=== PATIENT | female | born 1940 | race Caucasian/White ===

== ENCOUNTER 2017-09-10 15:45 | Inpatient (IN) | payer MEDICARE, OTHER ==
--- NOTE | 2017-09-10 16:06 | EDM.PDOC ---
ED HPI GENERAL MEDICAL PROBLEM - General Chief Complaint: Respiratory Problem Stated Complaint: fever, cough, SOB Time Seen by Provider: 09/10/17 15:55 Source of Information: Reports: Patient, Family History Limitations: Reports: No Limitations - History of Present Illness INITIAL COMMENTS - FREE TEXT/NARRATIVE: Patient is brought into the emergency room this evening by her daughters. She has complaints of shortness of breath, fever, and increasing weakness. She complains of these symptoms for the last couple of days. She does have a pharmaceutical tomorrow clinic, but her daughter didn't think she could wait until tomorrow. Medically she has a history of COPD, CHF, hypertension, as well as increased blood glucose levels that don't rise to actual diabetic levels. Her primary physician is Dr. Francine Kwon. She denies any other complaints currently. She currently lives at home. Onset: Gradual Duration: Getting Worse Location: Reports: Chest Associated Symptoms: Reports: cough w sputum, Fever/Chills, Shortness of Breath - Related Data Allergies Allergy/AdvReac Type Severity Reaction Status Date / Time No Known Drug Allergies Allergy Other Verified 09/10/17 15:59 seasonal Allergy Itching Uncoded 02/19/16 17:46 Home Meds: Home Meds Budesonide/Formoterol [Symbicort 160-4.5 MCG] 2 puff INH BID 12/15/13 [History] Calcium Citrate/Vitamin D3 [Calcium Citrate with D Tablet] 1 each PO DAILY 12/15 [History] Cholecalciferol (Vitamin D3) [Vitamin D3] 2,000 unit PO DAILY 12/15/13 [History] Glucosamine/D3/Boswellia Tiffanie [Glucosamine Complex Tablet] 1 tab PO DAILY 12/15 [History] Multivitamin [Multivitamins] 1 each PO DAILY 12/15/13 [History] Ascorbate Calcium [Vitamin C] 500 mg PO DAILY 01/25/14 [History] Albuterol [Proventil Neb Soln] 2.5 mg NEB Q4H PRN 11/28/15 [History] Albuterol [Proventil Neb Soln] 2.5 mg NEB QID 11/28/15 [History] Aspirin 81 mg PO DAILY 11/28/15 [History] Cyanocobalamin (Vitamin B-12) [B-12] 500 mcg PO DAILY 11/28/15 [History] Furosemide 40 mg PO BID 11/28/15 [History] Magnesium Oxide [Magnesium] 400 mg PO DAILY 11/28/15 [History] Omeprazole 20 mg PO DAILY 11/28/15 [History] Oxybutynin 5 mg PO BID 11/28/15 [History] Simvastatin [Zocor] 10 mg PO BEDTIME 11/28/15 [History] Docusate Sodium [Colace] 100 mg PO BID 02/19/16 [History] Ferrous Gluconate 324 mg PO Q2D 02/19/16 [History] Potassium Chloride [Klor-Con M20] 20 meq PO DAILY 02/19/16 [History] Acetaminophen [Tylenol] 650 mg PO Q4H PRN #0 tablet 02/25/16 [Rx] Metoprolol Tartrate [Lopressor] 50 mg PO BID tablet 02/25/16 [Rx] Tiotropium [Spiriva Handihaler] 18 mcg INH DAILY 02/27/16 [History] predniSONE 4 mg PO DAILY 09/10/17 [History] Past Medical History HEENT History: Reports: Cataract, Hard of Hearing Cardiovascular History: Reports: CAD, Heart Failure, High Cholesterol, Hypertension, SOB on Exertion Respiratory History: Reports: COPD, SOB Gastrointestinal History: Reports: Diverticulosis, GERD [employer] History: Reports: Ectopic Musculoskeletal History: Reports: Arthritis - Past Surgical History HEENT Surgical History: Reports: Cataract Surgery GI Surgical History: Reports: Appendectomy, Cholecystectomy, Colonoscopy, Hernia , Abdominal Social & Family History - Family History Family Medical History: Noncontributory - Tobacco Use Smoking Status *Q: Former Smoker Years of Tobacco use: 55 Packs/Tins Daily: 1 Used Tobacco, but Quit: Yes Month Tobacco Last Used: 3 years ago Second Hand Smoke Exposure: Yes - Alcohol Use Days Per Week of Alcohol Use: 7 Number of Drinks Per Day: 1 Total Drinks Per Week: 7 - Recreational Drug Use Recreational Drug Use: No ED ROS GENERAL - Review of Systems Review Of Systems: See Below Constitutional: Reports: Fever HEENT: Reports: No Symptoms Respiratory: Reports: Shortness of Breath, Cough, Sputum Cardiovascular: Reports: No Symptoms Endocrine: Reports: No Symptoms GI/Abdominal: Reports: No Symptoms : Reports: No Symptoms Musculoskeletal: Reports: No Symptoms Skin: Reports: No Symptoms Neurological: Reports: Weakness Psychiatric: Reports: No Symptoms Hematologic/Lymphatic: Reports: No Symptoms Immunologic: Reports: No Symptoms ED EXAM, GENERAL - Physical Exam Exam: See Below Exam Limited By: No Limitations General Appearance: Alert, WD/WN, No Apparent Distress Eye Exam: Bilateral Eye: EOMI Ears: Normal TMs Nose: Normal Inspection, Normal Mucosa, No Blood Throat/Mouth: Normal Inspection, Normal Lips, Normal Teeth, Normal Gums, Normal Oropharynx, Normal Voice, No Airway Compromise Head: Atraumatic, Normocephalic Neck: Normal Inspection, Supple, Non-Tender, Full Range of Motion Respiratory/Chest: Decreased Breath Sounds, Rales, Prolonged Expiration Cardiovascular: Irregularly Irregular Peripheral Pulses: 1+: Posterior Tibial (L), Posterior Tibial (R), Dorsalis Pedis (L), Dorsalis Pedis (R) GI/Abdominal: Normal Bowel Sounds, Soft, Non-Tender Extremities: Normal Capillary Refill, Pedal Edema (3+ bilateral edema) Neurological: Alert, Oriented, CN II-XII Intact, Normal Cognition, Normal Gait, Normal Reflexes, No Motor/Sensory Deficits Skin Exam: Wound/Incision (Wound to right big toe that is weeping. Left foot has very poor circulation with poor color) Lymphatic: No Adenopathy EKG INTERPRETATION EKG Date: 09/10/17 Time: 16:54 Rhythm: A-Fib Rate (Beats/Min): 86 Comparison: Change From Previous EKG EKG Interpretation Comments: 1. atrial fibrillation 2. low QRS voltage to precordial leads 3. Possible anterior TX, indeterminant age 4. Inferior TX, indeterminant age 5. Moderate T-wave abnormality, consider lateral ischemia Course - Vital Signs Last Recorded V/S: Last Vital Signs Temp 36.6 C 09/10/17 17:57 Pulse 92 09/10/17 17:57 Resp 22 H 09/10/17 17:57 BP 137/64 09/10/17 17:57 Pulse Ox 92 L 09/10/17 20:00 - Orders/Labs/Meds Orders: Active Orders 24 hr Category Date Time Status RT Aerosol Therapy [RC] ASDIRECTED Care 09/10/17 17:04 Active Chest 1V Frontal [CR] Stat Exams 09/10/17 16:11 Taken CULTURE BLOOD [BC] Stat Lab 09/10/17 16:28 Received CULTURE BLOOD [BC] Stat Lab 09/10/17 16:40 Results CULTURE URINE [RM] Stat Lab 09/10/17 16:11 Ordered CULTURE WOUND [RM] Stat Lab 09/10/17 16:41 Received UA W/MICROSCOPIC [URIN] Stat Lab 09/10/17 16:11 Ordered Sodium Chloride 0.9% [Saline Flush] Med 09/10/17 16:14 Active 10 ml FLUSH ASDIRECTED PRN Blood Culture x2 Reflex Set [OM.PC] Stat Oth 09/10/17 16:11 Ordered Saline Lock Insert [OM.PC] Routine Oth 09/10/17 16:14 Ordered Medication Orders Sodium Chloride (Saline Flush) 10 ml FLUSH ASDIRECTED PRN PRN Reason: Keep Vein Open Labs: Laboratory Tests 09/10/17 09/10/17 09/10/17 Range/Units 16:28 16:28 16:28 WBC 12.6 H (4.0-10.0) x10^3/uL RBC 3.28 L (4.00-5.50) x10^6/uL Hgb 10.3 L (12.0-16.0) g/dL Hct 31.3 L (33.0-47.0) % MCV 95.4 H (78.0-93.0) fL MCH 31.4 (26.0-32.0) pg MCHC 32.9 (32.0-36.0) g/dL RDW Coeff of Ty 14.8 (10.0-15.0) % Plt Count 386 D (130-400) x10^3/uL Add Manual Diff Yes Neutrophils % (Manual) 85 H (50-80) % Band Neutrophils % 1 (0-6) % Lymphocytes % (Manual) 8 L (25-50) % Monocytes % (Manual) 5 (2-11) % Basophils % (Manual) 1 (0-1) % Platelet Estimate Adequate PT (9.8-11.8) SEC INR (2.0-3.5) Sodium 138 (136-145) mmol/L Potassium 3.2 L (3.5-5.1) mmol/L Chloride 93 L (98-107) mmol/L Carbon Dioxide 37 H (21-32) mmol/L BUN 12 (7-18) mg/dL Creatinine 1.0 (0.55-1.02) mg/dL Est Cr Clr Drug Dosing 41.05 mL/min Estimated GFR (MDRD) 53 Glucose 147 H (74-106) mg/dL Lactic Acid 1.2 (0.4-2.0) mmol/L Calcium 8.6 (8.5-10.1) mg/dL Corrected Calcium 9.96 (8.5-10.1) mg/dL Total Bilirubin 0.5 (0.2-1.0) mg/dL AST 18 (15-37) U/L ALT 20 (14-59) U/L Alkaline Phosphatase 102 (46-116) U/L Creatine Kinase 31 (26-192) U/L Troponin I (<=0.056) ng/mL C-Reactive Protein 20.0 H (<=0.9) mg/dL NT-Pro-B Natriuret Pep 907 H (<=450) pg/mL Total Protein 6.7 (6.4-8.2) g/dL Albumin 2.3 L (3.4-5.0) g/dL Globulin 4.4 Albumin/Globulin Ratio 0.52 09/10/17 09/10/17 Range/Units 16:28 16:28 WBC (4.0-10.0) x10^3/uL RBC (4.00-5.50) x10^6/uL Hgb (12.0-16.0) g/dL Hct (33.0-47.0) % MCV (78.0-93.0) fL MCH (26.0-32.0) pg MCHC (32.0-36.0) g/dL RDW Coeff of Ty (10.0-15.0) % Plt Count (130-400) x10^3/uL Add Manual Diff Neutrophils % (Manual) (50-80) % Band Neutrophils % (0-6) % Lymphocytes % (Manual) (25-50) % Monocytes % (Manual) (2-11) % Basophils % (Manual) (0-1) % Platelet Estimate PT 10.7 (9.8-11.8) SEC INR 1.0 L (2.0-3.5) Sodium (136-145) mmol/L Potassium (3.5-5.1) mmol/L Chloride (98-107) mmol/L Carbon Dioxide (21-32) mmol/L BUN (7-18) mg/dL Creatinine (0.55-1.02) mg/dL Est Cr Clr Drug Dosing mL/min Estimated GFR (MDRD) Glucose (74-106) mg/dL Lactic Acid (0.4-2.0) mmol/L Calcium (8.5-10.1) mg/dL Corrected Calcium (8.5-10.1) mg/dL Total Bilirubin (0.2-1.0) mg/dL AST (15-37) U/L ALT (14-59) U/L Alkaline Phosphatase (46-116) U/L Creatine Kinase (26-192) U/L Troponin I < 0.017 (<=0.056) ng/mL C-Reactive Protein (<=0.9) mg/dL NT-Pro-B Natriuret Pep (<=450) pg/mL Total Protein (6.4-8.2) g/dL Albumin (3.4-5.0) g/dL Globulin Albumin/Globulin Ratio Meds: Medications Generic Name Dose Route Start Last Admin Trade Name Freq PRN Reason Stop Dose Admin Sodium Chloride 10 ml 09/10/17 16:14 Saline Flush FLUSH ASDIRECTED PRN Keep Vein Open Discontinued Medications Generic Name Dose Route Start Last Admin Trade Name Freq PRN Reason Stop Dose Admin Albuterol 2.5 mg 09/10/17 17:04 09/10/17 17:15 Proventil Neb Soln NEB 09/10/17 17:05 2.5 mg ONETIME ONE Administration Ciprofloxacin/Dextrose 400 mg/ 200 mls @ 200 mls/hr 09/10/17 16:16 09/10/17 19:48 Premix IV 09/10/17 17:15 200 mls/hr ONETIME ONE Administration Piperacillin Sod/Tazobactam 100 mls @ 200 mls/hr 09/10/17 16:14 09/10/17 16: 47 Sod 4.5 gm/ Sodium Chloride IV 09/10/17 16:43 200 mls/hr ONETIME ONE Administration Vancomycin HCl 1,250 mg/ 250 mls @ 200 mls/hr 09/10/17 16:14 09/10/17 17:33 Sodium Chloride IV 09/10/17 17:28 200 mls/hr ONETIME ONE Administration Ciprofloxacin/Dextrose 400 mg/ 200 mls @ 200 mls/hr 09/10/17 20:00 09/10/17 19:55 Premix IV 09/10/17 20:59 Not Given ONETIME ONE Methylprednisolone Sodium Succinate 125 mg 09/10/17 17:04 09/10/17 17:31 Solu-Medrol IVPUSH 09/10/17 17:05 125 mg ONETIME ONE Administration - Re-Assessments/Exams Free Text/Narrative Re-Assessment/Exam: 09/10/17 21:12 After reviewing all of her x-rays labs and pertinent diagnostics it was felt to admit her at least overnight for observation. It does appear that she's got a bilateral pneumonia that may be starting according to her x-ray. Also on physical exam patient has a weeping wound to the right big toe. Upon inspection it was also found that the rest of her toes on that side of the foot are in need of hygiene as the nails appear that did not of been covered for at least a year there is some severe fungal infection to all nailbeds and the odor is very pungent. Her left foot did not have any wounds but did have very poor circulation and color was a light purple in nature. Pedal pulses were barely palpable to both sides. She does have severe dependent edema, her proBNP is elevated lactic acid is normal but her CRP is elevated as are her WBCs. Based on her history of former smoker COPD CHF and past history of pneumonia and we' ll start her on our sepsis protocol starting her on vancomycin and Zosyn as well as Cipro due to suspicion of pseudomonas infection. Departure - Departure Time of Disposition: 18:10 Disposition: Refer to Observation Condition: Good Clinical Impression: CAP (community acquired pneumonia), COPD (chronic obstructive pulmonary disease ), CHF (congestive heart failure) - Discharge Information - My Orders Last 24 Hours: My Active Orders 09/10/17 16:11 Chest 1V Frontal [CR] Stat CULTURE URINE [RM] Stat UA W/MICROSCOPIC [URIN] Stat Blood Culture x2 Reflex Set [OM.PC] Stat 09/10/17 16:14 Sodium Chloride 0.9% [Saline Flush] 10 ml FLUSH ASDIRECTED PRN Saline Lock Insert [OM.PC] Routine 09/10/17 16:28 CULTURE BLOOD [BC] Stat 09/10/17 16:40 CULTURE BLOOD [BC] Stat 09/10/17 16:41 CULTURE WOUND [RM] Stat 09/10/17 17:04 RT Aerosol Therapy [RC] ASDIRECTED - Assessment/Plan Last 24 Hours: My Active Orders 09/10/17 16:11 Chest 1V Frontal [CR] Stat CULTURE URINE [RM] Stat UA W/MICROSCOPIC [URIN] Stat Blood Culture x2 Reflex Set [OM.PC] Stat 09/10/17 16:14 Sodium Chloride 0.9% [Saline Flush] 10 ml FLUSH ASDIRECTED PRN Saline Lock Insert [OM.PC] Routine 09/10/17 16:28 CULTURE BLOOD [BC] Stat 09/10/17 16:40 CULTURE BLOOD [BC] Stat 09/10/17 16:41 CULTURE WOUND [RM] Stat 09/10/17 17:04 RT Aerosol Therapy [RC] ASDIRECTED
[2017-09-10] MEDS ORDERED: Piperacillin/Tazobactam 4.5 GM in Sodium Chloride 0.9% 100 ML IV ONE (16:14)
[2017-09-10] MEDS ORDERED: Ciprofloxacin in D5W 400 MG in Premix Bag 1 BAG IV ONE ×4 (16:16→20:00)
[2017-09-10] MEDS ORDERED: Albuterol 0.083% 2.5 MG/3 ML Neb Soln NEB ONE (17:04)
[2017-09-10] MEDS ORDERED: methylPREDNISolone Sodium Succinate 125 MG/2 ML SDV IVPUSH ONE (17:04)
[2017-09-10] MEDS ORDERED: Acetaminophen 325 MG Tab PO PRN (21:27)
[2017-09-10] MEDS: Albuterol/Ipratropium 3.0-0.5 MG/3 ML Neb Soln NEB PRN (22:35)
[2017-09-11] MEDS: Piperacillin/Tazobactam 3.375 GM in Sodium Chloride 0.9% 100 ML IV SCH ×3 (00:04→16:31)
[2017-09-11] MEDS: Sodium Chloride 0.9% 10 ML Syringe FLUSH PRN ×3 (00:05→22:11)
[2017-09-11] MEDS: Albuterol/Ipratropium 3.0-0.5 MG/3 ML Neb Soln NEB PRN (07:27)
[2017-09-11] MEDS: Aspirin 81 MG Tab.Chew PO SCH (07:51)
[2017-09-11] MEDS: Docusate Sodium 100 MG Cap PO SCH ×2 (07:51→20:09)
[2017-09-11] MEDS: Enoxaparin 40 MG/0.4 ML Syringe SUBCUT SCH (07:52)
[2017-09-11] MEDS ORDERED: Tiotropium Inhaler 18 MCG Inhalation Powder Cap Kit of 5 INH SCH (08:00)
[2017-09-11] MEDS ORDERED: Ciprofloxacin in D5W 400 MG in Premix Bag 1 BAG IV SCH ×2 (08:00)
[2017-09-11] MEDS ORDERED: Furosemide 100 MG/10 ML SDV IV ONE (08:00)
[2017-09-11] MEDS ORDERED: Non-Formulary Medication 1 Each (Budesonide/Formoterol 2 PUFF) INH SCH (08:00)
[2017-09-11] MEDS ORDERED: Potassium Chloride 20 MEQ Tab.ER PO SCH (08:00)
[2017-09-11] MEDS ORDERED: Albuterol 0.083% 2.5 MG/3 ML Neb Soln NEB PRN (08:43)
[2017-09-11] MEDS: Multivitamins with Iron/Calcium/Folic Acid/Minerals Tab PO SCH (09:43)
[2017-09-11] MEDS: Cyanocobalamin (Vitamin B12) 250 MCG Tab PO SCH (09:43)
[2017-09-11] MEDS: predniSONE 1 MG Tab PO SCH (09:43)
[2017-09-11] MEDS: Omeprazole 20 MG Cap.CR PO SCH (09:43)
[2017-09-11] MEDS: Ascorbic Acid 500 MG Tab PO SCH (09:44)
[2017-09-11] MEDS: Metoprolol Tartrate 50 MG Tab PO SCH ×2 (09:44→20:09)
[2017-09-11] MEDS: Ferrous Sulfate 325 MG Tab PO SCH (09:44)
[2017-09-11] MEDS: Cholecalciferol (Vitamin D3) 1,000 Unit Tab PO SCH (09:46)
[2017-09-11] MEDS: Furosemide 40 MG Tab PO SCH ×2 (09:46→16:31)
[2017-09-11] MEDS: Oxybutynin 5 MG Tab PO SCH ×2 (09:46→20:08)
[2017-09-11] MEDS: Magnesium Oxide 400 MG Tab PO SCH (09:46)
[2017-09-11] MEDS: Calcium Carbonate/Vitamin D3 1250 MG-200 Unit Tab PO SCH (09:46)
[2017-09-11] MEDS: Glucosamine 500 MG Cap PO SCH (09:48)
[2017-09-11] MEDS: Arformoterol 15 MCG/2 ML Neb Soln NEB SCH ×2 (10:19→20:08)
[2017-09-11] MEDS: Budesonide 0.5 MG/2 ML Neb Susp NEB SCH ×2 (10:19→20:08)
--- NOTE | 2017-09-11 10:34 | PCM.PN ---
- General Info Date of Service: 09/11/17 Admission Dx/Problem (Free Text): Pt. was admitted observation yesterday by BELEN Bailey. Pt. was diagnosed with bilat. pnumonia, COPD exacerbation, Mild CHF and UTI. She met sepsis criteria and was started on Zosyn, vancomycin as well as cipro. She states that her work of breathing has improved somewhat. Pt. states that she is still very weak and short of breath. Her appetite is decreased somewhat. Functional Status: Reports: Pain Controlled - Review of Systems General: Reports: No Symptoms HEENT: Reports: No Symptoms Pulmonary: Reports: Shortness of Breath, Cough Cardiovascular: Reports: No Symptoms, Orthopnea, PND Gastrointestinal: Reports: No Symptoms Genitourinary: Reports: Other (UTI) Musculoskeletal: Reports: No Symptoms Skin: Reports: No Symptoms Neurological: Reports: No Symptoms Psychiatric: Reports: No Symptoms - Patient Data Vitals - Most Recent: Last Vital Signs Temp 36.8 C 09/11/17 05:47 Pulse 74 09/11/17 09:54 Resp 22 H 09/11/17 09:54 BP 140/56 L 09/11/17 09:54 Pulse Ox 94 L 09/11/17 09:54 Weight - Most Recent: 78.018 kg I&O - Last 24 Hours: Intake & Output 09/10/17 09/11/17 09/11/17 22:59 06:59 14:59 Intake Total 450 100 240 Balance 450 100 240 Lab Results Last 24 Hours: Laboratory Results - last 24 hr 09/11/17 09/11/17 09/11/17 Range/Units 03:40 06:54 06:54 WBC 14.9 H (4.0-10.0) x10^3/uL RBC 2.97 L (4.00-5.50) x10^6/uL Hgb 9.0 L (12.0-16.0) g/dL Hct 28.4 L (33.0-47.0) % MCV 95.6 H (78.0-93.0) fL MCH 30.3 (26.0-32.0) pg MCHC 31.7 L (32.0-36.0) g/dL RDW Coeff of Ty 14.8 (10.0-15.0) % Plt Count 365 (130-400) x10^3/uL Add Manual Diff Yes Neutrophils % (Manual) 91 H (50-80) % Band Neutrophils % 8 H (0-6) % Lymphocytes % (Manual) 1 L (25-50) % Platelet Estimate Adequate C-Reactive Protein 14.9 H (<=0.9) mg/dL Urine Color Yellow (YELLOW) Urine Appearance Turbid H (CLEAR) Urine pH 6.0 (5.0-8.0) Ur Specific [place] 1.025 Urine Protein Trace H (NEGATIVE) mg/dL Urine Glucose (UA) Negative (NEGATIVE) mg/dL Urine Ketones Negative (NEGATIVE) mg/dL Urine Occult Blood Small H (NEGATIVE) Urine Nitrite Positive H (NEGATIVE) Urine Bilirubin Negative (NEGATIVE) Urine Urobilinogen 0.2 (0.2) EU/dL Ur Leukocyte Esterase Large H (NEGATIVE) Urine RBC 5-10 H (NOT SEEN) /HPF Urine WBC Packed (NOT SEEN) /HPF Urine WBC Clumps Few Ur Squamous Epith Cells Rare (NEGATIVE) /HPF Amorphous Sediment Few Urine Bacteria Moderate H (NEGATIVE) /HPF Duc Results Last 24 Hours: Microbiology 09/10/17 18:10 Gram Stain - Final Sputum - Expectorated Med Orders - Current: Current Medications Acetaminophen (Tylenol) 650 mg PO Q4H PRN PRN Reason: Pain (Mild 1-3)/fever Albuterol (Proventil Neb Soln) 2.5 mg NEB Q4HRRT PRN PRN Reason: Shortness of Breath Albuterol/Ipratropium (Duoneb 3.0-0.5 Mg/3 Ml) 3 ml NEB Q4H PRN PRN Reason: dyspnea/wheezing Last Admin: 09/11/17 07:27 Dose: 3 ml Albuterol/Ipratropium (Duoneb 3.0-0.5 Mg/3 Ml) 3 ml NEB QIDRT [facility] Arformoterol Tartrate (Brovana) 15 mcg NEB BIDRT [facility] Last Admin: 09/11/17 10:19 Dose: 15 mcg Ascorbic Acid (Vitamin C) 500 mg PO DAILY [facility] Last Admin: 09/11/17 09:44 Dose: 500 mg Aspirin (Aspirin) 81 mg PO DAILY [facility] Last Admin: 09/11/17 07:51 Dose: 81 mg Budesonide (Pulmicort) 0.5 mg NEB BIDRT [facility] Last Admin: 09/11/17 10:19 Dose: 0.5 mg Calcium Carbonate (Calcium Carbonate/Vitamin D 1250 Mg-200 Unit) 1 tab PO DAILY [facility] Last Admin: 09/11/17 09:46 Dose: 1 tab Cholecalciferol (Vitamin D3) 2,000 units PO DAILY [facility] Last Admin: 09/11/17 09:46 Dose: 2,000 units Cyanocobalamin (Vitamin B12) 500 mcg PO DAILY [facility] Last Admin: 09/11/17 09:43 Dose: 500 mcg Docusate Sodium (Colace) 100 mg PO BID [facility] Last Admin: 09/11/17 07:51 Dose: 100 mg Enoxaparin Sodium (Lovenox) 40 mg SUBCUT DAILY [facility] Last Admin: 09/11/17 07:52 Dose: 40 mg Ferrous Sulfate (Ferrous Sulfate) 325 mg PO Q2D@0800 [facility] Last Admin: 09/11/17 09:44 Dose: 325 mg Furosemide (Lasix) 40 mg PO BIDDIURETIC [facility] Last Admin: 09/11/17 09:46 Dose: Not Given Glucosamine Sulfate (Glucosamine Sulfate) 500 mg PO DAILY [facility] Last Admin: 09/11/17 09:48 Dose: 500 mg Piperacillin Sod/Tazobactam (Sod 3.375 gm/ Sodium Chloride) 100 mls @ 25 mls/ hr IV Q8H [facility] Last Admin: 09/11/17 09:43 Dose: 25 mls/hr Magnesium Oxide (Magnesium Oxide) 400 mg PO DAILY [facility] Last Admin: 09/11/17 09:46 Dose: 400 mg Methylprednisolone Sodium Succinate (Solu-Medrol) 40 mg IVPUSH Q12H [facility] Metoprolol Tartrate (Lopressor) 50 mg PO BID [facility] Last Admin: 09/11/17 09:44 Dose: 50 mg Multivitamins/Minerals (Thera M Plus) 1 tab PO DAILY [facility] Last Admin: 09/11/17 09:43 Dose: 1 tab Omeprazole (Omeprazole) 20 mg PO DAILY@0700 [facility] Last Admin: 09/11/17 09:43 Dose: 20 mg Oxybutynin Chloride (Oxybutynin) 5 mg PO BID [facility] Last Admin: 09/11/17 09:46 Dose: 5 mg Potassium Chloride (Klor-Con M20) 20 meq PO DAILY [facility] Last Admin: 09/11/17 09:46 Dose: 20 meq Prednisone (Prednisone) 4 mg PO DAILY [facility] Last Admin: 09/11/17 09:43 Dose: 4 mg Simvastatin (Zocor) 10 mg PO BEDTIME [facility] Sodium Chloride (Saline Flush) 10 ml FLUSH ASDIRECTED PRN PRN Reason: Keep Vein Open Last Admin: 09/11/17 00:05 Dose: 10 ml Discontinued Medications Albuterol (Proventil Neb Soln) 2.5 mg NEB ONETIME ONE Stop: 09/10/17 17:05 Last Admin: 09/10/17 17:15 Dose: 2.5 mg Furosemide (Lasix) 80 mg IV ONETIME ONE Stop: 09/11/17 08:01 Last Admin: 09/11/17 07:51 Dose: 80 mg Ciprofloxacin/Dextrose 400 mg/ (Premix) 200 mls @ 200 mls/hr IV ONETIME ONE Stop: 09/10/17 17:15 Last Admin: 09/10/17 19:48 Dose: 200 mls/hr Piperacillin Sod/Tazobactam (Sod 4.5 gm/ Sodium Chloride) 100 mls @ 200 mls/hr IV ONETIME ONE Stop: 09/10/17 16:43 Last Admin: 09/10/17 16:47 Dose: 200 mls/hr Vancomycin HCl 1,250 mg/ (Sodium Chloride) 250 mls @ 200 mls/hr IV ONETIME ONE Stop: 09/10/17 17:28 Last Admin: 09/10/17 17:33 Dose: 200 mls/hr Ciprofloxacin/Dextrose 400 mg/ (Premix) 200 mls @ 200 mls/hr IV ONETIME ONE Stop: 09/10/17 20:59 Last Admin: 09/10/17 19:55 Dose: Not Given Ciprofloxacin/Dextrose 400 mg/ (Premix) 200 mls @ 200 mls/hr IV Q12H [facility] Last Admin: 09/11/17 07:50 Dose: 200 mls/hr Methylprednisolone Sodium Succinate (Solu-Medrol) 125 mg IVPUSH ONETIME ONE Stop: 09/10/17 17:05 Last Admin: 09/10/17 17:31 Dose: 125 mg - Exam Quality Assessment: Supplemental Oxygen General: Alert, Oriented HEENT: Pupils Equal, Pupils Reactive Neck: Supple. No: No Thyromegaly, JVD Lungs: Decreased Breath Sounds, Crackles, Rales, Rhonchi, Wheezing Cardiovascular: No: Regular Rhythm GI/Abdominal Exam: Normal Bowel Sounds, Soft, Non-Tender, No Organomegaly, No Distention, No Abnormal Bruit, No Mass, Pelvis Stable (Female) Exam: Deferred Back Exam: Normal Inspection, Full Range of Motion, Paraspinal Tenderness Extremities: Normal Range of Motion, Non-Tender, Normal Capillary Refill, Other (statis pigmentation and several ulcers noted to legs) Peripheral Pulses: 3+: Radial (L), Radial (R) ( ) Skin: Warm, Dry, Intact Neurological: No New Focal Deficit Psy/Mental Status: Alert, Normal Affect, Normal Mood - Problem List Review Problem List Initiated/Reviewed/Updated: Yes - My Orders Last 24 Hours: My Active Orders 09/11/17 09:09 RT Aerosol Therapy [RC] ASDIRECTED 09/11/17 09:15 Arformoterol [Brovana] 15 mcg NEB BIDRT 09/11/17 09:30 Budesonide [Pulmicort] 0.5 mg NEB BIDRT 09/11/17 10:05 Incentive Spirometry [RT Incentive Spirometry] [RC] ASDIRECTED 09/11/17 10:10 INFLUENZA A+B AG SCREEN [RM] Stat 09/11/17 10:11 Flutter Valve Therapy [RT Chest Physiotherapy] [RC] ASDIRECTED 09/11/17 10:15 methylPREDNISolone Sod Succ [Solu-MEDROL] 40 mg IVPUSH Q12H 09/11/17 10:18 Patient Status [ADT] Routine - Plan Plan:: Pt. is being transitioned from observation to acute. Francine Kwon will take over on the pt. At this point, will DC Cipro, Start Solu Medrol 40mg BID Start incentive spirometry and flutter valve.
[2017-09-11] MEDS: Albuterol/Ipratropium 3.0-0.5 MG/3 ML Neb Soln NEB SCH ×3 (10:47→20:08)
[2017-09-11] MEDS: methylPREDNISolone Sodium Succinate 40 MG/1 ML SDV IVPUSH SCH ×2 (10:55→22:11)
[2017-09-11] MEDS: Potassium Chloride 20 MEQ Tab.ER PO SCH ×2 (17:45→20:08)
[2017-09-11] MEDS: Simvastatin 10 MG Tab PO SCH (20:09)
[2017-09-12] MEDS: Piperacillin/Tazobactam 3.375 GM in Sodium Chloride 0.9% 100 ML IV SCH ×2 (00:57→08:06)
[2017-09-12] MEDS: Omeprazole 20 MG Cap.CR PO SCH ×2 (05:31→06:21)
[2017-09-12] MEDS: Albuterol/Ipratropium 3.0-0.5 MG/3 ML Neb Soln NEB SCH ×4 (07:17→20:05)
[2017-09-12] MEDS: Budesonide 0.5 MG/2 ML Neb Susp NEB SCH (07:17)
[2017-09-12] MEDS: Arformoterol 15 MCG/2 ML Neb Soln NEB SCH ×2 (07:17→20:04)
[2017-09-12] MEDS: Aspirin 81 MG Tab.Chew PO SCH (08:04)
[2017-09-12] MEDS: Ascorbic Acid 500 MG Tab PO SCH (08:05)
[2017-09-12] MEDS: Glucosamine 500 MG Cap PO SCH (08:05)
[2017-09-12] MEDS: Cholecalciferol (Vitamin D3) 1,000 Unit Tab PO SCH (08:05)
[2017-09-12] MEDS: Oxybutynin 5 MG Tab PO SCH ×2 (08:05→20:03)
[2017-09-12] MEDS: Cyanocobalamin (Vitamin B12) 250 MCG Tab PO SCH (08:05)
[2017-09-12] MEDS: Metoprolol Tartrate 50 MG Tab PO SCH ×2 (08:05→20:03)
[2017-09-12] MEDS: Multivitamins with Iron/Calcium/Folic Acid/Minerals Tab PO SCH (08:06)
[2017-09-12] MEDS: Magnesium Oxide 400 MG Tab PO SCH ×3 (08:06→20:03)
[2017-09-12] MEDS: Docusate Sodium 100 MG Cap PO SCH ×2 (08:06→20:05)
[2017-09-12] MEDS: predniSONE 1 MG Tab PO SCH (08:06)
[2017-09-12] MEDS: Potassium Chloride 20 MEQ Tab.ER PO SCH ×2 (08:06→10:10)
[2017-09-12] MEDS: Furosemide 40 MG Tab PO SCH ×2 (08:06→12:56)
[2017-09-12] MEDS: Enoxaparin 40 MG/0.4 ML Syringe SUBCUT SCH (08:06)
[2017-09-12] MEDS: Calcium Carbonate/Vitamin D3 1250 MG-200 Unit Tab PO SCH (08:06)
[2017-09-12] MEDS: Azithromycin 250 MG Tab PO SCH (10:09)
[2017-09-12] MEDS: methylPREDNISolone Sodium Succinate 40 MG/1 ML SDV IVPUSH SCH ×2 (10:11→22:02)
[2017-09-12] MEDS: cefTRIAXone 1 GM Vial IVPUSH SCH (12:56)
--- NOTE | 2017-09-12 14:15 | PN ---
Progress Note for MIGUEL Perez TVEDT Date: 09/12/2017 Room #: VM.202 SUBJECTIVE: Hospital day #3 on a 77-year-old seen today for followup with pneumonia and COPD exacerbation. Her sputum is growing gram-positive cocci in chains. She has been afebrile. Her white count is improving at this point. She has been on Zosyn now for 2 days. She did have a culture on her toe that is growing some coagulase-negative Staph, but that is looking much better now after her bath. She still feels tired, but is not coughing anymore. Her breathing is staying the same. OBJECTIVE: Vital Signs: Her temperature this morning was 98.2, pulse 86, blood pressure 143/51, respiratory rate 18, and O2 96% on 4 L. General: She is in no acute distress. Heart: Irregular with murmur. Respiratory: Lungs sounds decreased again over the left base. She has some crackles noted on the right. Abdomen: Nontender. Extremities: Improving with edema, but still at least 1+ in the ankles. Left foot is bruised. There are no open sores or ulcers. LABORATORY DATA: Lab work today shows white count 13.2, hemoglobin stable at 9, and platelets 397. Sodium 133, potassium 4.1, chloride 94, bicarb 36, BUN 18, creatinine 1, glucose 169, and magnesium 1.5. ASSESSMENT: 1. Community-acquired pneumonia, left lower lobe. Gram-positive cocci on sputum culture. Blood cultures negative. 2. Chronic obstructive pulmonary disease with exacerbation due to pneumonia, severe underlying chronic obstructive pulmonary disease with chronic bronchitis. 3. Chronic hypoxic respiratory failure. 4. Remote history of peptic ulcer disease. 5. Polymyalgia, on prednisone. 6. Irregular heartbeat. EKG today did not show atrial fibrillation, it showed sinus with premature ventricular contractions. 7. Mild hyponatremia. 8. Chronic diastolic heart failure, on oral Lasix 40 b.i.d. 9. Hypomagnesemia, replace orally. 10.Prediabetes with hyperglycemia due to steroids. We will monitor q.i.d. PLAN: At this point, the patient will continue on acute cares. I have stopped IV Zosyn. I will change her over to IV Rocephin and Zithromax. We will continue Lovenox for DVT prophylaxis. We will continue IV Solu-Medrol 40 b.i.d., but decrease that if needed. If she loses her IV again, they should let me know because we could potentially get her over to oral agents in the next day or 2. We will also change her over to code-3 status after discussing with her that she would want CPR, but not an intubation. We talked about it, sort of being an all-or-none concept. Certainly, people can get intubated with pneumonia and then their heart does not stop, but if your heart stops and CPR is started, it is unlikely that your are aware enough to protect your airway. Therefore, it would not make much sense. The patient in the end states, because of declining health over the last couple of years, she just really does not want to have a tube put in, and she does not want to have aggressive interventions like CPR. Therefore, her code status was changed. We will repeat her lab work in the morning. We will keep her on her nebulizers. We will keep her working with incentive spirometry and the flutter valve. ABRAHAMA: 09/12/2017 13:09:32 MODL: 09/12/2017 13:34:07 /[id number] MTDD
--- NOTE | 2017-09-12 14:15 | PN ---
Progress Note for MIGUEL Perez RADHA Date: 09/11/2017 Room #: .202 SUBJECTIVE: Hospital day #2, on a 77-year-old admitted yesterday with pneumonia. She was having a couple of days shortness of breath and cough at home. She is chronically on oxygen up to 4 L. She did not have influenza, but was found to have an elevated white count. Her x-ray was suggesting infiltrate in the right lung base. She was started on IV vanco and Zosyn. There was also some concern for UTI, but she is having no dysuria. Otherwise, her CRP did improve from 20 to 14.5. Her lactic acid was never elevated. She still is short of breath and coughing up some tannish sputum. She is feeling quite fatigued. She had some changes over her toe, but that improved after a bath. There was no redness going up her leg, but some bruising because she dropped some water on it. Otherwise, she has been afebrile since admission. She is denying any chest pain. OBJECTIVE: VITAL SIGNS: Her temperature is 98.2, pulse 74, blood pressure 122/69, respiratory rate 18, O2 90 on 4 L. GENERAL: She is in no acute distress. HEART: Irregular with a murmur noted. RESPIRATORY: Lungs sounds noted to be decreased, probably worse in the left base. Crackles noted over the right lung. ABDOMEN: Nondistended, nontender. Right leg and left leg with 2+ edema at the ankle. MENTAL STATUS: She is alert and orientated x3. DERMATOLOGY: Her skin color is good. She is not overly pale. LABORATORY DATA: Today did show white count down to 14.9, hemoglobin 9, platelets 365. Hemoglobin last through the clinic in April was 11.4. ASSESSMENT: 1. Right lower lobe pneumonia. 2. Severe chronic obstructive pulmonary disease with exacerbation due to pneumonia. 3. Chronic hypoxic respiratory failure due to pneumonia and COPD. 4. History of paroxysmal atrial fibrillation. 5. Prediabetes. 6. Chronic diastolic heart failure stable. She did get a dose of IV Lasix. 7. History of mhp-SR-mbwavsorr myocardial infarction. Troponin was negative on admission. She is not having any chest pain. 8. Polymyalgia rheumatica, on chronic prednisone. 9. Hypokalemia, being replaced orally. 10.Malnutrition, albumin 2.3. PLAN: At this point, the patient will continue acute cares, Andreas Terry has already seen patient this morning and discussed increasing her status to acute cares. We will do IV Zosyn for now and await cultures. Vanco has already been discontinued. She was started on IV Solu-Medrol. We will add q.i.d. Accu- Cheks. We will keep her legs wrapped to help with the swelling. Otherwise, I will repeat lab work in the morning. I will increase her potassium supplements, check a magnesium level. MKA: 09/12/2017 12:57:53 MODL: 09/12/2017 13:14:56 /[id number]
[2017-09-12] MEDS ORDERED: Insulin Aspart 100 Units/ML 3 ML Pen SUBCUT ONE (17:05)
[2017-09-12] MEDS: Sodium Chloride 0.9% 10 ML Syringe FLUSH PRN ×2 (20:01→22:03)
[2017-09-12] MEDS: Simvastatin 10 MG Tab PO SCH (20:03)
[2017-09-12] MEDS: Insulin Detemir 100 Units/ML 3 ML Pen SUBCUT SCH (20:05)
[2017-09-13] MEDS: Omeprazole 20 MG Cap.CR PO SCH (06:32)
[2017-09-13] MEDS: Arformoterol 15 MCG/2 ML Neb Soln NEB SCH ×2 (07:04→20:03)
[2017-09-13] MEDS: Albuterol/Ipratropium 3.0-0.5 MG/3 ML Neb Soln NEB SCH ×4 (07:04→20:03)
[2017-09-13] MEDS: Docusate Sodium 100 MG Cap PO SCH ×2 (07:43→20:26)
[2017-09-13] MEDS: Aspirin 81 MG Tab.Chew PO SCH (07:43)
[2017-09-13] MEDS: Calcium Carbonate/Vitamin D3 1250 MG-200 Unit Tab PO SCH (07:43)
[2017-09-13] MEDS: Cholecalciferol (Vitamin D3) 1,000 Unit Tab PO SCH (07:44)
[2017-09-13] MEDS: Ferrous Sulfate 325 MG Tab PO SCH (07:44)
[2017-09-13] MEDS: Multivitamins with Iron/Calcium/Folic Acid/Minerals Tab PO SCH (07:44)
[2017-09-13] MEDS: Cyanocobalamin (Vitamin B12) 250 MCG Tab PO SCH (07:45)
[2017-09-13] MEDS: Oxybutynin 5 MG Tab PO SCH ×2 (07:45→20:25)
[2017-09-13] MEDS: Metoprolol Tartrate 50 MG Tab PO SCH ×2 (07:45→20:25)
[2017-09-13] MEDS: Ascorbic Acid 500 MG Tab PO SCH (07:46)
[2017-09-13] MEDS: Potassium Chloride 20 MEQ Tab.ER PO SCH (07:46)
[2017-09-13] MEDS: cefTRIAXone 1 GM Vial IVPUSH SCH (07:46)
[2017-09-13] MEDS: Azithromycin 250 MG Tab PO SCH (07:46)
[2017-09-13] MEDS: Enoxaparin 40 MG/0.4 ML Syringe SUBCUT SCH (07:46)
[2017-09-13] MEDS: Furosemide 40 MG Tab PO SCH ×2 (07:46→11:47)
[2017-09-13] MEDS: Magnesium Oxide 400 MG Tab PO SCH ×3 (07:46→20:26)
[2017-09-13] MEDS: Glucosamine 500 MG Cap PO SCH (07:48)
[2017-09-13 07:56] LABS: CHLORIDE,CL 96 mmol/L (98-107); SODIUM,NA 136 mmol/L (136-145)
[2017-09-13] MEDS ORDERED: cefTRIAXone 1 GM Vial IM SCH (09:00)
--- NOTE | 2017-09-13 09:11 | PCM.PN ---
- General Info Date of Service: 09/13/17 Admission Dx/Problem (Free Text): 1. RLL Pneumonia, gram positive cocci in sputum 2. Severe COPD exacerbation due to pneumonia 3. Chronic hypoxic respiratory failure duet to pneumonia and COPD 4. History of Paroxysmal Atrial Fib 5. Prediabetes 6. Chronic diastolic heart failure 7. Hx of Non-STEMI Subjective Update: Patient states her breathing feels about the same today; no better no worse. She states she does not have any pain. Her appetite has been fair. No issues with urination or BM's. She states she is trying to ambulate, but gets difficult with the SOB. No chest pain. No abdominal problems. She continues with chronic swelling of the RLE. SHIRA wraps in place. She still have a cough, but not able to expectorate any sputum. Over all, she feels somewhat better today then yesterday. She feels she has had slight improvement. Functional Status: Reports: Pain Controlled, Tolerating Diet, Urinating Pain Score: 0 - Review of Systems General: Reports: Weakness, Fatigue. Denies: Fever Pulmonary: Reports: Shortness of Breath, Cough. Denies: Sputum Cardiovascular: Denies: Chest Pain, Palpitations Gastrointestinal: Denies: Abdominal Pain, Nausea, Vomiting Skin: Reports: Other (chronic mottling of the left foot) Neurological: Reports: No Symptoms. Denies: Dizziness, Headache - Patient Data Vitals - Most Recent: Last Vital Signs Temp 36.6 C 09/13/17 06:00 Pulse 76 09/13/17 07:45 Resp 20 09/13/17 06:00 BP 144/77 H 09/13/17 07:45 Pulse Ox 97 09/13/17 07:06 Weight - Most Recent: 76.022 kg I&O - Last 24 Hours: Intake & Output 09/12/17 09/13/17 09/13/17 22:59 06:59 14:59 Intake Total 460 350 260 Output Total 100 200 Balance 360 150 260 Lab Results Last 24 Hours: Laboratory Results - last 24 hr 09/12/17 09/12/17 09/12/17 Range/Units 10:59 16:58 19:59 WBC (4.0-10.0) x10^3/uL RBC (4.00-5.50) x10^6/uL Hgb (12.0-16.0) g/dL Hct (33.0-47.0) % MCV (78.0-93.0) fL MCH (26.0-32.0) pg MCHC (32.0-36.0) g/dL RDW Coeff of Ty (10.0-15.0) % Plt Count (130-400) x10^3/uL Add Manual Diff Neutrophils % (Manual) (50-80) % Band Neutrophils % (0-6) % Lymphocytes % (Manual) (25-50) % Monocytes % (Manual) (2-11) % Metamyelocytes % (0) % Hypersegmented Neuts Vacuolated Monocytes Platelet Estimate Giant Platelets Polychromasia Anisocytosis Macrocytosis Spherocytes Ovalocytes Sodium (136-145) mmol/L Potassium (3.5-5.1) mmol/L Chloride (98-107) mmol/L Carbon Dioxide (21-32) mmol/L BUN (7-18) mg/dL Creatinine (0.55-1.02) mg/dL Est Cr Clr Drug Dosing mL/min Estimated GFR (MDRD) Glucose (74-106) mg/dL POC Glucose 139 H 278 H 173 H (74-106) mg/dL Calcium (8.5-10.1) mg/dL 09/13/1718 09/13/17 Range/Units 06:27 07:18 07:18 WBC 11.0 H (4.0-10.0) x10^3/uL RBC 3.08 L (4.00-5.50) x10^6/uL Hgb 9.5 L (12.0-16.0) g/dL Hct 30.0 L (33.0-47.0) % MCV 97.4 H (78.0-93.0) fL MCH 30.8 (26.0-32.0) pg MCHC 31.7 L (32.0-36.0) g/dL RDW Coeff of Ty 15.0 (10.0-15.0) % Plt Count 388 (130-400) x10^3/uL Add Manual Diff Yes Neutrophils % (Manual) 82 H (50-80) % Band Neutrophils % 4 (0-6) % Lymphocytes % (Manual) 7 L (25-50) % Monocytes % (Manual) 4 (2-11) % Metamyelocytes % 3 H (0) % Hypersegmented Neuts Rare H Vacuolated Monocytes Rare Platelet Estimate Adequate Giant Platelets Rare H Polychromasia 1+ slight H Anisocytosis Rare Macrocytosis 1+ slight H Spherocytes 1+ slight H Ovalocytes 1+ slight H Sodium 136 (136-145) mmol/L Potassium 4.0 (3.5-5.1) mmol/L Chloride 96 L (98-107) mmol/L Carbon Dioxide 38 H (21-32) mmol/L BUN 15 (7-18) mg/dL Creatinine 0.9 (0.55-1.02) mg/dL Est Cr Clr Drug Dosing 45.61 mL/min Estimated GFR (MDRD) > 60 Glucose 126 H (74-106) mg/dL POC Glucose 136 H (74-106) mg/dL Calcium 8.6 (8.5-10.1) mg/dL Med Orders - Current: Current Medications Acetaminophen (Tylenol) 650 mg PO Q4H PRN PRN Reason: Pain (Mild 1-3)/fever Albuterol (Proventil Neb Soln) 2.5 mg NEB Q4HRRT PRN PRN Reason: Shortness of Breath Albuterol/Ipratropium (Duoneb 3.0-0.5 Mg/3 Ml) 3 ml NEB QIDRT [facility] Last Admin: 09/13/17 07:04 Dose: 3 ml Arformoterol Tartrate (Brovana) 15 mcg NEB BIDRT [facility] Last Admin: 09/13/17 07:04 Dose: 15 mcg Ascorbic Acid (Vitamin C) 500 mg PO DAILY [facility] Last Admin: 09/13/17 07:46 Dose: 500 mg Aspirin (Aspirin) 81 mg PO DAILY [facility] Last Admin: 09/13/17 07:43 Dose: 81 mg Azithromycin (Zithromax) 500 mg PO DAILY [facility] Stop: 09/16/17 08:01 Last Admin: 09/13/17 07:46 Dose: 500 mg Calcium Carbonate (Calcium Carbonate/Vitamin D 1250 Mg-200 Unit) 1 tab PO DAILY [facility] Last Admin: 09/13/17 07:43 Dose: 1 tab Ceftriaxone Sodium (Rocephin) 1 gm IM DAILY [facility] Cholecalciferol (Vitamin D3) 2,000 units PO DAILY [facility] Last Admin: 09/13/17 07:44 Dose: 2,000 units Cyanocobalamin (Vitamin B12) 500 mcg PO DAILY [facility] Last Admin: 09/13/17 07:45 Dose: 500 mcg Docusate Sodium (Colace) 100 mg PO BID [facility] Last Admin: 09/13/17 07:43 Dose: Not Given Enoxaparin Sodium (Lovenox) 40 mg SUBCUT DAILY [facility] Last Admin: 09/13/17 07:46 Dose: 40 mg Ferrous Sulfate (Ferrous Sulfate) 325 mg PO Q2D@0800 [facility] Last Admin: 09/13/17 07:44 Dose: 325 mg Furosemide (Lasix) 40 mg PO BID@0800,1200 [facility] Last Admin: 09/13/17 07:46 Dose: 40 mg Glucosamine Sulfate (Glucosamine Sulfate) 500 mg PO DAILY [facility] Last Admin: 09/13/17 07:48 Dose: 500 mg Insulin Detemir (Levemir) 6 unit SUBCUT BEDTIME [facility] Last Admin: 09/12/17 20:05 Dose: 6 units Magnesium Oxide (Magnesium Oxide) 400 mg PO TID [facility] Last Admin: 09/13/17 07:46 Dose: 400 mg Methylprednisolone Sodium Succinate (Solu-Medrol) 40 mg IVPUSH Q12H [facility] Last Admin: 09/12/17 22:02 Dose: 40 mg Metoprolol Tartrate (Lopressor) 50 mg PO BID [facility] Last Admin: 09/13/17 07:45 Dose: 50 mg Multivitamins/Minerals (Thera M Plus) 1 tab PO DAILY [facility] Last Admin: 09/13/17 07:44 Dose: 1 tab Omeprazole (Omeprazole) 20 mg PO DAILY@0700 [facility] Last Admin: 09/13/17 06:32 Dose: 20 mg Oxybutynin Chloride (Oxybutynin) 5 mg PO BID [facility] Last Admin: 09/13/17 07:45 Dose: 5 mg Potassium Chloride (Klor-Con M20) 20 meq PO DAILY [facility] Last Admin: 09/13/17 07:46 Dose: 20 meq Simvastatin (Zocor) 10 mg PO BEDTIME [facility] Last Admin: 09/12/17 20:03 Dose: 10 mg Sodium Chloride (Saline Flush) 10 ml FLUSH ASDIRECTED PRN PRN Reason: Keep Vein Open Last Admin: 09/12/17 22:03 Dose: 10 ml Discontinued Medications Albuterol (Proventil Neb Soln) 2.5 mg NEB ONETIME ONE Stop: 09/10/17 17:05 Last Admin: 09/10/17 17:15 Dose: 2.5 mg Albuterol/Ipratropium (Duoneb 3.0-0.5 Mg/3 Ml) 3 ml NEB Q4H PRN PRN Reason: dyspnea/wheezing Last Admin: 09/11/17 07:27 Dose: 3 ml Budesonide (Pulmicort) 0.5 mg NEB BIDRT [facility] Last Admin: 09/12/17 07:17 Dose: 0.5 mg Ceftriaxone Sodium (Rocephin) 1 gm IVPUSH DAILY [facility] Last Admin: 09/13/17 07:46 Dose: Not Given Furosemide (Lasix) 40 mg PO BIDDIURETIC [facility] Last Admin: 09/12/17 08:06 Dose: 40 mg Furosemide (Lasix) 80 mg IV ONETIME ONE Stop: 09/11/17 08:01 Last Admin: 09/11/17 07:51 Dose: 80 mg Ciprofloxacin/Dextrose 400 mg/ (Premix) 200 mls @ 200 mls/hr IV ONETIME ONE Stop: 09/10/17 17:15 Last Admin: 09/10/17 19:48 Dose: 200 mls/hr Piperacillin Sod/Tazobactam (Sod 4.5 gm/ Sodium Chloride) 100 mls @ 200 mls/hr IV ONETIME ONE Stop: 09/10/17 16:43 Last Admin: 09/10/17 16:47 Dose: 200 mls/hr Vancomycin HCl 1,250 mg/ (Sodium Chloride) 250 mls @ 200 mls/hr IV ONETIME ONE Stop: 09/10/17 17:28 Last Admin: 09/10/17 17:33 Dose: 200 mls/hr Ciprofloxacin/Dextrose 400 mg/ (Premix) 200 mls @ 200 mls/hr IV ONETIME ONE Stop: 09/10/17 20:59 Last Admin: 09/10/17 19:55 Dose: Not Given Ciprofloxacin/Dextrose 400 mg/ (Premix) 200 mls @ 200 mls/hr IV Q12H [facility] Last Admin: 09/11/17 07:50 Dose: 200 mls/hr Piperacillin Sod/Tazobactam (Sod 3.375 gm/ Sodium Chloride) 100 mls @ 25 mls/ hr IV Q8H [facility] Last Admin: 09/12/17 08:06 Dose: 25 mls/hr Insulin Aspart (Novolog) 3 unit SUBCUT ONETIME ONE Stop: 09/12/17 17:06 Last Admin: 09/12/17 17:33 Dose: 3 units Magnesium Oxide (Magnesium Oxide) 400 mg PO DAILY [facility] Last Admin: 09/12/17 08:06 Dose: 400 mg Methylprednisolone Sodium Succinate (Solu-Medrol) 125 mg IVPUSH ONETIME ONE Stop: 09/10/17 17:05 Last Admin: 09/10/17 17:31 Dose: 125 mg Potassium Chloride (Klor-Con M20) 20 meq PO DAILY [facility] Last Admin: 09/11/17 09:46 Dose: 20 meq Potassium Chloride (Klor-Con M20) 20 meq PO TID [facility] Last Admin: 09/12/17 08:06 Dose: 20 meq Prednisone (Prednisone) 4 mg PO DAILY [facility] Last Admin: 09/12/17 08:06 Dose: 4 mg - Exam Quality Assessment: Supplemental Oxygen, DVT Prophylaxis General: Alert, Oriented, Cooperative, No Acute Distress Lungs: Decreased Breath Sounds, Wheezing (right lower and left lower lung bases) Cardiovascular: Regular Rate, Regular Rhythm GI/Abdominal Exam: Normal Bowel Sounds, Soft, Non-Tender Peripheral Pulses: 2+: Radial (L), Radial (R) Skin: Warm, Dry, Intact, Other (chronic mottling of left foot, no open areas assessed.) Neurological: No New Focal Deficit - Problem List & Annotations (1) CAP (community acquired pneumonia) SNOMED Code(s): 077497477 Code(s): J18.9 - PNEUMONIA, UNSPECIFIED ORGANISM Status: Acute Priority: Medium Current Visit: Yes Qualifiers: Laterality: right Lung location: lower lobe of lung Qualified Code(s): J18.1 - Lobar pneumonia, unspecified organism (2) COPD exacerbation SNOMED Code(s): 980595927 Code(s): J44.1 - CHRONIC OBSTRUCTIVE PULMONARY DISEASE W (ACUTE) EXACERBATION Status: Acute Priority: Medium Current Visit: Yes (3) Respiratory failure with hypoxia SNOMED Code(s): 71517863206929688 Code(s): J96.91 - RESPIRATORY FAILURE, UNSPECIFIED WITH HYPOXIA Status: Acute Priority: High Current Visit: Yes Qualifiers: Chronicity: acute on chronic Qualified Code(s): J96.21 - Acute and chronic respiratory failure with hypoxia (4) Paroxysmal atrial fibrillation SNOMED Code(s): 793078156 Code(s): I48.0 - PAROXYSMAL ATRIAL FIBRILLATION Status: Chronic Priority : Low Current Visit: No (5) Pre-diabetes SNOMED Code(s): 820843195 Code(s): R73.09 - OTHER ABNORMAL GLUCOSE Status: Chronic Current Visit: No (6) CHF (congestive heart failure) SNOMED Code(s): 40852134 Code(s): I50.9 - HEART FAILURE, UNSPECIFIED Status: Chronic Current Visit : No Qualifiers: Heart failure type: diastolic Heart failure chronicity: chronic Qualified Code(s): I50.32 - Chronic diastolic (congestive) heart failure (7) History of non-ST elevation myocardial infarction (NSTEMI) SNOMED Code(s): 561054288 Code(s): I25.2 - OLD MYOCARDIAL INFARCTION Status: Chronic Priority: Low Current Visit: No - Problem List Review Problem List Initiated/Reviewed/Updated: Yes - My Orders Last 24 Hours: My Active Orders 09/13/17 09:00 cefTRIAXone [Rocephin] 1 gm IM DAILY - Plan Plan:: Hospital day #4 for a 77 yo female with a past medical history of COPD, hypoxic respiratory failure secondary to COPD, AFib, chronic CHF, and prediabetes admitted on 09/10/2017 with a diagnosis of RLL Pneumonia, severe COPD exacerbation secondary to pneumonia, chronic hypoxic respiratory failure due to pneumonia and COPD, chronic AFib, prediabetes, and chronic diastolic HF. Will change Rocephin to 1gram IM as the patient does not have IV access any more. Continue with PO Azithromycin. Continue with I.S. and flutter valve as this seems to be helping. Continue DuoNebs as ordered. Would recommend increasing activity as tolerated. No change with SoluMedrol as her blood sugars are remaining stable, but will continue with Accuchecks and monitor. Will need to change IV SoluMedrol to PO Prednisone due to no IV access. SoluMedrol to Prednisone equivalent if 50mg, but will decrease to 40mg PO for dosing reasons. Patient will continue on acute cares at this point. I do not anticipate a discharge home for another few days.
[2017-09-13] MEDS ORDERED: cefTRIAXone 1 GM, Lidocaine 1% 2.1 ML IM SCH ×2 (10:30)
[2017-09-13] MEDS: cefTRIAXone 1 GM Vial IM SCH (10:43)
[2017-09-13] MEDS: predniSONE 20 MG Tab PO SCH ×2 (10:44→20:26)
[2017-09-13] MEDS ORDERED: Insulin Aspart 100 Units/ML 3 ML Pen SUBCUT ONE (17:14)
[2017-09-13] MEDS: Simvastatin 10 MG Tab PO SCH (20:25)
[2017-09-13] MEDS: Insulin Detemir 100 Units/ML 3 ML Pen SUBCUT SCH (20:26)
[2017-09-14] MEDS: Omeprazole 20 MG Cap.CR PO SCH (06:25)
[2017-09-14] MEDS: Arformoterol 15 MCG/2 ML Neb Soln NEB SCH ×2 (07:11→19:41)
[2017-09-14] MEDS: Albuterol/Ipratropium 3.0-0.5 MG/3 ML Neb Soln NEB SCH ×4 (07:11→19:41)
--- NOTE | 2017-09-14 08:11 | PCM.PN ---
- General Info Date of Service: 09/14/17 Admission Dx/Problem (Free Text): 1. RLL Pneumonia, gram positive cocci in sputum 2. Severe COPD exacerbation due to pneumonia 3. Chronic hypoxic respiratory failure duet to pneumonia and COPD 4. History of Paroxysmal Atrial Fib 5. Prediabetes 6. Chronic diastolic heart failure 7. Hx of Non-STEMI Subjective Update: Patient states her breathing has improved from yesterday. She has started to expectorate more sputum this AM after her breathing treatment. She states she did not sleep well last night due to excess noise. No issues with BM's or urination. No chest pain. Still feels SOB, but this is chronic. No new symptoms. Functional Status: Reports: Pain Controlled, Tolerating Diet, Urinating Pain Score: 0 - Review of Systems General: Reports: Weakness. Denies: Fever, Chills Pulmonary: Reports: Shortness of Breath, Cough, Sputum. Denies: Pleuritic Chest Pain, Wheezing Cardiovascular: Denies: Chest Pain, Palpitations Gastrointestinal: Denies: Abdominal Pain, Nausea, Vomiting Skin: Reports: Bruising (bilateral arms) Neurological: Reports: No Symptoms. Denies: Dizziness, Headache - Patient Data Vitals - Most Recent: Last Vital Signs Temp 36.8 C 09/14/17 06:00 Pulse 82 09/14/17 06:00 Resp 20 09/14/17 06:00 BP 132/70 09/14/17 06:00 Pulse Ox 97 09/14/17 07:15 Weight - Most Recent: 76.022 kg I&O - Last 24 Hours: Intake & Output 09/13/17 09/14/17 09/14/17 22:59 06:59 14:59 Intake Total 360 650 Output Total 100 Balance 260 650 Lab Results Last 24 Hours: Laboratory Results - last 24 hr 09/13/17 09/13/17 09/13/17 Range/Units 07:18 07:18 11:35 Neutrophils % (Manual) 82 H (50-80) % Band Neutrophils % 4 (0-6) % Lymphocytes % (Manual) 7 L (25-50) % Monocytes % (Manual) 4 (2-11) % Metamyelocytes % 3 H (0) % Hypersegmented Neuts Rare H Vacuolated Monocytes Rare Platelet Estimate Adequate Giant Platelets Rare H Polychromasia 1+ slight H Anisocytosis Rare Macrocytosis 1+ slight H Spherocytes 1+ slight H Ovalocytes 1+ slight H Sodium 136 (136-145) mmol/L Potassium 4.0 (3.5-5.1) mmol/L Chloride 96 L (98-107) mmol/L Carbon Dioxide 38 H (21-32) mmol/L BUN 15 (7-18) mg/dL Creatinine 0.9 (0.55-1.02) mg/dL Est Cr Clr Drug Dosing 45.61 mL/min Estimated GFR (MDRD) > 60 Glucose 126 H (74-106) mg/dL POC Glucose 98 (74-106) mg/dL Calcium 8.6 (8.5-10.1) mg/dL 09/13/17 09/13/17 09/14/17 Range/Units 17:05 20:33 06:24 Neutrophils % (Manual) (50-80) % Band Neutrophils % (0-6) % Lymphocytes % (Manual) (25-50) % Monocytes % (Manual) (2-11) % Metamyelocytes % (0) % Hypersegmented Neuts Vacuolated Monocytes Platelet Estimate Giant Platelets Polychromasia Anisocytosis Macrocytosis Spherocytes Ovalocytes Sodium (136-145) mmol/L Potassium (3.5-5.1) mmol/L Chloride (98-107) mmol/L Carbon Dioxide (21-32) mmol/L BUN (7-18) mg/dL Creatinine (0.55-1.02) mg/dL Est Cr Clr Drug Dosing mL/min Estimated GFR (MDRD) Glucose (74-106) mg/dL POC Glucose 305 H 249 H 145 H (74-106) mg/dL Calcium (8.5-10.1) mg/dL Med Orders - Current: Current Medications Acetaminophen (Tylenol) 650 mg PO Q4H PRN PRN Reason: Pain (Mild 1-3)/fever Albuterol (Proventil Neb Soln) 2.5 mg NEB Q4HRRT PRN PRN Reason: Shortness of Breath Albuterol/Ipratropium (Duoneb 3.0-0.5 Mg/3 Ml) 3 ml NEB QIDRT [facility] Last Admin: 09/14/17 07:11 Dose: 3 ml Arformoterol Tartrate (Brovana) 15 mcg NEB BIDRT [facility] Last Admin: 02/18/18 07:11 Dose: 15 mcg Ascorbic Acid (Vitamin C) 500 mg PO DAILY [facility] Last Admin: 09/13/17 07:46 Dose: 500 mg Aspirin (Aspirin) 81 mg PO DAILY [facility] Last Admin: 09/13/17 07:43 Dose: 81 mg Azithromycin (Zithromax) 500 mg PO DAILY [facility] Stop: 09/16/17 08:01 Last Admin: 09/13/17 07:46 Dose: 500 mg Calcium Carbonate (Calcium Carbonate/Vitamin D 1250 Mg-200 Unit) 1 tab PO DAILY [facility] Last Admin: 09/13/17 07:43 Dose: 1 tab Ceftriaxone Sodium (Rocephin) 1 gm IM DAILY [facility] Last Admin: 09/13/17 10:43 Dose: 1 gm Cholecalciferol (Vitamin D3) 2,000 units PO DAILY [facility] Last Admin: 09/13/17 07:44 Dose: 2,000 units Cyanocobalamin (Vitamin B12) 500 mcg PO DAILY [facility] Last Admin: 09/13/17 07:45 Dose: 500 mcg Docusate Sodium (Colace) 100 mg PO BID [facility] Last Admin: 09/13/17 20:26 Dose: Not Given Enoxaparin Sodium (Lovenox) 40 mg SUBCUT DAILY [facility] Last Admin: 09/13/17 07:46 Dose: 40 mg Ferrous Sulfate (Ferrous Sulfate) 325 mg PO Q2D@0800 [facility] Last Admin: 09/13/17 07:44 Dose: 325 mg Furosemide (Lasix) 40 mg PO BID@0800,1200 [facility] Last Admin: 09/13/17 11:47 Dose: 40 mg Glucosamine Sulfate (Glucosamine Sulfate) 500 mg PO DAILY [facility] Last Admin: 09/13/17 07:48 Dose: 500 mg Insulin Detemir (Levemir) 6 unit SUBCUT BEDTIME [facility] Last Admin: 09/13/17 20:26 Dose: 6 units Magnesium Oxide (Magnesium Oxide) 400 mg PO TID [facility] Last Admin: 09/13/17 20:26 Dose: 400 mg Metoprolol Tartrate (Lopressor) 50 mg PO BID [facility] Last Admin: 09/13/17 20:25 Dose: 50 mg Multivitamins/Minerals (Thera M Plus) 1 tab PO DAILY [facility] Last Admin: 09/13/17 07:44 Dose: 1 tab Omeprazole (Omeprazole) 20 mg PO DAILY@0700 [facility] Last Admin: 09/14/17 06:25 Dose: 20 mg Oxybutynin Chloride (Oxybutynin) 5 mg PO BID [facility] Last Admin: 09/13/17 20:25 Dose: 5 mg Potassium Chloride (Klor-Con M20) 20 meq PO DAILY [facility] Last Admin: 09/13/17 07:46 Dose: 20 meq Prednisone (Prednisone) 20 mg PO BID FAITH Simvastatin (Zocor) 10 mg PO BEDTIME [facility] Last Admin: 09/13/17 20:25 Dose: 10 mg Sodium Chloride (Saline Flush) 10 ml FLUSH ASDIRECTED PRN PRN Reason: Keep Vein Open Last Admin: 09/12/17 22:03 Dose: 10 ml Discontinued Medications Albuterol (Proventil Neb Soln) 2.5 mg NEB ONETIME ONE Stop: 09/10/17 17:05 Last Admin: 09/10/17 17:15 Dose: 2.5 mg Albuterol/Ipratropium (Duoneb 3.0-0.5 Mg/3 Ml) 3 ml NEB Q4H PRN PRN Reason: dyspnea/wheezing Last Admin: 09/11/17 07:27 Dose: 3 ml Budesonide (Pulmicort) 0.5 mg NEB BIDRT [facility] Last Admin: 09/12/17 07:17 Dose: 0.5 mg Ceftriaxone Sodium (Rocephin) 1 gm IVPUSH DAILY [facility] Last Admin: 09/13/17 07:46 Dose: Not Given Ceftriaxone Sodium (Rocephin) 1 gm IM DAILY [facility] Last Admin: 09/13/17 11:04 Dose: Not Given Ceftriaxone Sodium 1 gm/ (Lidocaine HCl 2.1 ml) 0 gm IM DAILY [facility] Furosemide (Lasix) 40 mg PO BIDDIURETIC [facility] Last Admin: 09/12/17 08:06 Dose: 40 mg Furosemide (Lasix) 80 mg IV ONETIME ONE Stop: 09/11/17 08:01 Last Admin: 09/11/17 07:51 Dose: 80 mg Ciprofloxacin/Dextrose 400 mg/ (Premix) 200 mls @ 200 mls/hr IV ONETIME ONE Stop: 09/10/17 17:15 Last Admin: 09/10/17 19:48 Dose: 200 mls/hr Piperacillin Sod/Tazobactam (Sod 4.5 gm/ Sodium Chloride) 100 mls @ 200 mls/hr IV ONETIME ONE Stop: 09/10/17 16:43 Last Admin: 09/10/17 16:47 Dose: 200 mls/hr Vancomycin HCl 1,250 mg/ (Sodium Chloride) 250 mls @ 200 mls/hr IV ONETIME ONE Stop: 09/10/17 17:28 Last Admin: 09/10/17 17:33 Dose: 200 mls/hr Ciprofloxacin/Dextrose 400 mg/ (Premix) 200 mls @ 200 mls/hr IV ONETIME ONE Stop: 09/10/17 20:59 Last Admin: 09/10/17 19:55 Dose: Not Given Ciprofloxacin/Dextrose 400 mg/ (Premix) 200 mls @ 200 mls/hr IV Q12H [facility] Last Admin: 09/11/17 07:50 Dose: 200 mls/hr Piperacillin Sod/Tazobactam (Sod 3.375 gm/ Sodium Chloride) 100 mls @ 25 mls/ hr IV Q8H [facility] Last Admin: 09/12/17 08:06 Dose: 25 mls/hr Insulin Aspart (Novolog) 3 unit SUBCUT ONETIME ONE Stop: 09/12/17 17:06 Last Admin: 09/12/17 17:33 Dose: 3 units Insulin Aspart (Novolog) 5 unit SUBCUT ONETIME ONE Stop: 09/13/17 17:15 Last Admin: 09/13/17 17:19 Dose: 5 units Lidocaine HCl (Xylocaine-Mpf 1%) 2.1 ml INJECT ONETIME ONE Stop: 09/13/17 10:16 Last Admin: 09/13/17 10:44 Dose: 2.1 ml Magnesium Oxide (Magnesium Oxide) 400 mg PO DAILY [facility] Last Admin: 09/12/17 08:06 Dose: 400 mg Methylprednisolone Sodium Succinate (Solu-Medrol) 125 mg IVPUSH ONETIME ONE Stop: 09/10/17 17:05 Last Admin: 09/10/17 17:31 Dose: 125 mg Methylprednisolone Sodium Succinate (Solu-Medrol) 40 mg IVPUSH Q12H [facility] Last Admin: 09/12/17 22:02 Dose: 40 mg Potassium Chloride (Klor-Con M20) 20 meq PO DAILY [facility] Last Admin: 09/11/17 09:46 Dose: 20 meq Potassium Chloride (Klor-Con M20) 20 meq PO TID [facility] Last Admin: 09/12/17 08:06 Dose: 20 meq Prednisone (Prednisone) 4 mg PO DAILY [facility] Last Admin: 09/12/17 08:06 Dose: 4 mg Prednisone (Prednisone) 40 mg PO BID [facility] Last Admin: 09/13/17 20:26 Dose: 40 mg - Exam Quality Assessment: Supplemental Oxygen, Skin Breakdown General: Alert, Oriented, Cooperative, No Acute Distress Lungs: Decreased Breath Sounds, Rhonchi Cardiovascular: Regular Rate, Regular Rhythm GI/Abdominal Exam: Normal Bowel Sounds, Soft, Non-Tender Peripheral Pulses: 2+: Radial (L), Radial (R) Skin: Warm, Dry, Intact, Ecchymosis (bilateral arms) Neurological: No New Focal Deficit - Problem List & Annotations (1) CAP (community acquired pneumonia) SNOMED Code(s): 596191064 Code(s): J18.9 - PNEUMONIA, UNSPECIFIED ORGANISM Status: Acute Priority: Medium Current Visit: Yes Qualifiers: Laterality: right Lung location: lower lobe of lung Qualified Code(s): J18.1 - Lobar pneumonia, unspecified organism (2) COPD exacerbation SNOMED Code(s): 561528733 Code(s): J44.1 - CHRONIC OBSTRUCTIVE PULMONARY DISEASE W (ACUTE) EXACERBATION Status: Acute Priority: Medium Current Visit: Yes (3) Respiratory failure with hypoxia SNOMED Code(s): 10926219903618259 Code(s): J96.91 - RESPIRATORY FAILURE, UNSPECIFIED WITH HYPOXIA Status: Acute Priority: High Current Visit: Yes Qualifiers: Chronicity: acute on chronic Qualified Code(s): J96.21 - Acute and chronic respiratory failure with hypoxia (4) Paroxysmal atrial fibrillation SNOMED Code(s): 661915462 Code(s): I48.0 - PAROXYSMAL ATRIAL FIBRILLATION Status: Chronic Priority : Low Current Visit: No (5) Pre-diabetes SNOMED Code(s): 402876892 Code(s): R73.09 - OTHER ABNORMAL GLUCOSE Status: Chronic Current Visit: No (6) CHF (congestive heart failure) SNOMED Code(s): 42173413 Code(s): I50.9 - HEART FAILURE, UNSPECIFIED Status: Chronic Current Visit : No Qualifiers: Heart failure type: diastolic Heart failure chronicity: chronic Qualified Code(s): I50.32 - Chronic diastolic (congestive) heart failure (7) History of non-ST elevation myocardial infarction (NSTEMI) SNOMED Code(s): 057446751 Code(s): I25.2 - OLD MYOCARDIAL INFARCTION Status: Chronic Priority: Low Current Visit: No - Problem List Review Problem List Initiated/Reviewed/Updated: Yes - My Orders Last 24 Hours: My Active Orders 09/13/17 10:45 cefTRIAXone [Rocephin] 1 gm IM DAILY 09/14/17 06:50 BASIC METABOLIC PANEL,BMP [CHEM] Routine CBC WITH AUTO DIFF [HEME] Routine MAGNESIUM [CHEM] Routine 09/14/17 08:15 predniSONE 20 mg PO BID - Plan Plan:: Hospital day #5 for a 77 yo female with a past medical history of COPD, hypoxic respiratory failure secondary to COPD, AFib, chronic CHF, and prediabetes admitted on 09/10/2017 with a diagnosis of RLL Pneumonia, severe COPD exacerbation secondary to pneumonia, chronic hypoxic respiratory failure due to pneumonia and COPD, chronic AFib, prediabetes, and chronic diastolic HF. Will decrease prednison to 20mg BID as patient seems to be improving some and also to help with lower blood sugars. Otherwise, no other changes. Will check AM labs today. Continue to encourage activity as tolerated. Continue with acute cares for now.
[2017-09-14 08:25] LABS: CHLORIDE,CL 94 mmol/L (98-107); SODIUM,NA 134 mmol/L (136-145)
[2017-09-14] MEDS: cefTRIAXone 1 GM Vial IM SCH (09:02)
[2017-09-14] MEDS: Furosemide 40 MG Tab PO SCH ×2 (09:02→11:23)
[2017-09-14] MEDS: Multivitamins with Iron/Calcium/Folic Acid/Minerals Tab PO SCH (09:03)
[2017-09-14] MEDS: Ascorbic Acid 500 MG Tab PO SCH (09:03)
[2017-09-14] MEDS: Calcium Carbonate/Vitamin D3 1250 MG-200 Unit Tab PO SCH (09:03)
[2017-09-14] MEDS: predniSONE 20 MG Tab PO SCH ×3 (09:03→19:40)
[2017-09-14] MEDS: Glucosamine 500 MG Cap PO SCH (09:03)
[2017-09-14] MEDS: Cholecalciferol (Vitamin D3) 1,000 Unit Tab PO SCH (09:03)
[2017-09-14] MEDS: Azithromycin 250 MG Tab PO SCH (09:03)
[2017-09-14] MEDS: Magnesium Oxide 400 MG Tab PO SCH ×3 (09:03→19:40)
[2017-09-14] MEDS: Potassium Chloride 20 MEQ Tab.ER PO SCH (09:03)
[2017-09-14] MEDS: Aspirin 81 MG Tab.Chew PO SCH (09:03)
[2017-09-14] MEDS: Enoxaparin 40 MG/0.4 ML Syringe SUBCUT SCH (09:04)
[2017-09-14] MEDS: Metoprolol Tartrate 50 MG Tab PO SCH ×2 (09:04→19:40)
[2017-09-14] MEDS: Docusate Sodium 100 MG Cap PO SCH ×2 (09:04→19:42)
[2017-09-14] MEDS: Cyanocobalamin (Vitamin B12) 250 MCG Tab PO SCH (09:04)
[2017-09-14] MEDS: Oxybutynin 5 MG Tab PO SCH ×2 (09:04→19:40)
[2017-09-14] MEDS: Simvastatin 10 MG Tab PO SCH (19:40)
[2017-09-14] MEDS: Insulin Detemir 100 Units/ML 3 ML Pen SUBCUT SCH (19:41)
[2017-09-15 06:05] VITALS: BP 153/77
[2017-09-15] MEDS: Omeprazole 20 MG Cap.CR PO SCH (06:06)
[2017-09-15 06:58] LABS: CHLORIDE,CL 95 mmol/L (98-107); SODIUM,NA 135 mmol/L (136-145)
[2017-09-15] MEDS: Albuterol/Ipratropium 3.0-0.5 MG/3 ML Neb Soln NEB SCH ×2 (07:07→10:56)
[2017-09-15] MEDS: Arformoterol 15 MCG/2 ML Neb Soln NEB SCH (07:07)
[2017-09-15] MEDS: Enoxaparin 40 MG/0.4 ML Syringe SUBCUT SCH (08:03)
[2017-09-15] MEDS: Furosemide 40 MG Tab PO SCH (08:04)
[2017-09-15] MEDS: Magnesium Oxide 400 MG Tab PO SCH (08:04)
[2017-09-15] MEDS: Glucosamine 500 MG Cap PO SCH (08:05)
[2017-09-15] MEDS: Oxybutynin 5 MG Tab PO SCH (08:05)
[2017-09-15] MEDS: Ascorbic Acid 500 MG Tab PO SCH (08:05)
[2017-09-15] MEDS: Cholecalciferol (Vitamin D3) 1,000 Unit Tab PO SCH (08:05)
[2017-09-15] MEDS: Multivitamins with Iron/Calcium/Folic Acid/Minerals Tab PO SCH (08:05)
[2017-09-15] MEDS: Metoprolol Tartrate 50 MG Tab PO SCH (08:05)
[2017-09-15] MEDS: Docusate Sodium 100 MG Cap PO SCH (08:05)
[2017-09-15] MEDS: Aspirin 81 MG Tab.Chew PO SCH (08:05)
[2017-09-15] MEDS: Potassium Chloride 20 MEQ Tab.ER PO SCH (08:06)
[2017-09-15] MEDS: predniSONE 20 MG Tab PO SCH (08:06)
[2017-09-15] MEDS: Calcium Carbonate/Vitamin D3 1250 MG-200 Unit Tab PO SCH (08:06)
[2017-09-15] MEDS: Ferrous Sulfate 325 MG Tab PO SCH (08:06)
[2017-09-15] MEDS: Azithromycin 250 MG Tab PO SCH (08:06)
[2017-09-15] MEDS: Cyanocobalamin (Vitamin B12) 250 MCG Tab PO SCH (08:12)
[2017-09-15] MEDS: cefTRIAXone 1 GM Vial IM SCH (08:14)
--- NOTE | 2017-09-15 09:19 | PCM.DCSUM1 ---
Discharge Summary - Hospital Course Brief History: Mrs. Ortega is a 77 yo female who was admitted with community acquired pneumonia and COPD exacerbation after presenting to the ER with cough and shortness of breath. - Discharge Data Discharge Date: 09/15/17 Discharge Disposition: DC/Tfer W/I Hosp To Swing 61 Condition: Good - Discharge Diagnosis/Problem(s) (1) CAP (community acquired pneumonia) SNOMED Code(s): 537945312 ICD Code: J18.9 - PNEUMONIA, UNSPECIFIED ORGANISM Status: Acute Priority : Medium Current Visit: Yes Problem Details: She was diagnosed with pneumonia based on symptoms, elevated WBC, and chest x-ray findings. She was initially treated with zosyn and then transitioned to ceftriaxone and azithromycin on hospital day #2. She has had slow improvement in all of her symptoms. Her white count was improving but then increased and has stabilized; suspect some of this is related to the steroids given the fact that her symptoms are improving. Her sputum culture showed normal deepa and her blood cultures have been negative. She will transition to azithromycin only today as she has received 6 days of parenteral antibiotics. Qualifiers: Laterality: right Lung location: lower lobe of lung Qualified Code(s): J18.1 - Lobar pneumonia, unspecified organism (2) COPD exacerbation SNOMED Code(s): 767670133 ICD Code: J44.1 - CHRONIC OBSTRUCTIVE PULMONARY DISEASE W (ACUTE) EXACERBATION Status: Acute Priority: Medium Current Visit: Yes Problem Details: She also had symptoms and exam findings of a COPD exacerbation, which has been treated with prednisone. She has also been encouraged to use her Aerobika for pulmonary hygiene as well. She has tolerated dose reductions in her prednisone without any issue. (3) Respiratory failure with hypoxia SNOMED Code(s): 40034097580705541 ICD Code: J96.91 - RESPIRATORY FAILURE, UNSPECIFIED WITH HYPOXIA Status: Chronic Priority: High Current Visit: Yes Problem Details: She has never required more than her baseline oxygen requirements that she is on at home. She continues to maintain appropriate saturations on the 4L via nasal cannula. Qualifiers: Chronicity: acute on chronic Qualified Code(s): J96.21 - Acute and chronic respiratory failure with hypoxia (4) CHF (congestive heart failure) SNOMED Code(s): 39367781 ICD Code: I50.9 - HEART FAILURE, UNSPECIFIED Status: Chronic Current Visit: No Problem Details: She has had no acute CHF symptoms and her home lasix has been continued. Qualifiers: Heart failure type: diastolic Heart failure chronicity: chronic Qualified Code(s): I50.32 - Chronic diastolic (congestive) heart failure (5) Chronic anemia SNOMED Code(s): 856531822 ICD Code: D64.9 - ANEMIA, UNSPECIFIED Status: Chronic Current Visit: No Problem Details: Hemoglobin has been monitored and has remained stable. (6) PMR (polymyalgia rheumatica) SNOMED Code(s): 36171485 ICD Code: M35.3 - POLYMYALGIA RHEUMATICA Status: Chronic Current Visit: No Problem Details: She is on higher than usual doses of prednisone but we will keep this diagnosis in mind as her dose is tapered. (7) Pre-diabetes SNOMED Code(s): 613569159 ICD Code: R73.09 - OTHER ABNORMAL GLUCOSE Status: Chronic Current Visit: No Problem Details: Her glucoses have been up at times, which is felt to be related to the prednisone. She got 1 dose of insulin over the weekend but otherwise has not required intervention. Will continue to monitor this. - Patient Summary/Data Operative Procedure(s) Performed: none Complications: none Consults: none Labs Pending at D/C: none Recommended Follow-up Testing/Procedures: none Planned Operative Procedure(s) after DC: none Hospital Course: See details under problems above. She is improving, albeit slowly. She is on her home oxygen amounts and will transition completely to PO medications today. Therefore, there is no indication for her to remain on acute status. She is fairly deconditioned from her illness and hospitalization; therefore, she will require some rehabilitation before returning home. PT agrees that she would benefit from this and she will transition to swing bed today. - Patient Instructions Diet: Usual Diet as Tolerated Activity: As Tolerated - Discharge Plan Home Medications: Home Meds Budesonide/Formoterol [Symbicort 160-4.5 MCG] 2 puff INH BID 12/15/13 [History] Calcium Citrate/Vitamin D3 [Calcium Citrate with D Tablet] 1 tab PO DAILY [History] Cholecalciferol (Vitamin D3) [Vitamin D3] 2,000 unit PO DAILY 12/15/13 [History] Glucosamine/D3/Boswellia Tiffanie [Glucosamine Complex Tablet] 1 tab PO DAILY 12/15 [History] Multivitamin [Multivitamins] 1 cap PO DAILY 12/15/13 [History] Ascorbate Calcium [Vitamin C] 500 mg PO DAILY 01/25/14 [History] Albuterol [Proventil Neb Soln] 2.5 mg NEB Q4H PRN 11/28/15 [History] Albuterol [Proventil Neb Soln] 2.5 mg NEB QID 11/28/15 [History] Aspirin 81 mg PO DAILY 11/28/15 [History] Cyanocobalamin (Vitamin B-12) [B-12] 500 mcg PO DAILY 11/28/15 [History] Furosemide 40 mg PO BID@0800,1200 11/28/15 [History] Magnesium Oxide [Magnesium] 400 mg PO DAILY 11/28/15 [History] Omeprazole 20 mg PO DAILY 11/28/15 [History] Oxybutynin 5 mg PO BID 11/28/15 [History] Simvastatin [Zocor] 10 mg PO BEDTIME 11/28/15 [History] Docusate Sodium [Colace] 100 mg PO BID 02/19/16 [History] Ferrous Gluconate 324 mg PO Q2D 02/19/16 [History] Potassium Chloride [Klor-Con M20] 20 meq PO DAILY 02/19/16 [History] Acetaminophen [Tylenol] 650 mg PO Q4H PRN #0 tablet 02/25/16 [Rx] Metoprolol Tartrate [Lopressor] 50 mg PO BID tablet 02/25/16 [Rx] Tiotropium [Spiriva Handihaler] 1 cap INH DAILY 02/27/16 [History] predniSONE 4 mg PO DAILY 09/10/17 [History] Acetaminophen [Tylenol] 650 mg PO Q4H PRN tablet 09/15/17 [Rx] Albuterol [IJD: Albuterol] 2.5 mg NEB Q4HRRT PRN nebule 09/15/17 [Rx] Albuterol/Ipratropium [DuoNeb 3.0-0.5 MG/3 ML] 3 ml NEB QIDRT neb 09/15/17 [Rx] Arformoterol [Brovana] 15 mcg NEB BIDRT neb 09/15/17 [Rx] Enoxaparin [Lovenox] 40 mg SUBCUT DAILY syringe 09/15/17 [Rx] Prednisone [IJD: predniSONE] 20 mg PO BID tablet 09/15/17 [Rx] Forms: ED Department Discharge Referrals: Francine Kwon DO [Primary Care Provider] - - Discharge Summary/Plan Comment DC Time >30 min.: No - General Info Date of Service: 09/15/17 Subjective Update: Feels about 50% better than at admission. Still short of breath but now able to complete full sentences. Has not gotten up and around much. Cough is improving. No fever or chills. Appetite has been good. - Review of Systems General: Reports: No Symptoms HEENT: Reports: No Symptoms Pulmonary: Reports: Shortness of Breath, Cough Cardiovascular: Reports: No Symptoms Gastrointestinal: Reports: No Symptoms Genitourinary: Reports: No Symptoms Musculoskeletal: Reports: No Symptoms Skin: Reports: No Symptoms Neurological: Reports: No Symptoms - Patient Data Vitals - Most Recent: Last Vital Signs Temp 36.5 C 09/15/17 05:38 Pulse 80 09/15/17 08:05 Resp 20 09/15/17 05:38 BP 153/77 H 09/15/17 08:05 Pulse Ox 98 09/15/17 07:12 Weight - Most Recent: 76.022 kg I&O - Last 24 hours: Intake & Output 09/14/17 09/15/17 09/15/17 22:59 06:59 14:59 Intake Total 570 600 240 Balance 570 600 240 Lab Results - Last 24 hrs: Laboratory Results - last 24 hr 09/14/17 09/14/17 09/14/17 Range/Units 08:03 11:22 16:55 WBC (4.0-10.0) x10^3/uL RBC (4.00-5.50) x10^6/uL Hgb (12.0-16.0) g/dL Hct (33.0-47.0) % MCV (78.0-93.0) fL MCH (26.0-32.0) pg MCHC (32.0-36.0) g/dL RDW Coeff of Ty (10.0-15.0) % Plt Count (130-400) x10^3/uL Add Manual Diff Neutrophils % (Manual) 83 H (50-80) % Band Neutrophils % 1 (0-6) % Lymphocytes % (Manual) 4 L (25-50) % Monocytes % (Manual) 8 (2-11) % Metamyelocytes % 1 H (0) % Myelocytes % 2 H (0) % Blast Cells % 1 H (0) % Hypersegmented Neuts Rare H Vacuolated Monocytes Rare Toxic Granulation 1+ slight H Platelet Estimate Increased H Polychromasia 1+ slight H Anisocytosis 1+ slight H Macrocytosis 1+ slight H Spherocytes Rare Ovalocytes 1+ slight H Sodium (136-145) mmol/L Potassium (3.5-5.1) mmol/L Chloride (98-107) mmol/L Carbon Dioxide (21-32) mmol/L BUN (7-18) mg/dL Creatinine (0.55-1.02) mg/dL Est Cr Clr Drug Dosing mL/min Estimated GFR (MDRD) Glucose (74-106) mg/dL POC Glucose 193 H 234 H (74-106) mg/dL Calcium (8.5-10.1) mg/dL Slides for Path Review Yes 09/14/17 09/15/17 09/15/17 Range/Units 19:52 06:07 06:11 WBC 15.2 H (4.0-10.0) x10^3/uL RBC 3.30 L (4.00-5.50) x10^6/uL Hgb 10.1 L (12.0-16.0) g/dL Hct 31.9 L (33.0-47.0) % MCV 96.7 H (78.0-93.0) fL MCH 30.6 (26.0-32.0) pg MCHC 31.7 L (32.0-36.0) g/dL RDW Coeff of Ty 14.9 (10.0-15.0) % Plt Count 466 H (130-400) x10^3/uL Add Manual Diff Yes Neutrophils % (Manual) 87 H (50-80) % Band Neutrophils % 3 (0-6) % Lymphocytes % (Manual) 5 L (25-50) % Monocytes % (Manual) 1 L (2-11) % Metamyelocytes % 2 H (0) % Myelocytes % (0) % Blast Cells % 2 H (0) % Hypersegmented Neuts Vacuolated Monocytes Toxic Granulation Platelet Estimate Adequate Polychromasia Anisocytosis 1+ slight H Macrocytosis 1+ slight H Spherocytes 1+ slight H Ovalocytes Sodium (136-145) mmol/L Potassium (3.5-5.1) mmol/L Chloride (98-107) mmol/L Carbon Dioxide (21-32) mmol/L BUN (7-18) mg/dL Creatinine (0.55-1.02) mg/dL Est Cr Clr Drug Dosing mL/min Estimated GFR (MDRD) Glucose (74-106) mg/dL POC Glucose 193 H 137 H (74-106) mg/dL Calcium (8.5-10.1) mg/dL Slides for Path Review 09/15/17 Range/Units 06:11 WBC (4.0-10.0) x10^3/uL RBC (4.00-5.50) x10^6/uL Hgb (12.0-16.0) g/dL Hct (33.0-47.0) % MCV (78.0-93.0) fL MCH (26.0-32.0) pg MCHC (32.0-36.0) g/dL RDW Coeff of Ty (10.0-15.0) % Plt Count (130-400) x10^3/uL Add Manual Diff Neutrophils % (Manual) (50-80) % Band Neutrophils % (0-6) % Lymphocytes % (Manual) (25-50) % Monocytes % (Manual) (2-11) % Metamyelocytes % (0) % Myelocytes % (0) % Blast Cells % (0) % Hypersegmented Neuts Vacuolated Monocytes Toxic Granulation Platelet Estimate Polychromasia Anisocytosis Macrocytosis Spherocytes Ovalocytes Sodium 135 L (136-145) mmol/L Potassium 4.1 (3.5-5.1) mmol/L Chloride 95 L (98-107) mmol/L Carbon Dioxide 38 H (21-32) mmol/L BUN 18 (7-18) mg/dL Creatinine 0.9 (0.55-1.02) mg/dL Est Cr Clr Drug Dosing 45.61 mL/min Estimated GFR (MDRD) > 60 Glucose 135 H (74-106) mg/dL POC Glucose (74-106) mg/dL Calcium 8.8 (8.5-10.1) mg/dL Slides for Path Review Med Orders - Current: Current Medications Acetaminophen (Tylenol) 650 mg PO Q4H PRN PRN Reason: Pain (Mild 1-3)/fever Last Admin: 09/14/17 20:10 Dose: 650 mg Albuterol (Proventil Neb Soln) 2.5 mg NEB Q4HRRT PRN PRN Reason: Shortness of Breath Albuterol/Ipratropium (Duoneb 3.0-0.5 Mg/3 Ml) 3 ml NEB QIDRT [facility] Last Admin: 09/15/17 07:07 Dose: 3 ml Arformoterol Tartrate (Brovana) 15 mcg NEB BIDRT [facility] Last Admin: 09/15/17 07:07 Dose: 15 mcg Ascorbic Acid (Vitamin C) 500 mg PO DAILY [facility] Last Admin: 09/15/17 08:05 Dose: 500 mg Aspirin (Aspirin) 81 mg PO DAILY [facility] Last Admin: 09/15/17 08:05 Dose: 81 mg Azithromycin (Zithromax) 500 mg PO DAILY [facility] Stop: 09/16/17 08:01 Last Admin: 09/15/17 08:06 Dose: 500 mg Calcium Carbonate (Calcium Carbonate/Vitamin D 1250 Mg-200 Unit) 1 tab PO DAILY [facility] Last Admin: 09/15/17 08:06 Dose: 1 tab Ceftriaxone Sodium (Rocephin) 1 gm IM DAILY [facility] Last Admin: 09/15/17 08:14 Dose: Not Given Cholecalciferol (Vitamin D3) 2,000 units PO DAILY [facility] Last Admin: 09/15/17 08:05 Dose: 2,000 units Cyanocobalamin (Vitamin B12) 500 mcg PO DAILY [facility] Last Admin: 09/15/17 08:12 Dose: 500 mcg Docusate Sodium (Colace) 100 mg PO BID [facility] Last Admin: 09/15/17 08:05 Dose: 100 mg Enoxaparin Sodium (Lovenox) 40 mg SUBCUT DAILY [facility] Last Admin: 09/15/17 08:03 Dose: 40 mg Ferrous Sulfate (Ferrous Sulfate) 325 mg PO Q2D@0800 [facility] Last Admin: 09/15/17 08:06 Dose: 325 mg Furosemide (Lasix) 40 mg PO BID@0800,1200 [facility] Last Admin: 09/15/17 08:04 Dose: 40 mg Glucosamine Sulfate (Glucosamine Sulfate) 500 mg PO DAILY [facility] Last Admin: 09/15/17 08:05 Dose: 500 mg Insulin Detemir (Levemir) 6 unit SUBCUT BEDTIME [facility] Last Admin: 09/14/17 19:41 Dose: 6 units Magnesium Oxide (Magnesium Oxide) 400 mg PO TID [facility] Last Admin: 09/15/17 08:04 Dose: 400 mg Metoprolol Tartrate (Lopressor) 50 mg PO BID [facility] Last Admin: 09/15/17 08:05 Dose: 50 mg Multivitamins/Minerals (Thera M Plus) 1 tab PO DAILY [facility] Last Admin: 09/15/17 08:05 Dose: 1 tab Omeprazole (Omeprazole) 20 mg PO DAILY@0700 [facility] Last Admin: 09/15/17 06:06 Dose: 20 mg Oxybutynin Chloride (Oxybutynin) 5 mg PO BID [facility] Last Admin: 09/15/17 08:05 Dose: 5 mg Potassium Chloride (Klor-Con M20) 20 meq PO DAILY [facility] Last Admin: 09/15/17 08:06 Dose: 20 meq Prednisone (Prednisone) 20 mg PO BID [facility] Last Admin: 09/15/17 08:06 Dose: 20 mg Simvastatin (Zocor) 10 mg PO BEDTIME [facility] Last Admin: 09/14/17 19:40 Dose: 10 mg Sodium Chloride (Saline Flush) 10 ml FLUSH ASDIRECTED PRN PRN Reason: Keep Vein Open Last Admin: 09/12/17 22:03 Dose: 10 ml Discontinued Medications Albuterol (Proventil Neb Soln) 2.5 mg NEB ONETIME ONE Stop: 09/10/17 17:05 Last Admin: 09/10/17 17:15 Dose: 2.5 mg Albuterol/Ipratropium (Duoneb 3.0-0.5 Mg/3 Ml) 3 ml NEB Q4H PRN PRN Reason: dyspnea/wheezing Last Admin: 09/11/17 07:27 Dose: 3 ml Budesonide (Pulmicort) 0.5 mg NEB BIDRT [facility] Last Admin: 09/12/17 07:17 Dose: 0.5 mg Ceftriaxone Sodium (Rocephin) 1 gm IVPUSH DAILY [facility] Last Admin: 09/13/17 07:46 Dose: Not Given Ceftriaxone Sodium (Rocephin) 1 gm IM DAILY [facility] Last Admin: 09/13/17 11:04 Dose: Not Given Ceftriaxone Sodium 1 gm/ (Lidocaine HCl 2.1 ml) 0 gm IM DAILY [facility] Furosemide (Lasix) 40 mg PO BIDDIURETIC [facility] Last Admin: 09/12/17 08:06 Dose: 40 mg Furosemide (Lasix) 80 mg IV ONETIME ONE Stop: 09/11/17 08:01 Last Admin: 09/11/17 07:51 Dose: 80 mg Ciprofloxacin/Dextrose 400 mg/ (Premix) 200 mls @ 200 mls/hr IV ONETIME ONE Stop: 09/10/17 17:15 Last Admin: 09/10/17 19:48 Dose: 200 mls/hr Piperacillin Sod/Tazobactam (Sod 4.5 gm/ Sodium Chloride) 100 mls @ 200 mls/hr IV ONETIME ONE Stop: 09/10/17 16:43 Last Admin: 09/10/17 16:47 Dose: 200 mls/hr Vancomycin HCl 1,250 mg/ (Sodium Chloride) 250 mls @ 200 mls/hr IV ONETIME ONE Stop: 09/10/17 17:28 Last Admin: 09/10/17 17:33 Dose: 200 mls/hr Ciprofloxacin/Dextrose 400 mg/ (Premix) 200 mls @ 200 mls/hr IV ONETIME ONE Stop: 09/10/17 20:59 Last Admin: 09/10/17 19:55 Dose: Not Given Ciprofloxacin/Dextrose 400 mg/ (Premix) 200 mls @ 200 mls/hr IV Q12H [facility] Last Admin: 09/11/17 07:50 Dose: 200 mls/hr Piperacillin Sod/Tazobactam (Sod 3.375 gm/ Sodium Chloride) 100 mls @ 25 mls/ hr IV Q8H [facility] Last Admin: 09/12/17 08:06 Dose: 25 mls/hr Insulin Aspart (Novolog) 3 unit SUBCUT ONETIME ONE Stop: 09/12/17 17:06 Last Admin: 09/12/17 17:33 Dose: 3 units Insulin Aspart (Novolog) 5 unit SUBCUT ONETIME ONE Stop: 09/13/17 17:15 Last Admin: 09/13/17 17:19 Dose: 5 units Lidocaine HCl (Xylocaine-Mpf 1%) 2.1 ml INJECT ONETIME ONE Stop: 09/13/17 10:16 Last Admin: 09/13/17 10:44 Dose: 2.1 ml Magnesium Oxide (Magnesium Oxide) 400 mg PO DAILY [facility] Last Admin: 09/12/17 08:06 Dose: 400 mg Methylprednisolone Sodium Succinate (Solu-Medrol) 125 mg IVPUSH ONETIME ONE Stop: 09/10/17 17:05 Last Admin: 09/10/17 17:31 Dose: 125 mg Methylprednisolone Sodium Succinate (Solu-Medrol) 40 mg IVPUSH Q12H [facility] Last Admin: 09/12/17 22:02 Dose: 40 mg Potassium Chloride (Klor-Con M20) 20 meq PO DAILY [facility] Last Admin: 09/11/17 09:46 Dose: 20 meq Potassium Chloride (Klor-Con M20) 20 meq PO TID [facility] Last Admin: 09/12/17 08:06 Dose: 20 meq Prednisone (Prednisone) 4 mg PO DAILY [facility] Last Admin: 09/12/17 08:06 Dose: 4 mg Prednisone (Prednisone) 40 mg PO BID [facility] Last Admin: 09/14/17 09:19 Dose: Not Given - Exam General: Reports: Alert, Cooperative, No Acute Distress HEENT: Reports: Mucous Membr. Moist/[place] Neck: Reports: Supple, Trachea Midline, No Thyromegaly. Denies: Lymphadenopathy Lungs: Reports: Crackles (scattered throughout), Wheezing (scattered throughout) Cardiovascular: Reports: Regular Rate, Regular Rhythm, No Murmurs GI/Abdominal Exam: Normal Bowel Sounds, Soft, Non-Tender, No Organomegaly, No Distention, No Mass Extremities: Normal Inspection, Non-Tender, No Pedal Edema, Normal Capillary Refill Skin: Reports: Warm, Dry, Intact *Q Meaningful Use (DIS) - VTE *Q VTE Criteria *Q: - Stroke *Q Stroke Criteria *Q: - AMI *Q AMI Criteria *Q:
== END 2017-09-15 11:00 | disposition swing bed (61) | DRG 193 ==
LOC: VM.ED 15:45 → VM.MS 17:42 → INTOOBSV 17:42 → OBSVTOIN 17:42
PROVIDERS: ADMIT Internal Medicine; ATTEND Internal Medicine
DX: J18.9 Pneumonia, unspecified organism (principal); J44.9 Chronic obstructive pulmonary disease, unspecified; I50.9 Heart failure, unspecified; I10 Essential (primary) hypertension; I25.10 Atherosclerotic heart disease of native coronary artery without angina pectoris; E78.00 Pure hypercholesterolemia, unspecified; J18.1 Lobar pneumonia, unspecified organism; J96.21 Acute and chronic respiratory failure with hypoxia; J44.1 Chronic obstructive pulmonary disease with (acute) exacerbation; J44.0 Chronic obstructive pulmonary disease with (acute) lower respiratory infection; I50.32 Chronic diastolic (congestive) heart failure; E87.1 Hypo-osmolality and hyponatremia; E46 Unspecified protein-calorie malnutrition; D64.9 Anemia, unspecified; M35.3 Polymyalgia rheumatica; R73.9 Hyperglycemia, unspecified; I48.91 Unspecified atrial fibrillation; I49.3 Ventricular premature depolarization; E83.42 Hypomagnesemia; I25.2 Old myocardial infarction; Z79.899 Other long term (current) drug therapy
CPT/HCPCS: 36415; 71045; 73630-LT; 80048; 80053; 81001; 82550; 82962; 83605; 83735; 83880; 84484; 85008; 85025; 85610; 86140; 87040; 87070; 87086; 87088; 87186; 87205; 87804; 93005; 94640; 94667; 94668; 94760; 96365; 96366; 96367; 96372; 96375; 97110-GP; 97116-GP; 97161-GP; 97165-GO; 97530-GP; 99285; A9270-GY; G0378; J0696; J0744; J1650; J1815-GY; J1940; J2543; J2920; J2930; J3370; J7050; J7620-GY

== ENCOUNTER 2017-09-15 10:45 | Inpatient (IN) | payer MEDICARE, OTHER ==
[2017-09-15] MEDS ORDERED: Albuterol 0.083% 2.5 MG/3 ML Neb Soln NEB PRN (11:57)
--- NOTE | 2017-09-15 12:15 | PCM.HP ---
H&P History of Present Illness - General Date of Service: 09/15/17 Admit Problem/Dx: Admission Diagnosis/Problem Admission Diagnosis/Problem Weakness Source of Information: Patient History Limitations: Reports: No Limitations - History of Present Illness Initial Comments - Free Text/Narative: Mrs. Ortega is a 77 yo female admitted to swing bed for strengthening following an acute hospitalization for community acquired pneumonia and COPD exacerbation. She was initially admitted on 09/10 for this. She is still having some shortness of breath above baseline as well as a productive cough; however, these are improved from her admission. She has not been out of bed much since being in the hospital and is feeling quite weak. Physical therapy did assess her and felt she would benefit from strengthening prior to returning home. She has otherwise been eating and drinking well without any GI upset. Some looser stools but no significant diarrhea. No fever. - Related Data Allergies/Adverse Reactions: Allergies Allergy/AdvReac Type Severity Reaction Status Date / Time No Known Drug Allergies Allergy Other Verified 09/10/17 15:59 seasonal Allergy Itching Uncoded 02/19/16 17:46 Home Medications: Home Meds Budesonide/Formoterol [Symbicort 160-4.5 MCG] 2 puff INH BID 12/15/13 [History] Calcium Citrate/Vitamin D3 [Calcium Citrate with D Tablet] 1 tab PO DAILY [History] Cholecalciferol (Vitamin D3) [Vitamin D3] 2,000 unit PO DAILY 12/15/13 [History] Glucosamine/D3/Boswellia Tiffanie [Glucosamine Complex Tablet] 1 tab PO DAILY 12/15 [History] Multivitamin [Multivitamins] 1 cap PO DAILY 12/15/13 [History] Ascorbate Calcium [Vitamin C] 500 mg PO DAILY 01/25/14 [History] Albuterol [Proventil Neb Soln] 2.5 mg NEB Q4H PRN 11/28/15 [History] Albuterol [Proventil Neb Soln] 2.5 mg NEB QID 11/28/15 [History] Aspirin 81 mg PO DAILY 11/28/15 [History] Cyanocobalamin (Vitamin B-12) [B-12] 500 mcg PO DAILY 11/28/15 [History] Furosemide 40 mg PO BID@0800,1200 11/28/15 [History] Magnesium Oxide [Magnesium] 400 mg PO DAILY 11/28/15 [History] Omeprazole 20 mg PO DAILY 11/28/15 [History] Oxybutynin 5 mg PO BID 11/28/15 [History] Simvastatin [Zocor] 10 mg PO BEDTIME 11/28/15 [History] Docusate Sodium [Colace] 100 mg PO BID 02/19/16 [History] Ferrous Gluconate 324 mg PO Q2D 02/19/16 [History] Potassium Chloride [Klor-Con M20] 20 meq PO DAILY 02/19/16 [History] Acetaminophen [Tylenol] 650 mg PO Q4H PRN #0 tablet 02/25/16 [Rx] Metoprolol Tartrate [Lopressor] 50 mg PO BID tablet 02/25/16 [Rx] Tiotropium [Spiriva Handihaler] 1 cap INH DAILY 02/27/16 [History] predniSONE 4 mg PO DAILY 09/10/17 [History] Acetaminophen [Tylenol] 650 mg PO Q4H PRN tablet 09/15/17 [Rx] Albuterol [IJD: Albuterol] 2.5 mg NEB Q4HRRT PRN nebule 09/15/17 [Rx] Albuterol/Ipratropium [DuoNeb 3.0-0.5 MG/3 ML] 3 ml NEB QIDRT neb 09/15/17 [Rx] Arformoterol [Brovana] 15 mcg NEB BIDRT neb 09/15/17 [Rx] Azithromycin 500 mg PO DAILY 09/15/17 [History] Enoxaparin [Lovenox] 40 mg SUBCUT DAILY syringe 09/15/17 [Rx] Prednisone [IJD: predniSONE] 20 mg PO BID tablet 09/15/17 [Rx] Past Medical History HEENT History: Reports: Cataract, Hard of Hearing Cardiovascular History: Reports: CAD, Heart Failure, High Cholesterol, Hypertension, SOB on Exertion Respiratory History: Reports: COPD, SOB Gastrointestinal History: Reports: Diverticulosis, GERD 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 Musculoskeletal History: Reports: Arthritis - Past Surgical History HEENT Surgical History: Reports: Cataract Surgery GI Surgical History: Reports: Appendectomy, Cholecystectomy, Colonoscopy, Hernia , Abdominal Social & Family History - Family History Neurological: Reports: Dementia Oncologic: Reports: Other (See Below) (stomach cancer) - Tobacco Use Smoking Status *Q: Former Smoker Years of Tobacco use: 55 Packs/Tins Daily: 1 Used Tobacco, but Quit: Yes Month Tobacco Last Used: 3 years ago Second Hand Smoke Exposure: Yes - Caffeine Use Caffeine Use: Reports: None - Alcohol Use Alcohol Use History: No Days Per Week of Alcohol Use: 7 Number of Drinks Per Day: 1 Total Drinks Per Week: 7 Alcohol Use in Last Twelve Months: No - Recreational Drug Use Recreational Drug Use: No - Living Situation & Occupation Living situation: Reports: , with Significant Other Occupation: Retired H&P Review of Systems - Review of Systems: Review Of Systems: See Below General: Reports: No Symptoms HEENT: Reports: No Symptoms Pulmonary: Reports: Shortness of Breath, Cough Cardiovascular: Reports: No Symptoms Gastrointestinal: Reports: No Symptoms Genitourinary: Reports: No Symptoms Musculoskeletal: Reports: No Symptoms Skin: Reports: No Symptoms Neurological: Reports: No Symptoms Exam - Exam Exam: See Below - Vital Signs Weight: 75.92 kg - Exam General: Alert, Cooperative HEENT: Conjunctiva Clear, Mucosa Moist & [place], Pupils Equal, Pupils Reactive Neck: Supple, Trachea Midline. No: Lymphadenopathy, Thyromegaly Lungs: Normal Respiratory Effort, Crackles (scattered bilaterally), Wheezing ( scattered bilaterally) Cardiovascular: Regular Rate, Regular Rhythm, Normal S1, Normal S2 GI/Abdominal Exam: Normal Bowel Sounds, Soft, Non-Tender, No Organomegaly, No Distention, No Mass Extremities: Normal Inspection, Non-Tender, No Pedal Edema, Normal Capillary Refill Peripheral Pulses: 2+: Radial (L), Radial (R) Skin: Warm, Dry, Intact *Q Meaningful Use (ADM) - VTE *Q VTE Criteria *Q: - Stroke *Q Stroke Criteria *Q: - AMI *Q AMI Criteria *Q: - Problem List (1) Generalized weakness SNOMED Code(s): 82797737 ICD Code: R53.1 - WEAKNESS Status: Acute Current Visit: Yes Problem Details: - Secondary to below listed conditions as well as underlying chronic medical conditions. - Unclear what her baseline is. However, PT does feel she would benefit from strengthening. - PT and OT consults. (2) CAP (community acquired pneumonia) SNOMED Code(s): 681539985 ICD Code: J18.9 - PNEUMONIA, UNSPECIFIED ORGANISM Status: Acute Priority : Medium Current Visit: No Problem Details: - Improving slowly. - Complete 2 more days of azithromycin. Qualifiers: Laterality: right Lung location: lower lobe of lung Qualified Code(s): J18.1 - Lobar pneumonia, unspecified organism (3) COPD exacerbation SNOMED Code(s): 566913263 ICD Code: J44.1 - CHRONIC OBSTRUCTIVE PULMONARY DISEASE W (ACUTE) EXACERBATION Status: Acute Priority: Medium Current Visit: No Problem Details: - Continue prednisone. Will not reduce the dose further at this time and that can be tapered as she continues to improve. - Continue to use Aerobika for pulmonary hygiene as well. - Continue neb treatments. (4) CHF (congestive heart failure) SNOMED Code(s): 46861419 ICD Code: I50.9 - HEART FAILURE, UNSPECIFIED Status: Chronic Current Visit: No Problem Details: - No acute CHF symptoms. - Home medications continued. Qualifiers: Heart failure type: diastolic Heart failure chronicity: chronic Qualified Code(s): I50.32 - Chronic diastolic (congestive) heart failure (5) Respiratory failure with hypoxia SNOMED Code(s): 65464823686762334 ICD Code: J96.91 - RESPIRATORY FAILURE, UNSPECIFIED WITH HYPOXIA Status: Chronic Priority: High Current Visit: No Problem Details: - Continue oxygen at home rate of 4 LPM via nasal cannula. Qualifiers: Chronicity: acute on chronic Qualified Code(s): J96.21 - Acute and chronic respiratory failure with hypoxia Problem List Initiated/Reviewed/Updated: Yes Orders Last 24hrs: Active Orders 24 hr Category Date Time Status Admission Status [Patient Status] [ADT] Routine ADT 09/15/17 11:00 Active Antiembolic Devices [] , Care 09/15/17 11:40 Active Blood Glucose Check, Bedside [] 07,,17,20 Care 09/15/17 11:41 Active Oxygen Therapy Adult [Oxygen Therapy, ED] [] Care 09/15/17 11:41 Inactive ASDIRECTED Oxygen Therapy Adult [Oxygen Therapy] [RC] , Care 09/15/17 11:43 Active RT Aerosol Therapy [RC] 07,,15,20 Care 09/15/17 11:44 Active Up With Assistance [RC] , Care 09/15/17 11:39 Active Up to Chair [RC] , Care 09/15/17 11:40 Active OT Evaluation and Treatment [CONS] Routine Cons 09/15/17 11:33 Active PT Evaluation and Treatment [CONS] Routine Cons 09/15/17 11:33 Active Heart Healthy Diet [DIET] Diet 09/15/17 Dinner Ordered Acetaminophen [Tylenol] Med 09/15/17 11:57 Ordered 650 mg PO Q4H PRN Albuterol [Proventil Neb Soln] Med 09/15/17 11:57 Ordered 2.5 mg NEB Q4HRRT PRN Albuterol/Ipratropium [DuoNeb 3.0-0.5 MG/3 ML] Med 09/15/17 15:00 Ordered 3 ml NEB QIDRT Arformoterol [Brovana] Med 09/15/17 20:00 Ordered 15 mcg NEB BIDRT Ascorbate Calcium [Vitamin C] Med 09/16/17 08:00 Ordered 500 mg PO DAILY Aspirin Med 09/16/17 08:00 Ordered 81 mg PO DAILY Azithromycin [Azithromycin] Med 09/16/17 08:00 Ordered 500 mg PO DAILY Calcium Citrate/Vitamin D3 [Calcium Citrate with D Med 09/16/17 08:00 Ordered Tablet] 1 tab PO DAILY Cholecalciferol (Vitamin D3) [Vitamin D3] Med 09/16/17 08:00 Ordered 2,000 unit PO DAILY Cyanocobalamin (Vitamin B-12) [B-12] Med 09/16/17 08:00 Ordered 500 mcg PO DAILY Enoxaparin [Lovenox] Med 09/16/17 08:00 Ordered 40 mg SUBCUT DAILY Ferrous Gluconate [Ferrous Gluconate] Med 09/15/17 12:15 Ordered 324 mg PO Q2D Furosemide [Lasix] Med 09/16/17 08:00 Ordered 40 mg PO BID@0800,1200 Magnesium Oxide [Magnesium] Med 09/16/17 08:00 Ordered 400 mg PO DAILY Metoprolol Tartrate [Lopressor] Med 09/15/17 20:00 Ordered 50 mg PO BID Omeprazole Med 09/16/17 08:00 Ordered 20 mg PO DAILY Oxybutynin Med 09/15/17 20:00 Ordered 5 mg PO BID Potassium Chloride [Klor-Con M20] Med 09/16/17 08:00 Ordered 20 meq PO DAILY Simvastatin [Zocor] Med 09/15/17 20:00 Ordered 10 mg PO BEDTIME predniSONE Med 09/15/17 20:00 Ordered 20 mg PO BID Code Status [Resuscitation Status] Routine Resus Stat 09/15/17 11:50 Ordered Assessment/Plan Comment:: 77 yo female admitted to swing bed for strengthening following an acute hospitalization for COPD exacerbation and pneumonia. Other symptoms improving but she is quite weak. See details under problems above. She will complete her azithromycin after 2 more days. Continue prednisone at 20 mg BID for now; this can be tapered further as she continues to improve. Otherwise, continue home medications. She is DNR/DNI. Continue lovenox for VTE prophylaxis until she is up and moving better. Dismissal date will depend on progress with PT.
[2017-09-15] MEDS: Albuterol/Ipratropium 3.0-0.5 MG/3 ML Neb Soln NEB SCH ×2 (14:46→19:41)
[2017-09-15] MEDS: Furosemide 40 MG Tab PO SCH (15:47)
[2017-09-15] MEDS: predniSONE 20 MG Tab PO SCH (17:02)
[2017-09-15] MEDS: Arformoterol 15 MCG/2 ML Neb Soln NEB SCH (19:40)
[2017-09-15] MEDS: Simvastatin 10 MG Tab PO SCH (19:41)
[2017-09-15] MEDS: Oxybutynin 5 MG Tab PO SCH (19:41)
[2017-09-15] MEDS: Metoprolol Tartrate 50 MG Tab PO SCH (19:41)
[2017-09-15] MEDS: Insulin Detemir 100 Units/ML 3 ML Pen SUBCUT SCH (19:46)
[2017-09-16] MEDS: Omeprazole 20 MG Cap.CR PO SCH (06:21)
[2017-09-16] MEDS: Azithromycin 250 MG Tab PO SCH (06:21)
[2017-09-16] MEDS: Albuterol/Ipratropium 3.0-0.5 MG/3 ML Neb Soln NEB SCH ×4 (07:09→19:34)
[2017-09-16] MEDS: Arformoterol 15 MCG/2 ML Neb Soln NEB SCH ×2 (07:10→19:34)
[2017-09-16] MEDS: Magnesium Oxide 400 MG Tab PO SCH (07:23)
[2017-09-16] MEDS: predniSONE 20 MG Tab PO SCH ×2 (07:23→16:59)
[2017-09-16] MEDS: Aspirin 81 MG Tab.EC PO SCH (07:23)
[2017-09-16] MEDS: Cyanocobalamin (Vitamin B12) 250 MCG Tab PO SCH (07:23)
[2017-09-16] MEDS: Calcium Citrate/Vitamin D3 315 MG-250 Unit Tab PO SCH (07:23)
[2017-09-16] MEDS: Ascorbic Acid 500 MG Tab PO SCH (07:23)
[2017-09-16] MEDS: Furosemide 40 MG Tab PO SCH ×2 (07:24→12:26)
[2017-09-16] MEDS: Enoxaparin 40 MG/0.4 ML Syringe SUBCUT SCH (07:24)
[2017-09-16] MEDS: Potassium Chloride 20 MEQ Tab.ER PO SCH (07:24)
[2017-09-16] MEDS: Cholecalciferol (Vitamin D3) 1,000 Unit Tab PO SCH (07:24)
[2017-09-16] MEDS: Metoprolol Tartrate 50 MG Tab PO SCH ×2 (07:24→19:33)
[2017-09-16] MEDS: Oxybutynin 5 MG Tab PO SCH ×2 (07:24→19:32)
[2017-09-16] MEDS ORDERED: Furosemide 40 MG Tab PO SCH (08:00)
[2017-09-16] MEDS: Simvastatin 10 MG Tab PO SCH (19:32)
[2017-09-16] MEDS: Insulin Detemir 100 Units/ML 3 ML Pen SUBCUT SCH (19:35)
[2017-09-17] MEDS: Azithromycin 250 MG Tab PO SCH ×2 (05:56→06:40)
[2017-09-17] MEDS: Omeprazole 20 MG Cap.CR PO SCH ×2 (05:56→06:40)
[2017-09-17] MEDS: Albuterol/Ipratropium 3.0-0.5 MG/3 ML Neb Soln NEB SCH ×4 (07:09→20:08)
[2017-09-17] MEDS: Arformoterol 15 MCG/2 ML Neb Soln NEB SCH ×2 (07:09→20:08)
[2017-09-17] MEDS: Potassium Chloride 20 MEQ Tab.ER PO SCH (07:49)
[2017-09-17] MEDS: Ferrous Sulfate 325 MG Tab PO SCH (07:49)
[2017-09-17] MEDS: Cyanocobalamin (Vitamin B12) 250 MCG Tab PO SCH (07:49)
[2017-09-17] MEDS: Aspirin 81 MG Tab.EC PO SCH (07:49)
[2017-09-17] MEDS: Ascorbic Acid 500 MG Tab PO SCH (07:50)
[2017-09-17] MEDS: Cholecalciferol (Vitamin D3) 1,000 Unit Tab PO SCH (07:50)
[2017-09-17] MEDS: Magnesium Oxide 400 MG Tab PO SCH (07:50)
[2017-09-17] MEDS: Oxybutynin 5 MG Tab PO SCH ×2 (07:51→20:08)
[2017-09-17] MEDS: Furosemide 40 MG Tab PO SCH ×2 (07:51→12:11)
[2017-09-17] MEDS: Calcium Citrate/Vitamin D3 315 MG-250 Unit Tab PO SCH (07:51)
[2017-09-17] MEDS: predniSONE 20 MG Tab PO SCH ×2 (07:51→17:10)
[2017-09-17] MEDS: Metoprolol Tartrate 50 MG Tab PO SCH ×2 (07:52→20:11)
[2017-09-17] MEDS: Enoxaparin 40 MG/0.4 ML Syringe SUBCUT SCH (07:53)
[2017-09-17] MEDS: Insulin Detemir 100 Units/ML 3 ML Pen SUBCUT SCH (20:08)
[2017-09-17] MEDS: Simvastatin 10 MG Tab PO SCH (20:09)
[2017-09-18] MEDS: Omeprazole 20 MG Cap.CR PO SCH (06:13)
[2017-09-18] MEDS: Arformoterol 15 MCG/2 ML Neb Soln NEB SCH ×2 (07:18→20:21)
[2017-09-18] MEDS: Albuterol/Ipratropium 3.0-0.5 MG/3 ML Neb Soln NEB SCH ×4 (07:18→20:21)
[2017-09-18] MEDS: Enoxaparin 40 MG/0.4 ML Syringe SUBCUT SCH (08:06)
[2017-09-18] MEDS: Cholecalciferol (Vitamin D3) 1,000 Unit Tab PO SCH (08:06)
[2017-09-18] MEDS: Magnesium Oxide 400 MG Tab PO SCH (08:07)
[2017-09-18] MEDS: Potassium Chloride 20 MEQ Tab.ER PO SCH (08:07)
[2017-09-18] MEDS: Cyanocobalamin (Vitamin B12) 250 MCG Tab PO SCH (08:07)
[2017-09-18] MEDS: Furosemide 40 MG Tab PO SCH ×2 (08:07→12:39)
[2017-09-18] MEDS: Oxybutynin 5 MG Tab PO SCH ×2 (08:08→20:21)
[2017-09-18] MEDS: predniSONE 20 MG Tab PO SCH ×2 (08:08→17:26)
[2017-09-18] MEDS: Metoprolol Tartrate 50 MG Tab PO SCH ×2 (08:08→20:22)
[2017-09-18] MEDS: Ascorbic Acid 500 MG Tab PO SCH (08:08)
[2017-09-18] MEDS: Aspirin 81 MG Tab.EC PO SCH (08:08)
[2017-09-18] MEDS: Calcium Citrate/Vitamin D3 315 MG-250 Unit Tab PO SCH (08:09)
--- NOTE | 2017-09-18 18:56 | PN ---
Progress Note for MIGUEL Perez RADHA Date: 09/18/2017 Room #: VM.202 SUBJECTIVE: This is a 77-year-old on swing bed after an acute stay. She was discharged on Friday. She has been having some trouble getting up and moving. She is quite deconditioned, so she is working with therapies. She is still short of breath and coughing. She completed 6 days of antibiotics with Rocephin and Zithromax. She remained on prednisone 20 mg twice daily. She is wheezing a little bit more today per nursing. The nebs do seem to help. She has been on Lovenox. All lab work looked excellent on Friday. She has been afebrile. She is on her home oxygen schedule of 4 L. Her weight was 74.7 kg, which is actually less than admission was 75. She has chronic ankle swelling. OBJECTIVE: Vital Signs: Her temperature is 98, pulse 77, blood pressure was 136/77, respiratory rate 18, O2 96% on 4 L. General: She is in no acute distress. Heart: Regular rate and rhythm with murmur. Respiratory: Lung sounds do show decreased air entry throughout with some expiratory wheezing noted throughout. Abdomen: Nontender. Extremities: Trace edema. Mental Status: Alert and orientated x3. ASSESSMENT AND PLAN: 1. Community-acquired pneumonia, left lower lobe, treated adequately with antibiotics. 2. Chronic hypoxic respiratory failure secondary to chronic obstructive pulmonary disease, on her home oxygen. 3. Chronic obstructive pulmonary disease with recent exacerbation due to pneumonia. She is continuing on scheduled medications. 4. Polymyalgia, on prednisone. We will taper when lung status is more stable. 5. History of chronic diastolic heart failure, on Lasix 40 mg twice daily. I will do a BNP tomorrow. 6. Remote history of peptic ulcer disease. 7. Hypomagnesemia. 8. Prediabetes with hyperglycemia due to steroids, on insulin. We will continue Accu-Cheks. PLAN: At this point, the patient will continue on swing bed cares. Hopefully when her prednisone comes down, the insulin can come off. She will continue to work with therapies. We will repeat lab work tomorrow. We will increase her Lasix doses if needed. We will repeat her x-ray if needed, but currently I feel her respiratory status is fairly stable. She does have some chronic lung problems. She also did have some anemia, which should be noted that she has chronic anemia with some blast cells. She had a peripheral smear reviewed. This has been noted even back in 2013. There could be some underlying myelodysplastic syndrome. At this point, we are just going to monitor blood counts. I am not recommending any other aggressive workup. MKA: 09/18/2017 16:13:00 MODL: 09/18/2017 18:49:21 /[id number]
[2017-09-18] MEDS: Simvastatin 10 MG Tab PO SCH (20:21)
[2017-09-18] MEDS: Insulin Detemir 100 Units/ML 3 ML Pen SUBCUT SCH (20:24)
[2017-09-19] MEDS: Omeprazole 20 MG Cap.CR PO SCH (06:04)
[2017-09-19] MEDS: Arformoterol 15 MCG/2 ML Neb Soln NEB SCH ×2 (06:53→19:59)
[2017-09-19] MEDS: Albuterol/Ipratropium 3.0-0.5 MG/3 ML Neb Soln NEB SCH ×4 (06:53→19:59)
[2017-09-19 07:11] LABS: CHLORIDE,CL 97 mmol/L (98-107); SODIUM,NA 138 mmol/L (136-145)
[2017-09-19] MEDS: Cholecalciferol (Vitamin D3) 1,000 Unit Tab PO SCH (07:43)
[2017-09-19] MEDS: Potassium Chloride 20 MEQ Tab.ER PO SCH ×2 (07:43→19:58)
[2017-09-19] MEDS: Cyanocobalamin (Vitamin B12) 250 MCG Tab PO SCH (07:44)
[2017-09-19] MEDS: Magnesium Oxide 400 MG Tab PO SCH (07:45)
[2017-09-19] MEDS: Ascorbic Acid 500 MG Tab PO SCH (07:45)
[2017-09-19] MEDS: Calcium Citrate/Vitamin D3 315 MG-250 Unit Tab PO SCH (07:45)
[2017-09-19] MEDS: predniSONE 20 MG Tab PO SCH ×2 (07:46→17:45)
[2017-09-19] MEDS: Aspirin 81 MG Tab.EC PO SCH (07:46)
[2017-09-19] MEDS: Metoprolol Tartrate 50 MG Tab PO SCH ×2 (07:46→19:58)
[2017-09-19] MEDS: Ferrous Sulfate 325 MG Tab PO SCH (07:47)
[2017-09-19] MEDS: Furosemide 40 MG Tab PO SCH ×2 (07:47→11:50)
[2017-09-19] MEDS: Enoxaparin 40 MG/0.4 ML Syringe SUBCUT SCH (07:48)
[2017-09-19] MEDS: Oxybutynin 5 MG Tab PO SCH ×2 (07:48→19:58)
[2017-09-19] MEDS: Simvastatin 10 MG Tab PO SCH (19:58)
[2017-09-19] MEDS: Insulin Detemir 100 Units/ML 3 ML Pen SUBCUT SCH (19:59)
[2017-09-20] MEDS: Omeprazole 20 MG Cap.CR PO SCH (06:14)
[2017-09-20] MEDS: Albuterol/Ipratropium 3.0-0.5 MG/3 ML Neb Soln NEB SCH ×4 (06:51→20:38)
[2017-09-20] MEDS: Arformoterol 15 MCG/2 ML Neb Soln NEB SCH ×2 (06:51→20:37)
[2017-09-20] MEDS: Oxybutynin 5 MG Tab PO SCH ×2 (08:21→20:35)
[2017-09-20] MEDS: Calcium Citrate/Vitamin D3 315 MG-250 Unit Tab PO SCH (08:21)
[2017-09-20] MEDS: predniSONE 20 MG Tab PO SCH ×2 (08:21→18:46)
[2017-09-20] MEDS: Furosemide 40 MG Tab PO SCH ×2 (08:21→11:48)
[2017-09-20] MEDS: Aspirin 81 MG Tab.EC PO SCH (08:22)
[2017-09-20] MEDS: Magnesium Oxide 400 MG Tab PO SCH (08:22)
[2017-09-20] MEDS: Ascorbic Acid 500 MG Tab PO SCH (08:22)
[2017-09-20] MEDS: Potassium Chloride 20 MEQ Tab.ER PO SCH ×2 (08:22→20:38)
[2017-09-20] MEDS: Cyanocobalamin (Vitamin B12) 250 MCG Tab PO SCH (08:22)
[2017-09-20] MEDS: Cholecalciferol (Vitamin D3) 1,000 Unit Tab PO SCH (08:22)
[2017-09-20] MEDS: Metoprolol Tartrate 50 MG Tab PO SCH ×2 (08:23→20:35)
[2017-09-20] MEDS: Enoxaparin 40 MG/0.4 ML Syringe SUBCUT SCH (08:29)
[2017-09-20] MEDS: Simvastatin 10 MG Tab PO SCH (20:37)
[2017-09-20] MEDS: Insulin Detemir 100 Units/ML 3 ML Pen SUBCUT SCH (20:42)
[2017-09-21] MEDS: Omeprazole 20 MG Cap.CR PO SCH (06:22)
[2017-09-21] MEDS: Albuterol/Ipratropium 3.0-0.5 MG/3 ML Neb Soln NEB SCH ×4 (07:02→20:17)
[2017-09-21] MEDS: Arformoterol 15 MCG/2 ML Neb Soln NEB SCH ×2 (07:02→20:17)
[2017-09-21] MEDS: Calcium Citrate/Vitamin D3 315 MG-250 Unit Tab PO SCH (07:40)
[2017-09-21] MEDS: Furosemide 40 MG Tab PO SCH ×2 (07:40→12:05)
[2017-09-21] MEDS: Metoprolol Tartrate 50 MG Tab PO SCH ×2 (07:40→20:18)
[2017-09-21] MEDS: Aspirin 81 MG Tab.EC PO SCH (07:40)
[2017-09-21] MEDS: Oxybutynin 5 MG Tab PO SCH ×2 (07:42→20:19)
[2017-09-21] MEDS: predniSONE 20 MG Tab PO SCH ×2 (07:42→17:50)
[2017-09-21] MEDS: Potassium Chloride 20 MEQ Tab.ER PO SCH ×2 (07:42→20:00)
[2017-09-21] MEDS: Ascorbic Acid 500 MG Tab PO SCH (07:42)
[2017-09-21] MEDS: Cholecalciferol (Vitamin D3) 1,000 Unit Tab PO SCH (07:42)
[2017-09-21] MEDS: Cyanocobalamin (Vitamin B12) 250 MCG Tab PO SCH (07:42)
[2017-09-21] MEDS: Magnesium Oxide 400 MG Tab PO SCH (07:42)
[2017-09-21] MEDS: Enoxaparin 40 MG/0.4 ML Syringe SUBCUT SCH (07:45)
[2017-09-21] MEDS: Insulin Detemir 100 Units/ML 3 ML Pen SUBCUT SCH (20:12)
[2017-09-21] MEDS: Simvastatin 10 MG Tab PO SCH (20:20)
[2017-09-22] MEDS: Omeprazole 20 MG Cap.CR PO SCH (06:21)
[2017-09-22] MEDS: Albuterol/Ipratropium 3.0-0.5 MG/3 ML Neb Soln NEB SCH ×4 (07:07→20:20)
[2017-09-22] MEDS: Arformoterol 15 MCG/2 ML Neb Soln NEB SCH ×2 (07:08→20:20)
[2017-09-22] MEDS: Cyanocobalamin (Vitamin B12) 250 MCG Tab PO SCH (07:57)
[2017-09-22] MEDS: Calcium Citrate/Vitamin D3 315 MG-250 Unit Tab PO SCH (07:57)
[2017-09-22] MEDS: Ascorbic Acid 500 MG Tab PO SCH (07:58)
[2017-09-22] MEDS: Magnesium Oxide 400 MG Tab PO SCH (07:58)
[2017-09-22] MEDS: Furosemide 40 MG Tab PO SCH ×2 (07:58→12:19)
[2017-09-22] MEDS: Potassium Chloride 20 MEQ Tab.ER PO SCH ×2 (07:58→20:20)
[2017-09-22] MEDS: predniSONE 20 MG Tab PO SCH (07:59)
[2017-09-22] MEDS: Ferrous Sulfate 325 MG Tab PO SCH (07:59)
[2017-09-22] MEDS: Cholecalciferol (Vitamin D3) 1,000 Unit Tab PO SCH (07:59)
[2017-09-22] MEDS: Aspirin 81 MG Tab.EC PO SCH (07:59)
[2017-09-22] MEDS: Oxybutynin 5 MG Tab PO SCH ×2 (08:01→20:20)
[2017-09-22] MEDS: Metoprolol Tartrate 50 MG Tab PO SCH ×2 (08:01→20:21)
[2017-09-22] MEDS: Enoxaparin 40 MG/0.4 ML Syringe SUBCUT SCH (08:02)
--- NOTE | 2017-09-22 12:51 | PN ---
Progress Note for MIGUEL GARCIA Date: 09/22/2017 Room #: VM.202 SUBJECTIVE: This is a 77-year-old on swing bed after pneumonia and a COPD exacerbation. She is breathing better, coughing less. She is still on prednisone 20 mg twice daily. Her legs continue to swell, right leg greater than the left, which is a chronic problem. She is on Lasix. Otherwise, she has been afebrile. OBJECTIVE: Vital Signs: Her temperature is 97.9, pulse 65, blood pressure 138/84, respiratory rate 20, and O2 of 98 on 4 L. Weight 73.6 kg. General: She is in no acute distress. Heart: Regularly irregular with murmur. EKGs have not shown atrial fibrillation. Lungs: Lung sounds are slightly decreased, but no crackles or wheezes appreciated. Extremities: Warm and dry. She has 2+ edema at the right ankle, 1+ at the left. Mental Status: She is alert and orientated x3. ASSESSMENT: 1. Pneumonia and chronic obstructive pulmonary disease exacerbation, resolving. She has completed antibiotics. We will taper her down to 20 mg of prednisone today. She was on chronic prednisone for polymyalgia rheumatica, and we will taper down to her previous dose, which I believe was 6 mg. 2. Chronic hypoxic respiratory failure due to chronic obstructive pulmonary disease. She is on home oxygen 4 L. 3. History of diastolic heart failure, stable. On Lasix. We will continue to monitor. We did increase her potassium. We will check BMP tomorrow. 4. Remote history of peptic ulcer disease. 5. Chronic anemia. 6. Hypomagnesemia. 7. Prediabetes with hyperglycemia due to steroids. Due to decreasing steroids, we will stop her insulin, which was only at 4 units. 8. Deep venous thrombosis prophylaxis. She will continue on Lovenox. PLAN: At this point, we will do lab work tomorrow. We will taper prednisone to 20 mg once daily and stop insulin. I will continue b.i.d. Accu-Cheks for now. She will continue to be up and working with therapies. Discharge home when stable. MKA: 09/22/2017 12:25:05 MODL: 09/22/2017 12:44:37 /[id number]
[2017-09-22] MEDS: Simvastatin 10 MG Tab PO SCH (20:20)
[2017-09-23] MEDS: Omeprazole 20 MG Cap.CR PO SCH (06:22)
[2017-09-23 06:55] LABS: CHLORIDE,CL 94 mmol/L (98-107); SODIUM,NA 135 mmol/L (136-145)
[2017-09-23] MEDS: Albuterol/Ipratropium 3.0-0.5 MG/3 ML Neb Soln NEB SCH ×4 (07:18→19:55)
[2017-09-23] MEDS: Arformoterol 15 MCG/2 ML Neb Soln NEB SCH ×2 (07:18→19:55)
[2017-09-23] MEDS: Cyanocobalamin (Vitamin B12) 250 MCG Tab PO SCH (09:42)
[2017-09-23] MEDS: Furosemide 40 MG Tab PO SCH ×2 (09:42→12:07)
[2017-09-23] MEDS: Magnesium Oxide 400 MG Tab PO SCH (09:42)
[2017-09-23] MEDS: Metoprolol Tartrate 50 MG Tab PO SCH ×2 (09:42→19:55)
[2017-09-23] MEDS: Cholecalciferol (Vitamin D3) 1,000 Unit Tab PO SCH (09:42)
[2017-09-23] MEDS: Oxybutynin 5 MG Tab PO SCH ×2 (09:43→19:55)
[2017-09-23] MEDS: Enoxaparin 40 MG/0.4 ML Syringe SUBCUT SCH (09:43)
[2017-09-23] MEDS: predniSONE 20 MG Tab PO SCH (09:43)
[2017-09-23] MEDS: Calcium Citrate/Vitamin D3 315 MG-250 Unit Tab PO SCH (09:43)
[2017-09-23] MEDS: Ascorbic Acid 500 MG Tab PO SCH (09:43)
[2017-09-23] MEDS: Aspirin 81 MG Tab.EC PO SCH (09:43)
[2017-09-23] MEDS: Potassium Chloride 20 MEQ Tab.ER PO SCH ×3 (09:45→17:30)
[2017-09-23] MEDS: Simvastatin 10 MG Tab PO SCH (19:54)
[2017-09-24] MEDS: Omeprazole 20 MG Cap.CR PO SCH (06:18)
[2017-09-24] MEDS: Arformoterol 15 MCG/2 ML Neb Soln NEB SCH ×2 (06:53→20:06)
[2017-09-24] MEDS: Albuterol/Ipratropium 3.0-0.5 MG/3 ML Neb Soln NEB SCH ×4 (06:53→20:06)
[2017-09-24] MEDS: Enoxaparin 40 MG/0.4 ML Syringe SUBCUT SCH (07:56)
[2017-09-24] MEDS: Aspirin 81 MG Tab.EC PO SCH (07:57)
[2017-09-24] MEDS: predniSONE 20 MG Tab PO SCH (07:57)
[2017-09-24] MEDS: Magnesium Oxide 400 MG Tab PO SCH (07:58)
[2017-09-24] MEDS: Ascorbic Acid 500 MG Tab PO SCH (07:58)
[2017-09-24] MEDS: Metoprolol Tartrate 50 MG Tab PO SCH ×2 (07:58→20:06)
[2017-09-24] MEDS: Calcium Citrate/Vitamin D3 315 MG-250 Unit Tab PO SCH (07:59)
[2017-09-24] MEDS: Cyanocobalamin (Vitamin B12) 250 MCG Tab PO SCH (07:59)
[2017-09-24] MEDS: Cholecalciferol (Vitamin D3) 1,000 Unit Tab PO SCH (07:59)
[2017-09-24] MEDS: Oxybutynin 5 MG Tab PO SCH ×2 (08:00→20:07)
[2017-09-24] MEDS: Furosemide 40 MG Tab PO SCH ×2 (08:00→11:14)
[2017-09-24] MEDS: Ferrous Sulfate 325 MG Tab PO SCH (08:00)
[2017-09-24] MEDS: Potassium Chloride 20 MEQ Tab.ER PO SCH ×3 (08:00→17:13)
[2017-09-24] MEDS: Simvastatin 10 MG Tab PO SCH (20:06)
[2017-09-25] MEDS: Omeprazole 20 MG Cap.CR PO SCH (06:17)
[2017-09-25] MEDS: Arformoterol 15 MCG/2 ML Neb Soln NEB SCH ×2 (06:56→20:33)
[2017-09-25] MEDS: Albuterol/Ipratropium 3.0-0.5 MG/3 ML Neb Soln NEB SCH ×4 (06:57→20:33)
[2017-09-25] MEDS: Ascorbic Acid 500 MG Tab PO SCH (07:59)
[2017-09-25] MEDS: Aspirin 81 MG Tab.EC PO SCH (08:00)
[2017-09-25] MEDS: Furosemide 40 MG Tab PO SCH ×2 (08:00→12:56)
[2017-09-25] MEDS: Calcium Citrate/Vitamin D3 315 MG-250 Unit Tab PO SCH (08:00)
[2017-09-25] MEDS: Cholecalciferol (Vitamin D3) 1,000 Unit Tab PO SCH (08:01)
[2017-09-25] MEDS: Cyanocobalamin (Vitamin B12) 250 MCG Tab PO SCH (08:01)
[2017-09-25] MEDS: Potassium Chloride 20 MEQ Tab.ER PO SCH ×3 (08:01→21:15)
[2017-09-25] MEDS: Magnesium Oxide 400 MG Tab PO SCH (08:01)
[2017-09-25] MEDS: Oxybutynin 5 MG Tab PO SCH ×2 (08:02→20:33)
[2017-09-25] MEDS: Enoxaparin 40 MG/0.4 ML Syringe SUBCUT SCH (08:03)
[2017-09-25] MEDS: predniSONE 20 MG Tab PO SCH (08:03)
[2017-09-25] MEDS: Metoprolol Tartrate 50 MG Tab PO SCH ×2 (08:04→20:33)
[2017-09-25] MEDS ORDERED: predniSONE 10 MG Tab PO SCH (08:15)
[2017-09-25] MEDS: Miconazole 2% Top Powder 45 GM Container TOP SCH ×2 (09:55→20:34)
[2017-09-25] MEDS: Simvastatin 10 MG Tab PO SCH (20:34)
[2017-09-26] MEDS: Omeprazole 20 MG Cap.CR PO SCH (06:18)
[2017-09-26] MEDS: Arformoterol 15 MCG/2 ML Neb Soln NEB SCH ×2 (07:18→20:03)
[2017-09-26] MEDS: Albuterol/Ipratropium 3.0-0.5 MG/3 ML Neb Soln NEB SCH ×4 (07:18→20:04)
[2017-09-26 07:19] LABS: CHLORIDE,CL 95 mmol/L (98-107); SODIUM,NA 138 mmol/L (136-145)
[2017-09-26] MEDS: Ascorbic Acid 500 MG Tab PO SCH (07:30)
[2017-09-26] MEDS: Magnesium Oxide 400 MG Tab PO SCH (07:30)
[2017-09-26] MEDS: Oxybutynin 5 MG Tab PO SCH ×2 (07:30→20:04)
[2017-09-26] MEDS: Aspirin 81 MG Tab.EC PO SCH (07:30)
[2017-09-26] MEDS: Calcium Citrate/Vitamin D3 315 MG-250 Unit Tab PO SCH (07:30)
[2017-09-26] MEDS: Furosemide 40 MG Tab PO SCH ×2 (07:30→12:42)
[2017-09-26] MEDS: Cyanocobalamin (Vitamin B12) 250 MCG Tab PO SCH (07:30)
[2017-09-26] MEDS: Ferrous Sulfate 325 MG Tab PO SCH (07:31)
[2017-09-26] MEDS: Metoprolol Tartrate 50 MG Tab PO SCH ×2 (07:31→20:04)
[2017-09-26] MEDS: Cholecalciferol (Vitamin D3) 1,000 Unit Tab PO SCH (07:31)
[2017-09-26] MEDS: Miconazole 2% Top Powder 45 GM Container TOP SCH ×2 (07:32→20:04)
[2017-09-26] MEDS: Enoxaparin 40 MG/0.4 ML Syringe SUBCUT SCH (07:32)
[2017-09-26] MEDS: predniSONE 10 MG Tab PO SCH (08:44)
[2017-09-26] MEDS: Potassium Chloride 20 MEQ Tab.ER PO SCH ×2 (08:45→17:00)
[2017-09-26] MEDS: Simvastatin 10 MG Tab PO SCH (20:05)
[2017-09-27] MEDS: Omeprazole 20 MG Cap.CR PO SCH (06:07)
[2017-09-27] MEDS: Albuterol/Ipratropium 3.0-0.5 MG/3 ML Neb Soln NEB SCH ×4 (06:55→19:31)
[2017-09-27] MEDS: Arformoterol 15 MCG/2 ML Neb Soln NEB SCH ×2 (06:55→20:23)
[2017-09-27] MEDS: Oxybutynin 5 MG Tab PO SCH ×2 (07:37→19:32)
[2017-09-27] MEDS: Metoprolol Tartrate 50 MG Tab PO SCH ×2 (07:37→19:32)
[2017-09-27] MEDS: Furosemide 40 MG Tab PO SCH ×2 (07:38→11:20)
[2017-09-27] MEDS: Cholecalciferol (Vitamin D3) 1,000 Unit Tab PO SCH (07:38)
[2017-09-27] MEDS: predniSONE 10 MG Tab PO SCH (07:38)
[2017-09-27] MEDS: Ascorbic Acid 500 MG Tab PO SCH (07:38)
[2017-09-27] MEDS: Cyanocobalamin (Vitamin B12) 250 MCG Tab PO SCH (07:38)
[2017-09-27] MEDS: Aspirin 81 MG Tab.EC PO SCH (07:38)
[2017-09-27] MEDS: Calcium Citrate/Vitamin D3 315 MG-250 Unit Tab PO SCH (07:38)
[2017-09-27] MEDS: Potassium Chloride 20 MEQ Tab.ER PO SCH ×2 (07:38→17:19)
[2017-09-27] MEDS: Magnesium Oxide 400 MG Tab PO SCH (07:38)
[2017-09-27] MEDS: Enoxaparin 40 MG/0.4 ML Syringe SUBCUT SCH (07:38)
[2017-09-27] MEDS: Miconazole 2% Top Powder 45 GM Container TOP SCH ×2 (07:39→20:23)
[2017-09-27] MEDS: Simvastatin 10 MG Tab PO SCH (19:31)
[2017-09-28] MEDS: Albuterol/Ipratropium 3.0-0.5 MG/3 ML Neb Soln NEB SCH ×4 (06:59→20:26)
[2017-09-28] MEDS: Arformoterol 15 MCG/2 ML Neb Soln NEB SCH ×2 (06:59→20:02)
[2017-09-28] MEDS: Potassium Chloride 20 MEQ Tab.ER PO SCH ×2 (07:13→17:12)
[2017-09-28] MEDS: Cyanocobalamin (Vitamin B12) 250 MCG Tab PO SCH (07:13)
[2017-09-28] MEDS: Cholecalciferol (Vitamin D3) 1,000 Unit Tab PO SCH (07:13)
[2017-09-28] MEDS: Enoxaparin 40 MG/0.4 ML Syringe SUBCUT SCH (07:13)
[2017-09-28] MEDS: Aspirin 81 MG Tab.EC PO SCH (07:14)
[2017-09-28] MEDS: Furosemide 40 MG Tab PO SCH ×2 (07:14→11:10)
[2017-09-28] MEDS: Calcium Citrate/Vitamin D3 315 MG-250 Unit Tab PO SCH (07:14)
[2017-09-28] MEDS: predniSONE 10 MG Tab PO SCH (07:14)
[2017-09-28] MEDS: Ascorbic Acid 500 MG Tab PO SCH (07:15)
[2017-09-28] MEDS: Magnesium Oxide 400 MG Tab PO SCH (07:15)
[2017-09-28] MEDS: Metoprolol Tartrate 50 MG Tab PO SCH ×2 (07:15→20:02)
[2017-09-28] MEDS: Oxybutynin 5 MG Tab PO SCH ×2 (07:15→20:03)
[2017-09-28] MEDS: Miconazole 2% Top Powder 45 GM Container TOP SCH ×2 (07:15→20:02)
[2017-09-28] MEDS: Omeprazole 20 MG Cap.CR PO SCH (07:19)
[2017-09-28] MEDS: Simvastatin 10 MG Tab PO SCH (20:03)
[2017-09-29] MEDS: Omeprazole 20 MG Cap.CR PO SCH (06:11)
[2017-09-29] MEDS: Albuterol/Ipratropium 3.0-0.5 MG/3 ML Neb Soln NEB SCH ×4 (06:59→19:49)
[2017-09-29] MEDS: Arformoterol 15 MCG/2 ML Neb Soln NEB SCH ×2 (06:59→19:49)
[2017-09-29] MEDS: Enoxaparin 40 MG/0.4 ML Syringe SUBCUT SCH (07:24)
[2017-09-29] MEDS: Potassium Chloride 20 MEQ Tab.ER PO SCH ×2 (07:24→17:39)
[2017-09-29] MEDS: Cholecalciferol (Vitamin D3) 1,000 Unit Tab PO SCH (07:25)
[2017-09-29] MEDS: predniSONE 10 MG Tab PO SCH (07:25)
[2017-09-29] MEDS: Magnesium Oxide 400 MG Tab PO SCH (07:25)
[2017-09-29] MEDS: Cyanocobalamin (Vitamin B12) 250 MCG Tab PO SCH (07:25)
[2017-09-29] MEDS: Calcium Citrate/Vitamin D3 315 MG-250 Unit Tab PO SCH (07:25)
[2017-09-29] MEDS: Ferrous Sulfate 325 MG Tab PO SCH (07:25)
[2017-09-29] MEDS: Ascorbic Acid 500 MG Tab PO SCH (07:25)
[2017-09-29] MEDS: Oxybutynin 5 MG Tab PO SCH ×2 (07:25→19:52)
[2017-09-29] MEDS: Furosemide 40 MG Tab PO SCH ×2 (07:25→12:48)
[2017-09-29] MEDS: Aspirin 81 MG Tab.EC PO SCH (07:25)
[2017-09-29] MEDS: Metoprolol Tartrate 50 MG Tab PO SCH ×2 (07:25→19:49)
[2017-09-29] MEDS: Miconazole 2% Top Powder 45 GM Container TOP SCH ×2 (07:26→19:49)
[2017-09-29] MEDS: Simvastatin 10 MG Tab PO SCH (19:52)
[2017-09-30] MEDS: Omeprazole 20 MG Cap.CR PO SCH (06:19)
[2017-09-30 07:05] LABS: CHLORIDE,CL 97 mmol/L (98-107); SODIUM,NA 138 mmol/L (136-145)
[2017-09-30] MEDS: Albuterol/Ipratropium 3.0-0.5 MG/3 ML Neb Soln NEB SCH ×4 (07:07→19:38)
[2017-09-30] MEDS: Arformoterol 15 MCG/2 ML Neb Soln NEB SCH ×2 (07:08→19:38)
[2017-09-30] MEDS: Aspirin 81 MG Tab.EC PO SCH (07:29)
[2017-09-30] MEDS: Cholecalciferol (Vitamin D3) 1,000 Unit Tab PO SCH (07:29)
[2017-09-30] MEDS: Potassium Chloride 20 MEQ Tab.ER PO SCH ×2 (07:29→17:10)
[2017-09-30] MEDS: Calcium Citrate/Vitamin D3 315 MG-250 Unit Tab PO SCH (07:29)
[2017-09-30] MEDS: Magnesium Oxide 400 MG Tab PO SCH (07:29)
[2017-09-30] MEDS: Cyanocobalamin (Vitamin B12) 250 MCG Tab PO SCH (07:29)
[2017-09-30] MEDS: Metoprolol Tartrate 50 MG Tab PO SCH ×2 (07:29→19:38)
[2017-09-30] MEDS: Ascorbic Acid 500 MG Tab PO SCH (07:30)
[2017-09-30] MEDS: predniSONE 10 MG Tab PO SCH (07:30)
[2017-09-30] MEDS: Enoxaparin 40 MG/0.4 ML Syringe SUBCUT SCH (07:30)
[2017-09-30] MEDS: Oxybutynin 5 MG Tab PO SCH ×2 (07:30→19:38)
[2017-09-30] MEDS: Miconazole 2% Top Powder 45 GM Container TOP SCH ×2 (07:30→19:38)
[2017-09-30] MEDS: Furosemide 40 MG Tab PO SCH ×2 (07:30→11:16)
--- NOTE | 2017-09-30 10:23 | PN ---
Progress Note for MIGUEL GARCIA Date: 09/30/2017 Room #: VM.202 SUBJECTIVE: A 77-year-old on swing bed, seen today for a skin exam. She does have some breakdown over her left buttock. The right buttock is intact. They have been placing Optifoam on it. She also has yeast in her groin that she has been getting Desenex for. This is improving. Her breathing is improving. She is on 10 mg of prednisone currently. She has no wheezing on exam. This should be tapered down further to 6 mg today. OBJECTIVE: Vital Signs: Her weight is 73.3 kg, pulse 87, blood pressure 134/76, temp 96.8, and O2 98% on 4 L. General: She is in no acute distress. Heart: Regular. Lungs: Again, clear. Abdomen: Not examined. Skin: Again, breakdown with at least 2 superficial open areas to the left buttock. There is minimal redness. No drainage. LABORATORY DATA: Lab work reviewed from yesterday did show her white count to be normal at 8.1, hemoglobin 9.6, and platelets 270. Sodium 138, potassium 3.6, chloride 97, bicarb 38, BUN 13, creatinine 0.7, glucose 104, and calcium 8.3. ASSESSMENT: 1. Skin breakdown over the left buttock. The patient spends all of her day and even sleeps in the chair. She has been encouraged to get into the bed and change positions, but she is very resistant to this. We will continue local wound cares. 2. Pneumonia and chronic obstructive pulmonary disease exacerbation, resolving. She has completed antibiotics. We will continue to taper prednisone further down to 6 mg. I believe, she was actually on 4 mg chronically for polymyalgia rheumatica, so that would be the goal dose on discharge. 3. Chronic hypoxic respiratory failure. She is on her home oxygen 4 L. 4. History of diastolic heart failure, stable, without exacerbation. 5. Remote history of peptic ulcer disease. 6. Chronic anemia. 7. Hypomagnesemia and hypokalemia, on oral replacement. 8. Deep vein thrombosis prophylaxis, on Lovenox. 9. Likely diabetes with hyperglycemia from steroids. Blood sugars are improved. We are not doing any treatments. We will discontinue Accu- Cheks. 10.Martina intertrigo. We will continue the Desenex powder. PLAN: The patient will continue on swing bed cares. Anticipate discharge potentially with Home Health later this week. Continue local wound cares. Continue her Lasix. Continue to taper down on steroids. MKA: 09/30/2017 09:12:39 MODL: 09/30/2017 09:33:41 /[id number]
[2017-09-30] MEDS: Sulfamethoxazole/Trimethoprim 800-160 MG Tab PO SCH ×2 (14:01→19:39)
[2017-09-30] MEDS: Simvastatin 10 MG Tab PO SCH (19:39)
[2017-09-30] MEDS: Acetaminophen 325 MG Tab PO PRN (19:42)
[2017-10-01] MEDS: Acetaminophen 325 MG Tab PO PRN (01:18)
[2017-10-01] MEDS: Omeprazole 20 MG Cap.CR PO SCH (06:37)
[2017-10-01 07:01] LABS: CHLORIDE,CL 94 mmol/L (98-107); SODIUM,NA 134 mmol/L (136-145)
[2017-10-01] MEDS: Potassium Chloride 20 MEQ Tab.ER PO SCH ×2 (07:17→17:22)
[2017-10-01] MEDS: Calcium Citrate/Vitamin D3 315 MG-250 Unit Tab PO SCH (07:17)
[2017-10-01] MEDS: predniSONE 1 MG Tab PO SCH (07:17)
[2017-10-01] MEDS: Cholecalciferol (Vitamin D3) 1,000 Unit Tab PO SCH (07:17)
[2017-10-01] MEDS: Ascorbic Acid 500 MG Tab PO SCH (07:17)
[2017-10-01] MEDS: Oxybutynin 5 MG Tab PO SCH (07:18)
[2017-10-01] MEDS: Metoprolol Tartrate 50 MG Tab PO SCH ×2 (07:18→20:22)
[2017-10-01] MEDS: Furosemide 40 MG Tab PO SCH ×2 (07:18→11:35)
[2017-10-01] MEDS: Miconazole 2% Top Powder 45 GM Container TOP SCH ×2 (07:18→20:19)
[2017-10-01] MEDS: Aspirin 81 MG Tab.EC PO SCH (07:18)
[2017-10-01] MEDS: Magnesium Oxide 400 MG Tab PO SCH (07:18)
[2017-10-01] MEDS: Cyanocobalamin (Vitamin B12) 250 MCG Tab PO SCH (07:18)
[2017-10-01] MEDS: Ferrous Sulfate 325 MG Tab PO SCH (07:18)
[2017-10-01] MEDS: Sulfamethoxazole/Trimethoprim 800-160 MG Tab PO SCH (07:18)
[2017-10-01] MEDS: Enoxaparin 40 MG/0.4 ML Syringe SUBCUT SCH (07:19)
[2017-10-01] MEDS: Albuterol/Ipratropium 3.0-0.5 MG/3 ML Neb Soln NEB SCH ×4 (07:22→20:20)
[2017-10-01] MEDS: Arformoterol 15 MCG/2 ML Neb Soln NEB SCH ×2 (07:23→20:18)
[2017-10-01] MEDS ORDERED: Sulfamethoxazole/Trimethoprim 800-160 MG Tab PO SCH (18:00)
[2017-10-01] MEDS: Simvastatin 10 MG Tab PO SCH (20:17)
[2017-10-01] MEDS: Nitrofurantoin Monohydrate/Macrocrystalline 100 MG Cap PO SCH (20:18)
[2017-10-02] MEDS: Omeprazole 20 MG Cap.CR PO SCH (06:24)
[2017-10-02] MEDS: Arformoterol 15 MCG/2 ML Neb Soln NEB SCH ×2 (07:07→19:45)
[2017-10-02] MEDS: Albuterol/Ipratropium 3.0-0.5 MG/3 ML Neb Soln NEB SCH ×4 (07:08→19:38)
[2017-10-02 07:12] LABS: CHLORIDE,CL 96 mmol/L (98-107); SODIUM,NA 133 mmol/L (136-145)
[2017-10-02] MEDS: Potassium Chloride 20 MEQ Tab.ER PO SCH ×2 (07:34→17:43)
[2017-10-02] MEDS: Enoxaparin 40 MG/0.4 ML Syringe SUBCUT SCH (07:34)
[2017-10-02] MEDS: predniSONE 1 MG Tab PO SCH (07:34)
[2017-10-02] MEDS: Calcium Citrate/Vitamin D3 315 MG-250 Unit Tab PO SCH (07:35)
[2017-10-02] MEDS: Cyanocobalamin (Vitamin B12) 250 MCG Tab PO SCH (07:35)
[2017-10-02] MEDS: Aspirin 81 MG Tab.EC PO SCH (07:35)
[2017-10-02] MEDS: Furosemide 40 MG Tab PO SCH ×2 (07:35→11:33)
[2017-10-02] MEDS: Nitrofurantoin Monohydrate/Macrocrystalline 100 MG Cap PO SCH ×2 (07:35→19:39)
[2017-10-02] MEDS: Miconazole 2% Top Powder 45 GM Container TOP SCH ×2 (07:35→19:40)
[2017-10-02] MEDS: Ascorbic Acid 500 MG Tab PO SCH (07:35)
[2017-10-02] MEDS: Metoprolol Tartrate 50 MG Tab PO SCH ×2 (07:35→19:41)
[2017-10-02] MEDS: Cholecalciferol (Vitamin D3) 1,000 Unit Tab PO SCH (07:35)
[2017-10-02] MEDS: Magnesium Oxide 400 MG Tab PO SCH (07:35)
--- NOTE | 2017-10-02 18:45 | PN ---
Progress Note for MIGUEL GARCIA Date: 10/02/2017 Room #: VM.202 SUBJECTIVE: This is a 77-year-old on swing bed for further therapies after an acute stay for pneumonia and COPD exacerbation. The patient was having some trouble with urinary leakage. She had already been on Ditropan. We checked the UA, it was positive and then her bladder scan was showing over 500. She has been straight cathed about 3 times, now for 400 to 500. This morning, her cath was less than 200. We have also held her Ditropan. She was not having any fevers, but had a mild elevation in white count. We then started Bactrim, but yesterday she just felt ill and sick to her stomach. It was felt that it was the Bactrim, so we placed her on Macrobid and she feels better today. Otherwise, her coughing is better. Her breathing is okay. She has been titrated down to 3 L, even though she used 4 L at home. OBJECTIVE: Vital Signs: Her temperature 98.5, pulse 83, blood pressure 152/63, respiratory rate 18, O2 of 96 on 3 L. General: She is in no acute distress. Heart: Regular rate and rhythm with murmur. Lungs: Sounds are clear to auscultation bilaterally without crackles or wheezes. Abdomen: Positive bowel sounds. Soft and nontender. Extremities: Some bruising noted and 1+ ankle edema. Mental Status: She is alert. She is orientated x3. LABORATORY DATA: Lab work reviewed this morning does show her to have a white count improved to 9.7, hemoglobin 8.8, platelets 250. Sodium 133, potassium 3.9, chloride 96, bicarb 36, BUN 10, and creatinine 0.9. ASSESSMENT AND PLAN: 1. Recent pneumonia with chronic obstructive pulmonary disease exacerbation, resolved. She is on no antibiotics for her lungs. We will taper her prednisone down to 5 mg daily. She was on 4 mg chronically for polymyalgia. 2. Chronic hypoxic respiratory failure, doing well on 3 L. 3. Chronic diastolic heart failure, stable without exacerbation. She will continue her oral Lasix, currently at 40 mg twice daily. 4. History of peptic ulcer disease. She is on omeprazole. 5. Chronic anemia. Hemoglobin went down slightly. We will recheck again tomorrow. She did also have some abnormal cells including blast cells, but this has been reviewed in the past even a couple of years ago. I do not see any significant change. 6. DVT prophylaxis. She remains on Lovenox. If any bleeding problems, we will discontinue this. 7. Urinary retention likely due to her medications. We will hold the Ditropan, straight cath if needed. 8. Urinary tract infection. Culture is pending. She is on Macrobid. Stop dates are in place. 9. Martina intertrigo, improved with Desenex powder. 10.Deconditioning. She is working with therapy. We had a discussion about the possibility of going over to the [facility] and at this point, the patient is agreeable that if needed she would go to the Care Center. She understands that she is not well enough currently to go home. MKA: 10/02/2017 17:57:28 MODL: 10/02/2017 18:40:41 /[id number]
[2017-10-02] MEDS: Simvastatin 10 MG Tab PO SCH (19:40)
[2017-10-03] MEDS: Omeprazole 20 MG Cap.CR PO SCH (06:18)
[2017-10-03] MEDS: Arformoterol 15 MCG/2 ML Neb Soln NEB SCH ×2 (06:57→20:14)
[2017-10-03] MEDS: Albuterol/Ipratropium 3.0-0.5 MG/3 ML Neb Soln NEB SCH ×4 (06:57→20:13)
[2017-10-03] MEDS: Furosemide 40 MG Tab PO SCH ×2 (07:45→12:31)
[2017-10-03] MEDS: Miconazole 2% Top Powder 45 GM Container TOP SCH ×2 (07:45→22:00)
[2017-10-03] MEDS: Magnesium Oxide 400 MG Tab PO SCH (07:45)
[2017-10-03] MEDS: Aspirin 81 MG Tab.EC PO SCH (07:45)
[2017-10-03] MEDS: Enoxaparin 40 MG/0.4 ML Syringe SUBCUT SCH (07:45)
[2017-10-03] MEDS: predniSONE 5 MG Tab PO SCH (07:46)
[2017-10-03] MEDS: Cholecalciferol (Vitamin D3) 1,000 Unit Tab PO SCH (07:46)
[2017-10-03] MEDS: Metoprolol Tartrate 50 MG Tab PO SCH ×2 (07:46→20:10)
[2017-10-03] MEDS: Ascorbic Acid 500 MG Tab PO SCH (07:46)
[2017-10-03] MEDS: Calcium Citrate/Vitamin D3 315 MG-250 Unit Tab PO SCH (07:46)
[2017-10-03] MEDS: Potassium Chloride 20 MEQ Tab.ER PO SCH ×2 (07:46→17:09)
[2017-10-03] MEDS: Cyanocobalamin (Vitamin B12) 250 MCG Tab PO SCH (07:46)
[2017-10-03] MEDS: Nitrofurantoin Monohydrate/Macrocrystalline 100 MG Cap PO SCH ×2 (07:46→20:13)
[2017-10-03] MEDS: Ferrous Sulfate 325 MG Tab PO SCH (07:46)
[2017-10-03] MEDS: Simvastatin 10 MG Tab PO SCH (20:13)
[2017-10-04] MEDS: Omeprazole 20 MG Cap.CR PO SCH (06:13)
[2017-10-04] MEDS: Albuterol/Ipratropium 3.0-0.5 MG/3 ML Neb Soln NEB SCH ×4 (06:52→20:20)
[2017-10-04] MEDS: Arformoterol 15 MCG/2 ML Neb Soln NEB SCH ×2 (06:52→20:20)
[2017-10-04] MEDS: Enoxaparin 40 MG/0.4 ML Syringe SUBCUT SCH (07:42)
[2017-10-04] MEDS: Cyanocobalamin (Vitamin B12) 250 MCG Tab PO SCH (07:42)
[2017-10-04] MEDS: predniSONE 5 MG Tab PO SCH (07:43)
[2017-10-04] MEDS: Aspirin 81 MG Tab.EC PO SCH (07:43)
[2017-10-04] MEDS: Furosemide 40 MG Tab PO SCH ×2 (07:43→11:29)
[2017-10-04] MEDS: Magnesium Oxide 400 MG Tab PO SCH (07:43)
[2017-10-04] MEDS: Metoprolol Tartrate 50 MG Tab PO SCH ×2 (07:43→20:16)
[2017-10-04] MEDS: Calcium Citrate/Vitamin D3 315 MG-250 Unit Tab PO SCH (07:43)
[2017-10-04] MEDS: Ascorbic Acid 500 MG Tab PO SCH (07:43)
[2017-10-04] MEDS: Potassium Chloride 20 MEQ Tab.ER PO SCH ×2 (07:43→17:41)
[2017-10-04] MEDS: Cholecalciferol (Vitamin D3) 1,000 Unit Tab PO SCH (07:43)
[2017-10-04] MEDS: Miconazole 2% Top Powder 45 GM Container TOP SCH ×2 (07:44→20:22)
[2017-10-04 07:47] LABS: CHLORIDE,CL 96 mmol/L (98-107); SODIUM,NA 137 mmol/L (136-145)
[2017-10-04] MEDS: Simvastatin 10 MG Tab PO SCH (20:16)
[2017-10-05] MEDS: Omeprazole 20 MG Cap.CR PO SCH (06:38)
[2017-10-05] MEDS: Albuterol/Ipratropium 3.0-0.5 MG/3 ML Neb Soln NEB SCH ×4 (06:52→19:46)
[2017-10-05] MEDS: Arformoterol 15 MCG/2 ML Neb Soln NEB SCH ×2 (06:52→19:46)
[2017-10-05] MEDS: Ascorbic Acid 500 MG Tab PO SCH (07:16)
[2017-10-05] MEDS: Enoxaparin 40 MG/0.4 ML Syringe SUBCUT SCH (07:16)
[2017-10-05] MEDS: Furosemide 40 MG Tab PO SCH ×2 (07:16→13:06)
[2017-10-05] MEDS: Calcium Citrate/Vitamin D3 315 MG-250 Unit Tab PO SCH (07:16)
[2017-10-05] MEDS: Aspirin 81 MG Tab.EC PO SCH (07:16)
[2017-10-05] MEDS: Magnesium Oxide 400 MG Tab PO SCH (07:16)
[2017-10-05] MEDS: Cyanocobalamin (Vitamin B12) 250 MCG Tab PO SCH (07:16)
[2017-10-05] MEDS: Metoprolol Tartrate 50 MG Tab PO SCH ×2 (07:17→19:44)
[2017-10-05] MEDS: Potassium Chloride 20 MEQ Tab.ER PO SCH ×2 (07:17→17:27)
[2017-10-05] MEDS: Miconazole 2% Top Powder 45 GM Container TOP SCH ×2 (07:17→19:52)
[2017-10-05] MEDS: predniSONE 5 MG Tab PO SCH (07:17)
[2017-10-05] MEDS: Cholecalciferol (Vitamin D3) 1,000 Unit Tab PO SCH (07:17)
[2017-10-05] MEDS: Simvastatin 10 MG Tab PO SCH (19:44)
[2017-10-06] MEDS: Omeprazole 20 MG Cap.CR PO SCH (06:30)
[2017-10-06] MEDS: Albuterol/Ipratropium 3.0-0.5 MG/3 ML Neb Soln NEB SCH ×4 (07:10→19:41)
[2017-10-06] MEDS: Arformoterol 15 MCG/2 ML Neb Soln NEB SCH ×2 (07:10→19:41)
[2017-10-06] MEDS: Ascorbic Acid 500 MG Tab PO SCH (07:40)
[2017-10-06] MEDS: Cyanocobalamin (Vitamin B12) 250 MCG Tab PO SCH (07:40)
[2017-10-06] MEDS: Ferrous Sulfate 325 MG Tab PO SCH (07:40)
[2017-10-06] MEDS: Magnesium Oxide 400 MG Tab PO SCH (07:40)
[2017-10-06] MEDS: Enoxaparin 40 MG/0.4 ML Syringe SUBCUT SCH (07:40)
[2017-10-06] MEDS: predniSONE 5 MG Tab PO SCH (07:40)
[2017-10-06] MEDS: Cholecalciferol (Vitamin D3) 1,000 Unit Tab PO SCH (07:40)
[2017-10-06] MEDS: Calcium Citrate/Vitamin D3 315 MG-250 Unit Tab PO SCH (07:41)
[2017-10-06] MEDS: Metoprolol Tartrate 50 MG Tab PO SCH ×2 (07:41→19:40)
[2017-10-06] MEDS: Potassium Chloride 20 MEQ Tab.ER PO SCH ×2 (07:41→18:20)
[2017-10-06] MEDS: Aspirin 81 MG Tab.EC PO SCH (07:41)
[2017-10-06] MEDS: Miconazole 2% Top Powder 45 GM Container TOP SCH ×2 (07:41→19:45)
[2017-10-06] MEDS: Furosemide 40 MG Tab PO SCH ×2 (07:41→12:08)
[2017-10-06] MEDS: Simvastatin 10 MG Tab PO SCH (19:39)
[2017-10-07] MEDS: Acetaminophen 325 MG Tab PO PRN (00:24)
[2017-10-07] MEDS: Omeprazole 20 MG Cap.CR PO SCH (06:38)
[2017-10-07 06:42] VITALS: BP 119/71
[2017-10-07] MEDS: Albuterol/Ipratropium 3.0-0.5 MG/3 ML Neb Soln NEB SCH ×2 (07:05→11:00)
[2017-10-07] MEDS: Arformoterol 15 MCG/2 ML Neb Soln NEB SCH (07:05)
[2017-10-07] MEDS: Ascorbic Acid 500 MG Tab PO SCH (07:40)
[2017-10-07] MEDS: Magnesium Oxide 400 MG Tab PO SCH (07:40)
[2017-10-07] MEDS: Aspirin 81 MG Tab.EC PO SCH (07:40)
[2017-10-07] MEDS: Miconazole 2% Top Powder 45 GM Container TOP SCH (07:40)
[2017-10-07] MEDS: Cyanocobalamin (Vitamin B12) 250 MCG Tab PO SCH (07:40)
[2017-10-07] MEDS: Furosemide 40 MG Tab PO SCH ×2 (07:40→13:04)
[2017-10-07] MEDS: Calcium Citrate/Vitamin D3 315 MG-250 Unit Tab PO SCH (07:40)
[2017-10-07] MEDS: predniSONE 5 MG Tab PO SCH (07:41)
[2017-10-07] MEDS: Metoprolol Tartrate 50 MG Tab PO SCH (07:41)
[2017-10-07] MEDS: Cholecalciferol (Vitamin D3) 1,000 Unit Tab PO SCH (07:41)
[2017-10-07] MEDS: Potassium Chloride 20 MEQ Tab.ER PO SCH (07:41)
[2017-10-07] MEDS: Enoxaparin 40 MG/0.4 ML Syringe SUBCUT SCH (07:41)
--- NOTE | 2017-10-07 10:38 | PCM.DCSUM1 ---
Discharge Summary - Hospital Course Brief History: Mrs. Ortega is a 77 yo female who was admitted to swing bed for strengthening after she had an acute admission for pneumonia and COPD exacerbation. - Discharge Data Discharge Date: 10/07/17 Discharge Disposition: DC/Tfer to SNF 03 Condition: Good - Discharge Diagnosis/Problem(s) (1) Generalized weakness SNOMED Code(s): 49914876 ICD Code: R53.1 - WEAKNESS Status: Acute Current Visit: Yes Problem Details: This is related to her acute admission as well as her underlying comorbidities. Physical therapy has been working with her. Although she has made some gains, it is not felt she will be prepared for dismissal home any time soon. Therefore, discussions occurred about dismissal to the [facility] and she is in agreement with this. A bed is open for today and she will be dismissed to the [facility] in stable condition. (2) CAP (community acquired pneumonia) SNOMED Code(s): 834673769 ICD Code: J18.9 - PNEUMONIA, UNSPECIFIED ORGANISM Status: Resolved Priority: Medium Current Visit: No Problem Details: She has completed her antibiotics for this without any issues. She is back to her usual respiratory status. Qualifiers: Laterality: right Lung location: lower lobe of lung Qualified Code(s): J18.1 - Lobar pneumonia, unspecified organism (3) COPD exacerbation SNOMED Code(s): 938338254 ICD Code: J44.1 - CHRONIC OBSTRUCTIVE PULMONARY DISEASE W (ACUTE) EXACERBATION Status: Resolved Priority: Medium Current Visit: No Problem Details: She has been tapered to 5 mg without any issues. She is on prednisone chronically and can remain at 5 mg for now until follow-up with her PCP at the [facility]. She is at her baseline respiratory status and will be continued on her usual medications. (4) CHF (congestive heart failure) SNOMED Code(s): 53674291 ICD Code: I50.9 - HEART FAILURE, UNSPECIFIED Status: Chronic Current Visit: No Problem Details: She did not have any trouble with any exacerbation of this. her home medications were continued. Qualifiers: Heart failure type: diastolic Heart failure chronicity: chronic Qualified Code(s): I50.32 - Chronic diastolic (congestive) heart failure (5) Respiratory failure with hypoxia SNOMED Code(s): 18443200281200546 ICD Code: J96.91 - RESPIRATORY FAILURE, UNSPECIFIED WITH HYPOXIA Status: Chronic Priority: High Current Visit: No Problem Details: She is on 3 L via nasal cannula without any issues, which is actually less than her previous home requirements per my understanding. She is at baseline. Qualifiers: Chronicity: acute on chronic Qualified Code(s): J96.21 - Acute and chronic respiratory failure with hypoxia (6) UTI (urinary tract infection) SNOMED Code(s): 04864343 ICD Code: N39.0 - URINARY TRACT INFECTION, SITE NOT SPECIFIED Status: Resolved Current Visit: No Problem Details: Patient was diagnosed and treated for a UTI during her swing bed stay. Her culture actually returned as mixed deepa. She has done fine after her macrobid was completed. Qualifiers: Urinary tract infection type: acute cystitis Hematuria presence: with hematuria Qualified Code(s): N30.01 - Acute cystitis with hematuria (7) Chronic anemia SNOMED Code(s): 474357982 ICD Code: D64.9 - ANEMIA, UNSPECIFIED Status: Chronic Current Visit: No Problem Details: Hemoglobin has been monitored and did drop slightly at one point but then was stable on follow-up. No urgent evaluation was done for this. It can be followed as an outpatient. (8) OAB (overactive bladder) SNOMED Code(s): 119737922 ICD Code: N32.81 - OVERACTIVE BLADDER Status: Chronic Current Visit: No Problem Details: Patient had been on ditropan but then developed urinary retention and required straight catheterizations. The ditropan was stopped and this has now resolved. She has not needed any straight catheterizations for >3 days. (9) PMR (polymyalgia rheumatica) SNOMED Code(s): 05887296 ICD Code: M35.3 - POLYMYALGIA RHEUMATICA Status: Chronic Current Visit: No Problem Details: Her previous dose of prednisone for this was 4 mg. She is currently on 5 mg and doing well. It can be tapered back to 4 in the future as her PCP sees fit. She is otherwise stable. (10) Peptic ulcer disease SNOMED Code(s): 65758088 ICD Code: K27.9 - PEPTIC ULC, SITE UNSP, UNSP AC OR CHR, W/O HEMOR OR PERF Status: Chronic Current Visit: Yes Problem Details: Home medications were continued without incident. (11) Candidal intertrigo SNOMED Code(s): 955722819 ICD Code: B37.2 - CANDIDIASIS OF SKIN AND NAIL Status: Acute Current Visit: Yes Problem Details: This has been improving with desenex powder without any incident. - Patient Summary/Data Operative Procedure(s) Performed: none Complications: UTI, stephen Consults: Consultations 09/15/17 11:33 OT Evaluation and Treatment [CONS] Routine PT Evaluation and Treatment [CONS] Routine Labs Pending at D/C: none Recommended Follow-up Testing/Procedures: as per usual routine Planned Operative Procedure(s) after DC: none Hospital Course: All of her acute problems resolved nicely without any issue. She completed her medication courses. She did have some improvement in strength but it was felt she was quite distant from being able to return home. Therefore, transition to [facility] was discussed and she was agreeable. She will be discharged there today in stable condition. - Patient Instructions Diet: Heart Healthy Diet Activity: As Tolerated - Discharge Plan Home Medications: Home Meds Budesonide/Formoterol [Symbicort 160-4.5 MCG] 2 puff INH BID 12/15/13 [History] Calcium Citrate/Vitamin D3 [Calcium Citrate with D Tablet] 1 tab PO DAILY [History] Cholecalciferol (Vitamin D3) [Vitamin D3] 2,000 unit PO DAILY 12/15/13 [History] Multivitamin [Multivitamins] 1 cap PO DAILY 12/15/13 [History] Ascorbate Calcium [Vitamin C] 500 mg PO DAILY 01/25/14 [History] Albuterol [Proventil Neb Soln] 2.5 mg NEB Q4H PRN 11/28/15 [History] Albuterol [Proventil Neb Soln] 2.5 mg NEB QID 11/28/15 [History] Aspirin 81 mg PO DAILY 11/28/15 [History] Cyanocobalamin (Vitamin B-12) [B-12] 500 mcg PO DAILY 11/28/15 [History] Furosemide 40 mg PO BID@0800,1200 11/28/15 [History] Magnesium Oxide [Magnesium] 400 mg PO DAILY 11/28/15 [History] Omeprazole 20 mg PO DAILY 11/28/15 [History] Simvastatin [Zocor] 10 mg PO BEDTIME 11/28/15 [History] Ferrous Gluconate 324 mg PO Q2D 02/19/16 [History] Metoprolol Tartrate [Lopressor] 50 mg PO BID tablet 02/25/16 [Rx] Tiotropium [Spiriva Handihaler] 1 cap INH DAILY 02/27/16 [History] Acetaminophen [Tylenol] 650 mg PO Q4H PRN tablet 09/15/17 [Rx] Miconazole [Desenex 2%] 1 gm TOP BID cont 10/07/17 [Rx] Potassium Chloride [Klor-Con M20] 40 meq PO BIDMEALS tab.er 10/07/17 [Rx] predniSONE 5 mg PO DAILY tablet 10/07/17 [Rx] - Discharge Summary/Plan Comment DC Time >30 min.: No - General Info Date of Service: 10/07/17 Subjective Update: Patient reports she is feeling well, other than that she is still weak. She denies any new concerns today. She is ready for dismissal to the care center. - Review of Systems General: Reports: No Symptoms HEENT: Reports: No Symptoms Pulmonary: Reports: No Symptoms Cardiovascular: Reports: No Symptoms Gastrointestinal: Reports: No Symptoms Genitourinary: Reports: No Symptoms Musculoskeletal: Reports: No Symptoms Skin: Reports: No Symptoms Neurological: Reports: No Symptoms - Patient Data Vitals - Most Recent: Last Vital Signs Temp 36.6 C 10/07/17 06:40 Pulse 68 10/07/17 07:41 Resp 19 10/07/17 06:40 BP 119/71 10/07/17 07:41 Pulse Ox 96 10/07/17 07:11 Weight - Most Recent: 4.672 kg I&O - Last 24 hours: Intake & Output 10/06/17 10/07/17 10/07/17 22:59 06:59 14:59 Intake Total 120 Balance 120 Med Orders - Current: Current Medications Acetaminophen (Tylenol) 650 mg PO Q4H PRN PRN Reason: Pain (Mild 1-3)/fever Last Admin: 10/07/17 00:24 Dose: 650 mg Albuterol (Proventil Neb Soln) 2.5 mg NEB Q4HRRT PRN PRN Reason: Shortness of Breath Last Admin: 10/02/17 05:08 Dose: 2.5 mg Albuterol/Ipratropium (Duoneb 3.0-0.5 Mg/3 Ml) 3 ml NEB QIDRT [facility] Last Admin: 10/07/17 07:05 Dose: 3 ml Arformoterol Tartrate (Brovana) 15 mcg NEB BIDRT [facility] Last Admin: 10/07/17 07:05 Dose: 15 mcg Ascorbic Acid (Vitamin C) 500 mg PO DAILY [facility] Last Admin: 10/07/17 07:40 Dose: 500 mg Aspirin (Halfprin) 81 mg PO DAILY [facility] Last Admin: 10/07/17 07:40 Dose: 81 mg Calcium Citrate (Calcium Citrate + D) 1 tab PO DAILY [facility] Last Admin: 10/07/17 07:40 Dose: 1 tab Cholecalciferol (Vitamin D3) 2,000 units PO DAILY [facility] Last Admin: 10/07/17 07:41 Dose: 2,000 units Cyanocobalamin (Vitamin B12) 500 mcg PO DAILY [facility] Last Admin: 10/07/17 07:40 Dose: 500 mcg Enoxaparin Sodium (Lovenox) 40 mg SUBCUT DAILY [facility] Last Admin: 10/07/17 07:41 Dose: 40 mg Ferrous Sulfate (Ferrous Sulfate) 325 mg PO MoWeFr@0800 [facility] Last Admin: 10/06/17 07:40 Dose: 325 mg Furosemide (Lasix) 40 mg PO BID@0800,1200 [facility] Last Admin: 10/07/17 07:40 Dose: 40 mg Magnesium Oxide (Magnesium Oxide) 400 mg PO DAILY [facility] Last Admin: 10/07/17 07:40 Dose: 400 mg Metoprolol Tartrate (Lopressor) 50 mg PO BID [facility] Last Admin: 10/07/17 07:41 Dose: 50 mg Miconazole (Desenex 2%) 1 gm TOP BID [facility] Last Admin: 10/07/17 07:40 Dose: 1 applic Omeprazole (Omeprazole) 20 mg PO DAILY@0700 [facility] Last Admin: 10/07/17 06:38 Dose: 20 mg Potassium Chloride (Klor-Con M20) 40 meq PO BIDMEALS [facility] Last Admin: 10/07/17 07:41 Dose: 40 meq Prednisone (Prednisone) 5 mg PO DAILY [facility] Last Admin: 10/07/17 07:41 Dose: 5 mg Simvastatin (Zocor) 10 mg PO BEDTIME [facility] Last Admin: 10/06/17 19:39 Dose: 10 mg Discontinued Medications Azithromycin (Zithromax) 500 mg PO DAILY@0700 [facility] Stop: 09/17/17 07:01 Last Admin: 09/17/17 06:40 Dose: Not Given Furosemide (Lasix) 40 mg PO BID@0800,1200 [facility] Insulin Detemir (Levemir) 6 unit SUBCUT BEDTIME [facility] Last Admin: 09/18/17 20:24 Dose: 6 units Insulin Detemir (Levemir) 4 unit SUBCUT BEDTIME [facility] Last Admin: 09/21/17 20:12 Dose: 4 units Nitrofurantoin Macrocrystals (Macrobid) 100 mg PO BID [facility] Stop: 10/03/17 23:00 Last Admin: 10/03/17 20:13 Dose: 100 mg Oxybutynin Chloride (Oxybutynin) 5 mg PO BID [facility] Last Admin: 10/01/17 07:18 Dose: 5 mg Potassium Chloride (Klor-Con M20) 20 meq PO DAILY [facility] Last Admin: 09/19/17 07:43 Dose: 20 meq Potassium Chloride (Klor-Con M20) 20 meq PO BID [facility] Last Admin: 09/23/17 09:45 Dose: Not Given Potassium Chloride (Klor-Con M20) 20 meq PO TIDMEALS [facility] Last Admin: 09/25/17 21:15 Dose: Not Given Prednisone (Prednisone) 20 mg PO BIDMEALS [facility] Last Admin: 09/22/17 07:59 Dose: 20 mg Prednisone (Prednisone) 20 mg PO DAILY [facility] Last Admin: 09/25/17 08:03 Dose: 20 mg Prednisone (Prednisone) 15 mg PO DAILY [facility] Last Admin: 09/25/17 08:25 Dose: Not Given Prednisone (Prednisone) 10 mg PO DAILY [facility] Last Admin: 09/30/17 07:30 Dose: 10 mg Prednisone (Prednisone) 6 mg PO DAILY [facility] Last Admin: 10/02/17 07:34 Dose: 6 mg Trimethoprim/Sulfamethoxazole (Septra Ds) 1 tab PO BID [facility] Stop: 10/04/17 23:00 Last Admin: 10/01/17 07:18 Dose: 1 tab Trimethoprim/Sulfamethoxazole (Septra Ds) 1 tab PO BIDMEALS [facility] Stop: 10/04/17 18:00 - Exam General: Reports: Alert, Cooperative, No Acute Distress HEENT: Reports: Pupils Equal, Pupils Reactive, Mucous Membr. Moist/[place] Neck: Reports: Supple, Trachea Midline, No Thyromegaly. Denies: Lymphadenopathy Lungs: Reports: Clear to Auscultation, Normal Respiratory Effort Cardiovascular: Reports: Regular Rate, Regular Rhythm, No Murmurs GI/Abdominal Exam: Normal Bowel Sounds, Soft, Non-Tender, No Organomegaly, No Distention, No Mass Extremities: Normal Inspection, Non-Tender, No Pedal Edema, Normal Capillary Refill Skin: Reports: Warm, Dry *Q Meaningful Use (DIS) - VTE *Q VTE Criteria *Q: - Stroke *Q Stroke Criteria *Q: - AMI *Q AMI Criteria *Q:
== END 2017-10-07 14:05 | DRG 947 ==
LOC: VM.MS 11:00
PROVIDERS: ADMIT Family Medicine; ATTEND Internal Medicine
DX: R53.1 Weakness (principal); J18.9 Pneumonia, unspecified organism; J96.21 Acute and chronic respiratory failure with hypoxia; J44.0 Chronic obstructive pulmonary disease with (acute) lower respiratory infection; J44.1 Chronic obstructive pulmonary disease with (acute) exacerbation; I50.32 Chronic diastolic (congestive) heart failure; N30.01 Acute cystitis with hematuria; B37.49 Other urogenital candidiasis; Z66 Do not resuscitate; I11.0 Hypertensive heart disease with heart failure; I25.10 Atherosclerotic heart disease of native coronary artery without angina pectoris; E78.00 Pure hypercholesterolemia, unspecified; K21.9 Gastro-esophageal reflux disease without esophagitis; D64.9 Anemia, unspecified; N32.81 Overactive bladder; M35.3 Polymyalgia rheumatica; K27.9 Peptic ulcer, site unspecified, unspecified as acute or chronic, without hemorrhage or perforation; R33.0 Drug induced retention of urine; T44.3X5A Adverse effect of other parasympatholytics [anticholinergics and antimuscarinics] and spasmolytics, initial encounter; B37.2 Candidiasis of skin and nail; E11.65 Type 2 diabetes mellitus with hyperglycemia; T38.0X5A Adverse effect of glucocorticoids and synthetic analogues, initial encounter; S31.829A Unspecified open wound of left buttock, initial encounter; E83.42 Hypomagnesemia; E87.6 Hypokalemia; Z79.51 Long term (current) use of inhaled steroids; Z79.899 Other long term (current) drug therapy; Z79.52 Long term (current) use of systemic steroids; Z79.82 Long term (current) use of aspirin; Z87.891 Personal history of nicotine dependence; Z99.81 Dependence on supplemental oxygen
CPT/HCPCS: 36415; 51701; 51798; 80048; 81001; 82962; 83735; 83880; 85025; 87086; 94640; 94760; 97110-GP; 97116-GP; 97530-GP; 97535-GO; A9270-GY; J1650; J1815-GY; J7620-GY

== ENCOUNTER 2018-03-07 11:59 | Inpatient (IN) | payer MEDICARE, OTHER ==
[2018-03-07 13:10] LABS: CHLORIDE,CL 95 mmol/L (98-107); SODIUM,NA 132 mmol/L (136-145)
[2018-03-07 13:11] LABS: ANION GAP 6.9 mmol/L (10-20)
--- NOTE | 2018-03-07 13:26 | EDM.PDOC ---
ED HPI GENERAL MEDICAL PROBLEM - General Chief Complaint: General Stated Complaint: ER Time Seen by Provider: 03/07/18 12:04 Source of Information: Reports: Patient, EMS Notes Reviewed, Family, RN, RN Notes Reviewed History Limitations: Reports: No Limitations - History of Present Illness INITIAL COMMENTS - FREE TEXT/NARRATIVE: EMS called to patients home for weakness and confusion. EMS called by Hospice nurse. Patient had one onset of confusion this AM. Patient was started on abx therapy yesterday afternoon for bladder infection. Patient is chronically on oxygen at home. Patient has one bout of chills [employer]. Patient has a chronic tremor. Otherwise no other concerns - Related Data Allergies Allergy/AdvReac Type Severity Reaction Status Date / Time No Known Drug Allergies Allergy Other Verified 03/07/18 12:29 seasonal Allergy Itching Uncoded 02/19/16 17:46 Home Meds: Home Meds Budesonide/Formoterol [Symbicort 160-4.5 MCG] 2 puff INH BID 12/15/13 [History] Calcium Citrate/Vitamin D3 [Calcium Citrate with D Tablet] 1 tab PO DAILY [History] Cholecalciferol (Vitamin D3) [Vitamin D3] 2,000 unit PO DAILY 12/15/13 [History] Multivitamin [Multivitamins] 1 cap PO DAILY 12/15/13 [History] Ascorbate Calcium [Vitamin C] 500 mg PO DAILY 01/25/14 [History] Albuterol [Proventil Neb Soln] 2.5 mg NEB Q4H PRN 11/28/15 [History] Albuterol [Proventil Neb Soln] 2.5 mg NEB QID 11/28/15 [History] Aspirin 81 mg PO DAILY 11/28/15 [History] Cyanocobalamin (Vitamin B-12) [B-12] 500 mcg PO DAILY 11/28/15 [History] Furosemide 40 mg PO BID@0800,1200 11/28/15 [History] Magnesium Oxide [Magnesium] 400 mg PO DAILY 11/28/15 [History] Omeprazole 20 mg PO DAILY 11/28/15 [History] Simvastatin [Zocor] 10 mg PO BEDTIME 11/28/15 [History] Ferrous Gluconate 324 mg PO Q2D 02/19/16 [History] Metoprolol Tartrate [Lopressor] 50 mg PO BID tablet 07/31/16 [Rx] Tiotropium [Spiriva Handihaler] 1 cap INH DAILY 02/27/16 [History] Acetaminophen [Tylenol] 650 mg PO Q4H PRN tablet 09/15/17 [Rx] Miconazole [Desenex 2%] 1 gm TOP BID cont 10/07/17 [Rx] Potassium Chloride [Klor-Con M20] 40 meq PO BIDMEALS tab.er 10/07/17 [Rx] predniSONE 5 mg PO DAILY tablet 10/07/17 [Rx] Arformoterol [Brovana] 1 puff INH BID 03/07/18 [History] Budesonide [Pulmicort] 0.5 mg IH BID 03/07/18 [History] Oxybutynin Chloride [Ditropan Xl] 2.5 mg PO BEDTIME 03/07/18 [History] Past Medical History HEENT History: Reports: Cataract, Hard of Hearing Cardiovascular History: Reports: CAD, Heart Failure, High Cholesterol, Hypertension, SOB on Exertion Respiratory History: Reports: COPD, SOB Gastrointestinal History: Reports: Diverticulosis, GERD [employer] History: Reports: Ectopic Musculoskeletal History: Reports: Arthritis - Past Surgical History HEENT Surgical History: Reports: Cataract Surgery GI Surgical History: Reports: Appendectomy, Cholecystectomy, Colonoscopy, Hernia , Abdominal Social & Family History - Family History Family Medical History: Noncontributory Neurological: Reports: Dementia Oncologic: Reports: Other (See Below) - Tobacco Use Smoking Status *Q: Unknown Ever Smoked - Caffeine Use Caffeine Use: Reports: None - Living Situation & Occupation Living situation: Reports: , with Significant Other Occupation: Retired ED ROS GENERAL - Review of Systems Review Of Systems: See Below Constitutional: Reports: Chills, Weakness. Denies: Fever Respiratory: Reports: Shortness of Breath (chronic, not any worse today). Denies: Cough Cardiovascular: Denies: Chest Pain, Palpitations GI/Abdominal: Reports: Nausea. Denies: Abdominal Pain, Vomiting : Reports: Other (currently being treated for a UTI per PCP) Skin: Reports: No Symptoms Neurological: Reports: No Symptoms. Denies: Dizziness, Headache ED EXAM, GENERAL - Physical Exam Exam: See Below Free Text/Narrative:: " I just dont feel good." Exam Limited By: No Limitations General Appearance: Alert, No Apparent Distress Respiratory/Chest: No Respiratory Distress, Crackles Cardiovascular: Regular Rate, Rhythm Peripheral Pulses: 2+: Radial (L), Radial (R) GI/Abdominal: Soft, Non-Tender, Abnormal Bowel Sounds (Hypoactive) Extremities: Normal Inspection Neurological: Alert, Oriented, Slow to Respond Skin Exam: Warm, Dry, Intact, Normal Color Course - Vital Signs Last Recorded V/S: Last Vital Signs Temp 37.1 C 03/07/18 11:59 Pulse 62 03/07/18 14:20 Resp 18 03/07/18 13:07 BP 103/67 03/07/18 14:20 Pulse Ox 97 03/07/18 14:20 - Orders/Labs/Meds Orders: Active Orders 24 hr Category Date Time Status Admission Status [Patient Status] [ADT] Routine ADT 03/07/18 14:56 Ordered EKG 12 Lead [EKG Documentation Completion] [RC] STAT Care 03/07/18 14:58 Ordered Chest 1V Frontal [CR] Stat Exams 03/07/18 12:19 Taken BLOOD GAS ARTERIAL [BG] Stat Lab 03/07/18 14:58 Ordered CULTURE BLOOD [BC] Stat Lab 03/07/18 14:58 Ordered CULTURE BLOOD [BC] Stat Lab 03/07/18 14:58 Ordered MAGNESIUM [CHEM] Stat Lab 03/07/18 14:58 Ordered SEDIMENTATION RATE AUTO [HEME] Stat Lab 03/07/18 14:58 Ordered Sodium Chloride 0.9% [Saline Flush] Med 03/07/18 12:18 Active 10 ml FLUSH ASDIRECTED PRN Blood Culture x2 Reflex Set [OM.PC] Stat Oth 03/07/18 14:58 Ordered Peripheral IV Insertion Adult [OM.PC] Routine Oth 03/07/18 12:18 Ordered Medication Orders Sodium Chloride (Saline Flush) 10 ml FLUSH ASDIRECTED PRN PRN Reason: Keep Vein Open Labs: Laboratory Tests 03/07/18 03/07/18 03/07/18 Range/Units 12:35 12:35 12:35 WBC 12.6 H (4.0-10.0) x10^3/uL RBC 3.57 L (4.00-5.50) x10^6/uL Hgb 10.4 L (12.0-16.0) g/dL Hct 32.8 L (33.0-47.0) % MCV 91.9 D (78.0-93.0) fL MCH 29.1 (26.0-32.0) pg MCHC 31.7 L (32.0-36.0) g/dL RDW Coeff of Ty 17.5 H (10.0-15.0) % Plt Count 312 (130-400) x10^3/uL Neut % (Auto) 88.3 H (50.0-80.0) % Lymph % (Auto) 4.7 L (25.0-50.0) % [place] % (Auto) 6.7 (2.0-11.0) % Eos % (Auto) 0.1 (0.0-4.0) % Baso % (Auto) 0.2 (0.2-1.2) % Sodium 132 L (136-145) mmol/L Potassium 3.9 (3.5-5.1) mmol/L Chloride 95 L (98-107) mmol/L Carbon Dioxide 34 H (21-32) mmol/L Anion Gap 6.9 L (10-20) mmol/L BUN 8 (7-18) mg/dL Creatinine 0.8 (0.55-1.02) mg/dL Est Cr Clr Drug Dosing TNP Estimated GFR (MDRD) > 60 Glucose 163 H (74-106) mg/dL Lactic Acid 0.7 (0.4-2.0) mmol/L Calcium 8.7 (8.5-10.1) mg/dL Corrected Calcium 9.98 (8.5-10.1) mg/dL Total Bilirubin 0.5 (0.2-1.0) mg/dL AST 18 (15-37) U/L ALT 21 (14-59) U/L Alkaline Phosphatase 80 (46-116) U/L Creatine Kinase 21 L (26-192) U/L Troponin I < 0.017 (<=0.056) ng/mL C-Reactive Protein < 0.2 (<=0.9) mg/dL NT-Pro-B Natriuret Pep < 5 (<=450) pg/mL Total Protein 6.0 L (6.4-8.2) g/dL Albumin 2.4 L (3.4-5.0) g/dL Globulin 3.6 Albumin/Globulin Ratio 0.67 Meds: Medications Generic Name Dose Route Start Last Admin Trade Name Freq PRN Reason Stop Dose Admin Sodium Chloride 10 ml 03/07/18 12:18 Saline Flush FLUSH ASDIRECTED PRN Keep Vein Open Departure - Departure Time of Disposition: 15:00 Disposition: Admitted As Inpatient 64 Clinical Impression: Weakness, Delirium, Confused - Discharge Information ED Communication - ED Communication Date/Time Date: 03/07/18 Time Called: 14:15 - Discussed Case With (1) Discussed Case With (1): Outpatient Provider Person/s Notified (1): Cathy Amaya - Conversation Summary Summary Comment: Dr. Amaya in to visit with family - Problem List Review Problem List Initiated/Reviewed/Updated: Yes - My Orders Last 24 Hours: My Active Orders 03/07/18 12:18 Sodium Chloride 0.9% [Saline Flush] 10 ml FLUSH ASDIRECTED PRN Peripheral IV Insertion Adult [OM.PC] Routine 03/07/18 12:19 Chest 1V Frontal [CR] Stat 03/07/18 14:56 Admission Status [Patient Status] [ADT] Routine 03/07/18 14:58 EKG 12 Lead [EKG Documentation Completion] [RC] STAT BLOOD GAS ARTERIAL [BG] Stat CULTURE BLOOD [BC] Stat CULTURE BLOOD [BC] Stat MAGNESIUM [CHEM] Stat SEDIMENTATION RATE AUTO [HEME] Stat Blood Culture x2 Reflex Set [OM.PC] Stat - Assessment/Plan Last 24 Hours: My Active Orders 03/07/18 12:18 Sodium Chloride 0.9% [Saline Flush] 10 ml FLUSH ASDIRECTED PRN Peripheral IV Insertion Adult [OM.PC] Routine 03/07/18 12:19 Chest 1V Frontal [CR] Stat 03/07/18 14:56 Admission Status [Patient Status] [ADT] Routine 03/07/18 14:58 EKG 12 Lead [EKG Documentation Completion] [RC] STAT BLOOD GAS ARTERIAL [BG] Stat CULTURE BLOOD [BC] Stat CULTURE BLOOD [BC] Stat MAGNESIUM [CHEM] Stat SEDIMENTATION RATE AUTO [HEME] Stat Blood Culture x2 Reflex Set [OM.PC] Stat Assessment:: Confusion Weakness Delirium Plan: Case discussed with Dr. Amaya; patient will be admitted acute under [facility] service.
[2018-03-07] MEDS ORDERED: cefTRIAXone 1 GM Vial IVPUSH ONE (15:01)
[2018-03-07] MEDS ORDERED: Ondansetron 4 MG Tab.DIS PO PRN (15:21)
[2018-03-07] MEDS ORDERED: Acetaminophen 325 MG Tab PO PRN ×2 (15:21→15:55)
[2018-03-07] MEDS ORDERED: Lactated Ringers 1,000 ML IV SCH (15:30)
[2018-03-07] MEDS: Sodium Chloride 0.9% 10 ML Syringe FLUSH PRN (15:39)
[2018-03-07] MEDS ORDERED: Albuterol 0.083% 2.5 MG/3 ML Neb Soln NEB PRN (15:55)
[2018-03-07] MEDS ORDERED: methylPREDNISolone Sod Succ 125 MG in Sodium Chloride 0.9% 100 ML IV SCH (16:00)
[2018-03-07] MEDS ORDERED: Arformoterol 15 MCG/2 ML Neb Soln INH SCH (16:00)
[2018-03-07] MEDS ORDERED: Sodium Chloride 0.9% 1,000 ML IV SCH (16:15)
[2018-03-07] MEDS: Enoxaparin 40 MG/0.4 ML Syringe SUBCUT SCH (16:36)
[2018-03-07] MEDS: methylPREDNISolone Sodium Succinate 125 MG/2 ML SDV IVPUSH SCH (16:36)
[2018-03-07] MEDS: Albuterol 0.083% 2.5 MG/3 ML Neb Soln NEB SCH ×2 (16:36→20:53)
[2018-03-07] MEDS: Furosemide 20 MG Tab PO SCH (16:36)
[2018-03-07] MEDS: Potassium Chloride 20 MEQ Tab.ER PO SCH ×2 (16:40→17:09)
--- NOTE | 2018-03-07 20:52 | HP ---
CHIEF COMPLAINT: Confusion. HISTORY OF PRESENT ILLNESS: The patient is an 78-year-old female who was brought into [facility] Emergency Room by ambulance due to difficulty walking with confusion. The patient has been in declining health over the past several months and had just been found to have a bladder infection yesterday at the clinic with a urine that was brought in and she was started on Bactrim DS. She was last seen in the clinic by Dr. Francine Kwon, her primary care provider on 03/02/2018, and at that time, she had bolus of her prednisone for polymyalgia. She was having more achiness of her muscles and more difficulty walking. Family states that today she could not even stand. They had to get some sort of chair lift yesterday for her to help get around. The patient has not taken her breathing treatments this morning and just is extremely weak. When she was seen in the emergency room, she did seem to brighten up with increased oxygen that was placed on her. She was seen by her home health nurse. Normally, she is on 3 L of oxygen. She had increased up to 4 L. The patient to note had been changed a month ago from Symbicort and Spiriva to Brovana and Pulmicort nebs, but not placed on anticholinergic. She is on chronic oxygen at home. The patient's family has known that they do not want to be aggressive with healthcare and wanted to try to keep her comfortable. The patient herself is a very poor historian, cannot really relate as to what is going on. MEDICATIONS: She is on Bactrim DS 1 twice a day, just started on 03/06/2018; prednisone 5 mg 2 pills daily for 3 days and then 5 mg daily, so that would be she is currently on 5 mg daily; magnesium oxide 400 mg 1 pill daily; potassium chloride 20 mEq 1 pill twice a day; Brovana 1 neb twice a day; Pulmicort 1 neb 0.5/2 mL twice a day; furosemide 40 mg 1 pill in the morning and half at noon; Proventil inhales 1 neb 4 times a day and every 4 hours as needed; Prilosec 20 mg 1 pill daily; oxybutynin 5 mg, take 0.5 mg by mouth every night; vitamin C 500 mg 1 pill daily; metoprolol 50 mg 1 pill twice a day; Zocor 10 mg 1 pill at bedtime; ferrous gluconate 324 mg, she takes 1 pill every Friday, Friday, and Friday; vitamin B12 500 mcg 1 pill a day; calcium with vitamin D; Citracal 315/200 one pill a day; aspirin 81 mg 1 pill a day; multivitamin 1 pill a day; vitamin D3 2000 units 1 pill a day. ALLERGIES: None known for medical allergies. VACCINATION HISTORY: She has had Reclast done on 10/16/2015, Prevnar on 12/27/2014, pneumococcal 23 on 06/01/2008, tetanus on 03/17/2008. PAST MEDICAL HISTORY: The patient has COPD oxygen dependent, polymyalgia rheumatica. She has had hypertension. She has had hiatal hernia, osteoporosis, DVT in the past, hyponatremia, diastolic CHF, hyperglycemia, allergic rhinitis, acute pancreatitis in the past, ventral hernia, mitral regurgitation, paroxysmal atrial fibrillation, absolute anemia. She has had coronary artery disease with previous non-STEMI. She has prediabetes, overactive bladder, peptic ulcer disease, acute cystitis. PAST SURGICAL HISTORY: She has had an incisional hernia. She had a colectomy with partial and colostomy closure of distal segment prior to 2012. She had an incisional hernia surgery, appendectomy, cataracts in 2007, temporal artery biopsy in 2010, ventral hernia repair with mesh on 01/18/2014, cholecystectomy on 01/18/2014, EGD on 11/07/2014, colonoscopy on 11/07/2014, EGD on 01/17/2015. FAMILY MEDICAL HISTORY: Noncontributory. SOCIAL HISTORY: She lives with her . She is a former smoker, she quit on 11/25/2013. She does not consume alcohol. To note, the patient was last hospitalized in 08/2017 for 2 weeks and then had been on swing bed for 2 weeks and then had been at [facility] for a month and went back home. Family is contemplating hospice care. Code level status, they do not want her to be intubated nor do they want her resuscitated. REVIEW OF SYSTEMS: The patient has been gradually getting weaker. She has been noted to be confused today. No open skin sores. Now, does have bruising on her extensor surfaces of her arms. Does have chronic cough. No vomiting. No nausea. No diarrhea. Does have some urge incontinence. No swelling of her lower extremities. She is not able to walk right now due to weakness. She is noted to be confused today. Information was obtained from family as the patient is not able to answer any of her questions. OBJECTIVE: Vital Signs: Her temperature is 96.9, blood pressure is 103/67, pulse 64, respiratory rate is 18, sats were 97% on 3 L. When she got here, temperature rectally was (37.1). Skin: [place], warm, and dry. She has extensive bruising on her extensor surfaces of her forearms. HEENT: The patient is wearing oxygen and conjunctivae are clear. Mucous membranes are extremely dry with white material that is caked on the back of her mouth. Tympanic membranes are normal bilaterally. Neck: No JVD. No anterior cervical lymphadenopathy. Heart: Regular rate and rhythm. Lungs: Reveal some inspiratory wheezes bilaterally. Abdomen: Obese, soft, nontender. Extremities: Lower extremities, no edema. The patient's basting marker strength is noted to be weakened bilaterally. She has a difficult time elevating her legs off the table. Does seem to have pain with lifting the right leg at all. She is able to lift the left leg about 3 inches off the table, but that is it. Neurologic: Orientation, the patient knows what month it is and what day of the week it is, but not the date nor the year, she says it is 1976. When asked where she is at right now, she keeps saying it is emphysema. When asked about the President, she knows is President Bhavna. The patient has a slow time following commands with [id number] pointing. DIAGNOSTIC DATA: Her chest x-ray was done, which shows hiatal hernia with some lateral scarring felt to be probably her chronic COPD changes. Her laboratory data that was drawn shows a white blood cell count 12.6, hemoglobin 10.4, platelets 312, segs 88%, lymphocytes 4.7, monocytes 6.7. Sodium is 132, potassium 3.9, chloride 95, carbon dioxide 34, BUN 8, creatinine 0.8, GFR greater than 60, glucose 163, lactic acid 0.7, calcium 8.7, total bilirubin 0.5, AST 18, ALT 21, alkaline phosphatase 80, creatine kinase 21. Troponin less than 0.017. CRP less than 0.02. ProBNP less than 5. Albumin 2.4. IMPRESSION: 1. Delirium, suspect related to bladder infection, however, not septic. 2. Extreme weakness. 3. Polymyalgia rheumatica with being steroid dependent. 4. Chronic obstructive pulmonary disease with being on oxygen, need to rule out CO2 retention. 5. Diastolic congestive heart failure. 6. History of atrial fibrillation, paroxysmal. 7. Previous coronary artery disease. PLAN: The patient will be admitted to acute care. Her code level status will be do not resuscitate, do not intubate. We will place her on IV Rocephin. We will give a small dose of IV fluids to be careful not to overhydrate her to turn her into pulmonary edema. We will give her some IV steroids because she has been recently steroid dependent. The patient's prognosis is actually quite grim with her multifactorial problems and her declining health and the patient may need to go on palliative care or she may of current problems. She does not seem to have pain right now and family had been interested in visiting with hospice for consult and so she may actually end up being needed to be transferred over to hospice care. Dr. Francine Kwon will assume care on 03/09/2018 of her. Still pending at the time of this discharge summary of her EKG, ABGs, and magnesium level as well as sedimentation rate. To note, her daughter was present in the room as well as son-in-law and grandson. Addendum tone area was read so a live will be placed for skin hygiene concerns with UTI. ABG's on 4 l showed pH 7.39, pO2 79, pCO2 65, HCO3 40.6, Sat 95%. Mag 1.8. So due to CO 2 retention will start pt on BiPap, and family is ok with that. GM03/07/2018 15:20:58 MODL: 03/07/2018 20:47:15 /[id number]
[2018-03-07] MEDS: Arformoterol 15 MCG/2 ML Neb Soln INH SCH (20:53)
[2018-03-07] MEDS: Budesonide 0.5 MG/2 ML Neb Susp NEB SCH (20:53)
[2018-03-07] MEDS: Metoprolol Tartrate 50 MG Tab PO SCH (20:54)
[2018-03-07] MEDS: Calcium Citrate/Vitamin D3 315 MG-250 Unit Tab PO SCH (20:54)
[2018-03-07] MEDS: Oxybutynin 5 MG Tab PO SCH (20:55)
[2018-03-07] MEDS: Simvastatin 10 MG Tab PO SCH (20:55)
[2018-03-08] MEDS: Sodium Chloride 0.9% 10 ML Syringe FLUSH PRN (04:35)
[2018-03-08] MEDS: methylPREDNISolone Sodium Succinate 125 MG/2 ML SDV IVPUSH SCH ×2 (04:35→17:31)
[2018-03-08] MEDS: Albuterol 0.083% 2.5 MG/3 ML Neb Soln NEB SCH ×4 (06:24→20:44)
[2018-03-08] MEDS: Arformoterol 15 MCG/2 ML Neb Soln INH SCH ×2 (07:06→20:45)
[2018-03-08] MEDS: Budesonide 0.5 MG/2 ML Neb Susp NEB SCH ×2 (07:06→20:40)
[2018-03-08] MEDS: Enoxaparin 40 MG/0.4 ML Syringe SUBCUT SCH (08:17)
[2018-03-08] MEDS: Aspirin 81 MG Tab.Chew PO SCH (08:17)
[2018-03-08] MEDS: cefTRIAXone 1 GM Vial IVPUSH SCH (08:17)
[2018-03-08] MEDS: Omeprazole 20 MG Cap.CR PO SCH (08:17)
[2018-03-08] MEDS ORDERED: Sodium Chloride 0.9% 1,000 ML IV SCH ×2 (08:17→09:00)
[2018-03-08 08:18] LABS: ANION GAP 9.5 mmol/L (10-20)
[2018-03-08] MEDS: Ascorbic Acid 500 MG Tab PO SCH (08:18)
[2018-03-08] MEDS: Cholecalciferol (Vitamin D3) 1,000 Unit Tab PO SCH (08:18)
[2018-03-08] MEDS: Furosemide 40 MG Tab PO SCH (08:18)
[2018-03-08] MEDS: Metoprolol Tartrate 50 MG Tab PO SCH ×2 (08:18→20:46)
[2018-03-08] MEDS: Magnesium Oxide 400 MG Tab PO SCH (08:18)
[2018-03-08] MEDS: Potassium Chloride 20 MEQ Tab.ER PO SCH ×2 (08:18→17:31)
[2018-03-08] MEDS: Cyanocobalamin (Vitamin B12) 250 MCG Tab PO SCH (08:18)
[2018-03-08] MEDS: Multivitamins with Iron/Calcium/Folic Acid/Minerals Tab PO SCH (08:18)
[2018-03-08] MEDS: Calcium Citrate/Vitamin D3 315 MG-250 Unit Tab PO SCH ×2 (08:18→20:45)
--- NOTE | 2018-03-08 11:36 | PN ---
Progress Note for MIGUEL VICTORT Date: 03/08/2018 Room #: [facility] SUBJECTIVE: The patient was admitted yesterday afternoon with confusion, was found to have CO2 retention as well as recent UTI, was given IV fluids, IV Rocephin, placed on BiPAP. Her blood gases did improve 6 hours after BiPAP had been started. However, patient was still noted to be quite somnolent and tired. The patient though did get to be more alert earlier during the night and started having some itchiness on her face from the BiPAP machine, so it was removed and she was maintaining her sats with just oxygen by nasal cannula. Otherwise, she did have a Ma catheter placed because her perineal area was quite reddened and because of the concerns with urinary tract infection. OBJECTIVE: Vital Signs: Her weight today is 74.2 kg, up 1.5 kg on admission. Her temperature is 36.9, pulse is 82, blood pressure is 132/57, respiratory rate is 20, sats are 95 on 6 L. Skin: Somewhat flushed throughout her body. She has bruises on extensor surfaces of her forearm. Heart: Regular rate and rhythm. Lungs: Have less wheezes than admission, is actually almost clear. Abdomen: Soft. Extremities: No edema. Neurologic: The patient is quite weak. She is sitting up to the side of her bed. She does have questionably some tremulousness noted. Psychiatric: The patient does seem to be more alert and talkative. Does recognize who I am. LABORATORY DATA: Today is still pending other than blood gases have come back, which showed pH is 7.37, PO2 is high at 115, pCO2 has climbed some to 62.7, bicarb is 36.5, sats are 98%. Lactic acid had been repeated 4 hours after admission yesterday. It has stayed the same at 0.7. Urinalysis had been done yesterday which did show 10-20 white blood cells, few bacteria, and this is obtained after some oral Bactrim as well as IV Rocephin. IMPRESSION: 1. Confusion, multifactorial. 2. CO2 retention with hypercapnia. 3. Urinary tract infection. 4. Chronic obstructive pulmonary disease. 5. Polymyalgia rheumatica. PLAN: We will carefully observe the patient today. We will take her off the BiPAP and try to have her do incentive spirometry with deep breathing. May need to replace the BiPAP back on and we will reduce her IV fluids to make certain we do not over hydrate her and we will continue the Rocephin as well as continue the IV steroids on patient and Dr. Francine Kwon will resume the patient's care tomorrow morning. We will also review lab work that was done this morning and make any appropriate alterations as needed. The patient's status is still somewhat grim. GM03/08/2018 08:17:04 MODL: 03/08/2018 09:00:40 /[id number]
[2018-03-08] MEDS: Furosemide 20 MG Tab PO SCH (11:39)
[2018-03-08 13:16] LABS: BICARBONATE,ARTERIAL 34 mmol/L (22-26); PCO2 ARTERIAL 53 mmHG (35-45); PO2 ARTERIAL 61 mmHG (80-105)
[2018-03-08 13:17] LABS: BASE EXCESS ARTERIAL 10 mmol/L (-2-3); O2 FLOW RATE 2 L/min
--- NOTE | 2018-03-08 13:50 | PCM.SN ---
- Free Text/Narrative Note: Pt seen after repeat ABG's back on bipap. She has been more alert. ABG's are better with pCO2 down to 53 and pH 7.42, Will continue current cares.
[2018-03-08] MEDS: Sodium Chloride 0.9% 1,000 ML IV SCH (15:05)
[2018-03-08] MEDS: Oxybutynin 5 MG Tab PO SCH (20:45)
[2018-03-08] MEDS: Simvastatin 10 MG Tab PO SCH (20:46)
[2018-03-09] MEDS: methylPREDNISolone Sodium Succinate 125 MG/2 ML SDV IVPUSH SCH (04:52)
[2018-03-09] MEDS: Albuterol 0.083% 2.5 MG/3 ML Neb Soln NEB SCH ×4 (06:29→19:52)
[2018-03-09] MEDS: Arformoterol 15 MCG/2 ML Neb Soln INH SCH ×2 (07:06→19:52)
[2018-03-09] MEDS: Budesonide 0.5 MG/2 ML Neb Susp NEB SCH ×2 (07:06→19:52)
[2018-03-09 07:30] LABS: CHLORIDE,CL 97 mmol/L (98-107); SODIUM,NA 132 mmol/L (136-145)
[2018-03-09 07:32] LABS: ANION GAP 7.7 mmol/L (10-20)
[2018-03-09] MEDS: Cyanocobalamin (Vitamin B12) 250 MCG Tab PO SCH (07:53)
[2018-03-09] MEDS: Cholecalciferol (Vitamin D3) 1,000 Unit Tab PO SCH (07:53)
[2018-03-09] MEDS: Aspirin 81 MG Tab.Chew PO SCH (07:53)
[2018-03-09] MEDS: Metoprolol Tartrate 50 MG Tab PO SCH ×2 (07:53→19:51)
[2018-03-09] MEDS: Calcium Citrate/Vitamin D3 315 MG-250 Unit Tab PO SCH ×2 (07:53→19:51)
[2018-03-09] MEDS: cefTRIAXone 1 GM Vial IVPUSH SCH (07:53)
[2018-03-09] MEDS: Omeprazole 20 MG Cap.CR PO SCH (07:53)
[2018-03-09] MEDS: Potassium Chloride 20 MEQ Tab.ER PO SCH (07:53)
[2018-03-09] MEDS: Ascorbic Acid 500 MG Tab PO SCH (07:54)
[2018-03-09] MEDS: Magnesium Oxide 400 MG Tab PO SCH (07:54)
[2018-03-09] MEDS: Furosemide 40 MG Tab PO SCH (07:54)
[2018-03-09] MEDS: Multivitamins with Iron/Calcium/Folic Acid/Minerals Tab PO SCH (07:54)
[2018-03-09] MEDS: Enoxaparin 40 MG/0.4 ML Syringe SUBCUT SCH (07:54)
[2018-03-09] MEDS: Ferrous Sulfate 325 MG Tab PO SCH (08:06)
--- NOTE | 2018-03-09 09:40 | PN ---
Progress Note for MIGUEL Perez RADHA Date: 03/09/2018 Room #: .[facility] SUBJECTIVE: This is hospital day #3 on an 78-year-old admitted with unresponsiveness, likely due to hypercapnic respiratory failure in the setting of severe chronic obstructive pulmonary disease. She also had been on oral antibiotics for one day prior to her arrival for a Klebsiella UTI. She is no longer having any burning with urination, but they did stick in a catheter because she was unresponsive. She has had chronic urinary leakage and has been on oxybutynin. Otherwise, she has not had any chest pain. She states she was not really coughing. She is chronically on at least 2 L of oxygen, but up to 4. She has not had any leg swelling. She has had several AFib with RVR and tachycardic events on telemetry, but is in a sinus rhythm this morning. She has been on her home Lasix doses. She has been getting 125 of Solu-Medrol. She has been getting nebulizers. She has been off and on BiPAP, the last time was last evening for about 2 hours, but she is up, she is alert and orientated this morning and able to answer all questions appropriately. OBJECTIVE: Vital Signs: Her weight is 74.7 kg, temperature 97.4, pulse 62, blood pressure 100/54, respiratory rate 18. O2 is 93% on 2 L, but then charted only 82 on 2 L, so turned up to 4 L, saturating now 95%. General: She is in no acute distress. Heart: Irregular rate and rhythm with murmur. Lungs: Sounds are decreased, but clear throughout without crackles or wheezes. Abdomen: Nondistended and nontender. Extremities: Warm and dry. There is no edema. She has multiple areas of bruising on both hands. Mental Status: Alert and orientated x3. LABORATORY DATA: Lab work does show white count normal 8.4, hemoglobin down slightly to 9.3, platelets 278. ESR 36. Sodium 135, potassium 4.7, chloride 97, bicarb 32, BUN 20, creatinine 0.8, calcium 8.1, CRP 1.1. Repeat urine culture is not growing anything. ASSESSMENT: 1. Acute on chronic hypoxic and hypercapnic respiratory failure resulting in unresponsiveness. This is improving. She is no longer on the BiPAP. It is at the bedside in case it is needed. 2. Klebsiella urinary tract infection, now day #3 of IV Rocephin. We will await susceptibilities before making antibiotic changes as she is improving with this. 3. Delirium related to the urinary tract infection and hypercapnia. 4. Severe chronic obstructive pulmonary disease with exacerbation. I am going to decrease her Solu-Medrol down to 40 mg twice daily. 5. Polymyalgia rheumatica. She is not having any symptoms. She is more than covered with her current Solu-Medrol dosing. We will go back to prednisone on discharge. 6. Hypokalemia. Potassium levels okay. We will decrease to 20 daily. 7. Chronic diastolic heart failure stable without exacerbation. She will stay on her home dose of Lasix. 8. Paroxysmal atrial fibrillation with rapid ventricular rate. She is back in a sinus rhythm. We will continue to monitor. We will hold off on starting any anticoagulation. She is on DVT prophylaxis with Lovenox. 9. Chronic anemia. She is on oral iron. PLAN: At this point, the patient will continue acute cares. We will get her up and working with therapies. Her blood sugars have been fairly reasonable for being on the Solu-Medrol, but we will go ahead and decrease that to 40 mg twice daily. Anticipate she will need at least another night of acute care and possibly even swing bed before returning home. The patient is agreeable to this plan, and when we are also going to remove the Ma today and do bladder scans, I am going to go ahead and stop her Ditropan. MKA: 03/09/2018 08:28:06 MODL: 03/09/2018 09:30:58 /[id number]
[2018-03-09] MEDS: Furosemide 20 MG Tab PO SCH (11:21)
[2018-03-09] MEDS: methylPREDNISolone Sodium Succinate 40 MG/1 ML SDV IVPUSH SCH (16:03)
[2018-03-09] MEDS: Simvastatin 10 MG Tab PO SCH (19:51)
[2018-03-10] MEDS: methylPREDNISolone Sodium Succinate 40 MG/1 ML SDV IVPUSH SCH ×2 (04:56→18:41)
[2018-03-10] MEDS: Budesonide 0.5 MG/2 ML Neb Susp NEB SCH ×2 (07:09→19:46)
[2018-03-10] MEDS: Arformoterol 15 MCG/2 ML Neb Soln INH SCH ×2 (07:09→19:46)
[2018-03-10] MEDS: Albuterol 0.083% 2.5 MG/3 ML Neb Soln NEB SCH ×4 (07:10→19:46)
[2018-03-10 07:29] LABS: CHLORIDE,CL 97 mmol/L (98-107); SODIUM,NA 132 mmol/L (136-145)
[2018-03-10 07:32] LABS: ANION GAP 6.3 mmol/L (10-20)
[2018-03-10] MEDS: Magnesium Oxide 400 MG Tab PO SCH (07:57)
[2018-03-10] MEDS: Aspirin 81 MG Tab.Chew PO SCH (07:57)
[2018-03-10] MEDS: Cyanocobalamin (Vitamin B12) 250 MCG Tab PO SCH (07:57)
[2018-03-10] MEDS: Calcium Citrate/Vitamin D3 315 MG-250 Unit Tab PO SCH ×2 (07:57→19:46)
[2018-03-10] MEDS: Omeprazole 20 MG Cap.CR PO SCH (07:57)
[2018-03-10] MEDS: Potassium Chloride 20 MEQ Tab.ER PO SCH (07:57)
[2018-03-10] MEDS: Enoxaparin 40 MG/0.4 ML Syringe SUBCUT SCH (07:57)
[2018-03-10] MEDS: cefTRIAXone 1 GM Vial IVPUSH SCH (07:57)
[2018-03-10] MEDS: Ascorbic Acid 500 MG Tab PO SCH (07:57)
[2018-03-10] MEDS: Sodium Chloride 0.9% 10 ML Syringe FLUSH PRN ×2 (07:58→18:41)
[2018-03-10] MEDS: Metoprolol Tartrate 50 MG Tab PO SCH ×2 (07:58→19:46)
[2018-03-10] MEDS: Cholecalciferol (Vitamin D3) 1,000 Unit Tab PO SCH (07:58)
[2018-03-10] MEDS: Furosemide 40 MG Tab PO SCH (07:58)
[2018-03-10] MEDS: Multivitamins with Iron/Calcium/Folic Acid/Minerals Tab PO SCH (07:58)
[2018-03-10] MEDS ORDERED: Potassium Chloride 20 MEQ Tab.ER PO SCH (08:00)
[2018-03-10] MEDS: Sodium Chloride 0.9% 1,000 ML IV SCH (08:04)
[2018-03-10] MEDS ORDERED: Levofloxacin 500 MG Tab PO SCH (09:30)
[2018-03-10] MEDS ORDERED: Iopamidol 612 MG/ML 100 ML Bottle IVPUSH ONE ×2 (10:09→10:10)
[2018-03-10] MEDS: Furosemide 20 MG Tab PO SCH (12:37)
--- NOTE | 2018-03-10 17:23 | PCM.PN ---
- General Info Date of Service: 03/10/18 Admission Dx/Problem (Free Text): Hospital day number 4 for a 78 yo with severe COPD admitted with exacerbation she has been more SOB today, her cough maybe a little better. IV steroid decreased to 40 BID yesterday and catheter was removed. She had a post void around 300 after she had a "flood" per the INSTRUMENTATION ENGINEER. She had been on ditropan this has been stopped. No fevers but is feeling more fatigued. Has been in IV rocephin. Getting neb treatments which help. Functional Status: Reports: Pain Controlled, Tolerating Diet, New Symptoms ( fatigue) - Review of Systems General: Reports: Weakness, Fatigue. Denies: Fever, Chills HEENT: Denies: Dysphasia Pulmonary: Reports: Shortness of Breath, Cough, Sputum. Denies: Pleuritic Chest Pain Cardiovascular: Reports: Dyspnea on Exertion, Orthopnea. Denies: Chest Pain, Palpitations Gastrointestinal: Denies: Abdominal Pain, Constipation, Decreased Appetite Genitourinary: Reports: Incontinence. Denies: Dysuria, Frequency Neurological: Denies: Confusion - Patient Data Vitals - Most Recent: Last Vital Signs Temp 97.9 F 03/10/18 14:00 Pulse 84 03/10/18 14:00 Resp 20 03/10/18 05:40 BP 149/105 H 03/10/18 14:00 Pulse Ox 94 L 03/10/18 07:10 Weight - Most Recent: 77.201 kg I&O - Last 24 Hours: Intake & Output 03/10/18 03/10/18 03/10/18 06:59 14:59 22:59 Intake Total 914 766 Output Total 850 400 200 Balance 64 366 -200 Lab Results Last 24 Hours: Laboratory Results - last 24 hr 03/10/18 03/10/18 Range/Units 06:56 06:56 WBC 9.8 (4.0-10.0) x10^3/uL RBC 3.48 L (4.00-5.50) x10^6/uL Hgb 10.1 L (12.0-16.0) g/dL Hct 32.1 L (33.0-47.0) % MCV 92.2 (78.0-93.0) fL MCH 29.0 (26.0-32.0) pg MCHC 31.5 L (32.0-36.0) g/dL RDW Coeff of Ty 17.4 H (10.0-15.0) % Plt Count 291 (130-400) x10^3/uL Add Manual Diff Yes Neutrophils % (Manual) 77 (50-80) % Band Neutrophils % 2 (0-6) % Lymphocytes % (Manual) 15 L (25-50) % Monocytes % (Manual) 5 (2-11) % Metamyelocytes % 1 H (0) % Hypersegmented Neuts Few H Toxic Granulation 1+ slight H Platelet Estimate Adequate Plt Morphology Comment See note Anisocytosis 1+ slight H Ovalocytes 1+ slight H Rouleaux 1+ slight H Sodium 132 L (136-145) mmol/L Potassium 4.3 (3.5-5.1) mmol/L Chloride 97 L (98-107) mmol/L Carbon Dioxide 33 H (21-32) mmol/L Anion Gap 6.3 L (10-20) mmol/L BUN 19 H (7-18) mg/dL Creatinine 0.8 (0.55-1.02) mg/dL Est Cr Clr Drug Dosing 48.43 mL/min Estimated GFR (MDRD) > 60 Glucose 139 H (74-106) mg/dL Calcium 8.7 (8.5-10.1) mg/dL Duc Results Last 24 Hours: Microbiology 03/07/18 15:45 Aerobic Blood Culture - Preliminary Blood - Venous - Lab Draw NO GROWTH AFTER 3 DAYS Anaerobic Blood Culture - Final 03/07/18 15:20 Aerobic Blood Culture - Preliminary Blood - Venous NO GROWTH AFTER 3 DAYS Anaerobic Blood Culture - Final 03/07/18 17:35 Urine Culture - Final Urine, Ma Cath (Indwelling) Klebsiella Oxytoca Med Orders - Current: Current Medications Acetaminophen (Tylenol) 650 mg PO Q4H PRN PRN Reason: Pain (Mild 1-3)/fever Albuterol (Proventil Neb Soln) 2.5 mg NEB Q4H PRN PRN Reason: Shortness of Breath Last Admin: 03/10/18 09:23 Dose: 2.5 mg Albuterol (Proventil Neb Soln) 2.5 mg NEB QIDRT [facility] Last Admin: 03/10/18 14:42 Dose: 2.5 mg Arformoterol Tartrate (Brovana) 15 mcg INH BIDRT [facility] Last Admin: 03/10/18 07:09 Dose: 15 mcg Ascorbic Acid (Vitamin C) 500 mg PO DAILY [facility] Last Admin: 03/10/18 07:57 Dose: 500 mg Aspirin (Aspirin) 81 mg PO DAILY [facility] Last Admin: 03/10/18 07:57 Dose: 81 mg Budesonide (Pulmicort) 0.5 mg NEB BIDRT [facility] Last Admin: 03/10/18 07:09 Dose: 0.5 mg Calcium Citrate (Calcium Citrate + D) 1 tab PO BID [facility] Last Admin: 03/10/18 07:57 Dose: 1 tab Cholecalciferol (Vitamin D3) 2,000 units PO DAILY [facility] Last Admin: 03/10/18 07:58 Dose: 2,000 units Cyanocobalamin (Vitamin B12) 500 mcg PO DAILY [facility] Last Admin: 03/10/18 07:57 Dose: 500 mcg Enoxaparin Sodium (Lovenox) 40 mg SUBCUT DAILY [facility] Last Admin: 03/10/18 07:57 Dose: 40 mg Ferrous Sulfate (Ferrous Sulfate) 325 mg PO MoWeFr@0900 [facility] Last Admin: 03/09/18 08:06 Dose: 325 mg Furosemide (Lasix) 40 mg PO DAILY [facility] Last Admin: 03/10/18 07:58 Dose: 40 mg Furosemide (Lasix) 20 mg PO DAILY@12 [facility] Last Admin: 03/10/18 12:37 Dose: 20 mg Levofloxacin (Levaquin) 250 mg PO DAILY [facility] Magnesium Oxide (Magnesium Oxide) 400 mg PO DAILY [facility] Last Admin: 03/10/18 07:57 Dose: 400 mg Methylprednisolone Sodium Succinate (Solu-Medrol) 40 mg IVPUSH Q12H [facility] Last Admin: 03/10/18 04:56 Dose: 40 mg Metoprolol Tartrate (Lopressor) 50 mg PO BID [facility] Last Admin: 03/10/18 07:58 Dose: 50 mg Multivitamins/Minerals (Thera M Plus) 1 tab PO DAILY [facility] Last Admin: 03/10/18 07:58 Dose: 1 tab Omeprazole (Omeprazole) 20 mg PO DAILY [facility] Last Admin: 03/10/18 07:57 Dose: 20 mg Potassium Chloride (Klor-Con M20) 20 meq PO DAILY [facility] Last Admin: 03/10/18 07:57 Dose: 20 meq Simvastatin (Zocor) 10 mg PO BEDTIME [facility] Last Admin: 03/09/18 19:51 Dose: 10 mg Sodium Chloride (Saline Flush) 10 ml FLUSH ASDIRECTED PRN PRN Reason: Keep Vein Open Last Admin: 03/10/18 07:58 Dose: 10 ml Discontinued Medications Ceftriaxone Sodium (Rocephin) 1 gm IVPUSH STAT ONE Stop: 03/07/18 15:02 Last Admin: 03/07/18 15:39 Dose: 1 gm Ceftriaxone Sodium (Rocephin) 1 gm IVPUSH DAILY [facility] Last Admin: 03/10/18 07:57 Dose: 1 gm Lactated Ringer's (Ringers, Lactated) 1,000 mls @ 50 mls/hr IV ASDIRECTED [facility] Methylprednisolone Sodium Succinate 125 mg/ Sodium Chloride 101 mls @ 200 mls/ hr IV Q12H [facility] Last Admin: 03/07/18 16:37 Dose: Not Given Sodium Chloride (Normal Saline) 1,000 mls @ 50 mls/hr IV ASDIRECTED [facility] Last Infusion: 03/08/18 08:58 Dose: 25 mls/hr Sodium Chloride (Normal Saline) 1,000 mls @ 25 mls/hr IV ASDIRECTED [facility] Sodium Chloride (Normal Saline) 1,000 mls @ 25 mls/hr IV ASDIRECTED [facility] Sodium Chloride (Normal Saline) 1,000 mls @ 25 mls/hr IV ASDIRECTED [facility] Last Admin: 03/10/18 08:04 Dose: 25 mls/hr Iopamidol (Isovue-300 (61%)) 100 ml IVPUSH ONETIME ONE Stop: 03/10/18 10:10 Last Admin: 03/10/18 10:43 Dose: 100 ml Iopamidol (Isovue-300 (61%)) 100 ml IVPUSH ONETIME ONE Stop: 03/10/18 10:11 Levofloxacin (Levaquin) 500 mg PO Q24H [facility] Last Admin: 03/10/18 09:57 Dose: 500 mg Methylprednisolone Sodium Succinate (Solu-Medrol) 125 mg IVPUSH Q12H [facility] Last Admin: 03/09/18 04:52 Dose: 125 mg Ondansetron HCl (Zofran Odt) 4 mg PO Q4H PRN PRN Reason: nausea, able to take PO Oxybutynin Chloride (Oxybutynin) 2.5 mg PO BEDTIME [facility] Last Admin: 03/08/18 20:45 Dose: 2.5 mg Potassium Chloride (Klor-Con M20) 20 meq PO BIDMEALS [facility] Last Admin: 03/09/18 07:53 Dose: 20 meq - Exam Quality Assessment: Supplemental Oxygen General: Alert, Oriented Neck: Supple, Trachea Midline, No JVD Lungs: Decreased Breath Sounds, Rhonchi, Wheezing Cardiovascular: Regular Rate, Regular Rhythm, Murmurs GI/Abdominal Exam: Normal Bowel Sounds, Soft, Non-Tender Back Exam: Other (kyphosis ) Extremities: Normal Inspection, Non-Tender, No Pedal Edema Skin: Other (bruising) Neurological: Normal Speech Psy/Mental Status: Alert, Normal Affect, Depressed - Problem List & Annotations (1) Generalized weakness SNOMED Code(s): 08895177 Code(s): R53.1 - WEAKNESS Status: Acute Priority: High Current Visit: Yes Annotation/Comment:: This is related to her acute admission as well as her underlying comorbidities. Physical therapy has been working with her. Although she has made some gains, it is not felt she will be prepared for dismissal home any time soon. (2) Hypercapnia SNOMED Code(s): 02101727 Code(s): R06.89 - OTHER ABNORMALITIES OF BREATHING Status: Acute Priority : High Current Visit: Yes Onset Date: ~03/07/18 (3) UTI (urinary tract infection) SNOMED Code(s): 13370270 Code(s): N39.0 - URINARY TRACT INFECTION, SITE NOT SPECIFIED Status: Acute Priority: High Current Visit: Yes Onset Date: ~03/06/18 Qualifiers: Urinary tract infection type: acute cystitis Hematuria presence: with hematuria Qualified Code(s): N30.01 - Acute cystitis with hematuria Annotation/Comment:: Klebsiella (4) COPD, Moderate chronic obstructive pulmonary disease SNOMED Code(s): 038993317 Code(s): J44.9 - CHRONIC OBSTRUCTIVE PULMONARY DISEASE, UNSPECIFIED Status : Acute Priority: Medium Current Visit: Yes (5) Chronic anemia SNOMED Code(s): 713229824 Code(s): D64.9 - ANEMIA, UNSPECIFIED Status: Chronic Priority: Medium Current Visit: No Annotation/Comment:: Hemoglobin up over 10 today has gotten as low as 7 in the past during admissions (6) Diastolic heart failure SNOMED Code(s): 919483650 Code(s): I50.30 - UNSPECIFIED DIASTOLIC (CONGESTIVE) HEART FAILURE Status: Chronic Priority: Medium Current Visit: No Qualifiers: Heart failure chronicity: chronic Qualified Code(s): I50.32 - Chronic diastolic (congestive) heart failure (7) Paroxysmal atrial fibrillation SNOMED Code(s): 888321207 Code(s): I48.0 - PAROXYSMAL ATRIAL FIBRILLATION Status: Chronic Priority : Medium Current Visit: No Annotation/Comment:: not on anticoagulation due to bleeding concerns with chronic anemia (8) CAP (community acquired pneumonia) SNOMED Code(s): 938507114 Code(s): J18.9 - PNEUMONIA, UNSPECIFIED ORGANISM Status: Acute Priority: High Current Visit: No Qualifiers: Laterality: left Lung location: upper lobe of lung Qualified Code(s): J18.1 - Lobar pneumonia, unspecified organism Annotation/Comment:: Will change to oral Levaquin to cover for pna and uti did have a 1.8 x 1.[address] (no pulmonary embolis) Patient was notified of the mass and plan to repeat CT in 3 months asked what it could be and explained it could even be cancer but informed that she would not be a candidate for chemo or aggressive treatments. - Problem List Review Problem List Initiated/Reviewed/Updated: Yes - My Orders Last 24 Hours: My Active Orders 03/09/18 17:00 methylPREDNISolone Sod Succ [Solu-MEDROL] 40 mg IVPUSH Q12H 03/10/18 08:00 Potassium Chloride [Klor-Con M20] 20 meq PO DAILY 03/10/18 09:23 Ang Chest [CT] Routine - Assessment Assessment:: see above problems list Severe COPD with exacerbation Plan change ABX to oral levaquin Cotinue IV steroids and telemetry Dr. Amaya to see in AM Repeat labs Continue the same oral lasix Continue with oxygen no Bipap required for 24 hrs Continue with therapies anticipate she will need a swing bed stay
[2018-03-10] MEDS: Simvastatin 10 MG Tab PO SCH (19:46)
[2018-03-11] MEDS: methylPREDNISolone Sodium Succinate 40 MG/1 ML SDV IVPUSH SCH ×2 (05:17→17:14)
[2018-03-11 07:02] LABS: ANION GAP 3.9 mmol/L (10-20); CHLORIDE,CL 96 mmol/L (98-107); SODIUM,NA 137 mmol/L (136-145)
[2018-03-11] MEDS: Albuterol 0.083% 2.5 MG/3 ML Neb Soln NEB SCH ×4 (07:24→20:04)
[2018-03-11] MEDS: Budesonide 0.5 MG/2 ML Neb Susp NEB SCH ×2 (07:24→20:04)
[2018-03-11] MEDS: Arformoterol 15 MCG/2 ML Neb Soln INH SCH ×2 (07:30→20:04)
--- NOTE | 2018-03-11 07:45 | PN ---
Progress Note for MIGUEL Perez TVEDT Date: 03/11/2018 Room #: VM.217 SUBJECTIVE: The patient has been a little bit more alert. She does not like to wear her BiPAP device, but it does help improve her sats significantly. OBJECTIVE: Vital Signs: Her temperature is 36.4, pulse was 70, blood pressure is 147/80, her respiratory rate 18, and sats are 91on 2 L. General: The patient is appearing much more alert, more animated. Skin: Does have some bruising on it. Heart: Regular rate. Lungs: Have diminished breath sounds on bases. Rare crackles. DIAGNOSTIC STUDIES: Her CT scan had been done yesterday to rule out PE, which was negative for that. There was a new 1.8 cm nodule on the left upper lobe. I am not certain if the patient has been informed of that result by Dr. Kwon or not. The patient's steroids were reduced down yesterday. She is on telemetry. She was switched to oral Levaquin. Her labs this morning show that her white blood cell count 8.9, hemoglobin 10.2, and platelets 287. Her sodium is 137, potassium 3.9, creatinine is 0.8, and GFR is greater than 60. She had a CRP yesterday of 1.1, which had gone higher from less than 0.21 checked on 03/07/2018. IMPRESSION: 1. CO2 retention, which is slowly improving with exacerbation of chronic obstructive pulmonary disease with generalized weakness. 2. Urinary tract infection. 3. Chronic anemia. 4. Diastolic heart failure. 5. Paroxysmal atrial fibrillation. 6. Community-acquired pneumonia. PLAN: Her methylprednisolone had been reduced to 40 mg q.12 hours on 03/09. We will continue that same dose today and continue the patient on acute care. Dr. Francine Kwon will resume care tomorrow. GM03/11/2018 07:17:22 MODL: 03/11/2018 07:36:41 /[id number]
[2018-03-11] MEDS: Potassium Chloride 20 MEQ Tab.ER PO SCH (07:59)
[2018-03-11] MEDS: Furosemide 40 MG Tab PO SCH (07:59)
[2018-03-11] MEDS: Enoxaparin 40 MG/0.4 ML Syringe SUBCUT SCH (07:59)
[2018-03-11] MEDS: Cholecalciferol (Vitamin D3) 1,000 Unit Tab PO SCH (07:59)
[2018-03-11] MEDS: Ascorbic Acid 500 MG Tab PO SCH (07:59)
[2018-03-11] MEDS: Multivitamins with Iron/Calcium/Folic Acid/Minerals Tab PO SCH (07:59)
[2018-03-11] MEDS: Magnesium Oxide 400 MG Tab PO SCH (07:59)
[2018-03-11] MEDS: Cyanocobalamin (Vitamin B12) 250 MCG Tab PO SCH (07:59)
[2018-03-11] MEDS: Calcium Citrate/Vitamin D3 315 MG-250 Unit Tab PO SCH ×2 (08:00→20:03)
[2018-03-11] MEDS: Metoprolol Tartrate 50 MG Tab PO SCH ×2 (08:00→20:04)
[2018-03-11] MEDS: Omeprazole 20 MG Cap.CR PO SCH (08:00)
[2018-03-11] MEDS: Levofloxacin 250 MG Tab PO SCH (08:00)
[2018-03-11] MEDS: Aspirin 81 MG Tab.Chew PO SCH (08:00)
[2018-03-11] MEDS: Furosemide 20 MG Tab PO SCH (12:23)
[2018-03-11] MEDS: Ferrous Sulfate 325 MG Tab PO SCH (12:23)
[2018-03-11] MEDS ORDERED: Calcium Carbonate 750 MG Tab.Chew PO PRN (18:33)
[2018-03-11] MEDS: Simvastatin 10 MG Tab PO SCH (20:03)
[2018-03-12] MEDS: methylPREDNISolone Sodium Succinate 40 MG/1 ML SDV IVPUSH SCH (04:37)
[2018-03-12] MEDS: Arformoterol 15 MCG/2 ML Neb Soln INH SCH (07:08)
[2018-03-12] MEDS: Budesonide 0.5 MG/2 ML Neb Susp NEB SCH (07:08)
[2018-03-12] MEDS: Albuterol 0.083% 2.5 MG/3 ML Neb Soln NEB SCH (07:08)
[2018-03-12] MEDS: Enoxaparin 40 MG/0.4 ML Syringe SUBCUT SCH (07:59)
[2018-03-12] MEDS: Potassium Chloride 20 MEQ Tab.ER PO SCH (07:59)
[2018-03-12] MEDS: Aspirin 81 MG Tab.Chew PO SCH (07:59)
[2018-03-12] MEDS: Magnesium Oxide 400 MG Tab PO SCH (08:00)
[2018-03-12] MEDS: Metoprolol Tartrate 50 MG Tab PO SCH (08:00)
[2018-03-12] MEDS: Furosemide 40 MG Tab PO SCH (08:00)
[2018-03-12] MEDS: Calcium Citrate/Vitamin D3 315 MG-250 Unit Tab PO SCH (08:00)
[2018-03-12] MEDS: Multivitamins with Iron/Calcium/Folic Acid/Minerals Tab PO SCH (08:00)
[2018-03-12] MEDS: Ascorbic Acid 500 MG Tab PO SCH (08:00)
[2018-03-12] MEDS: Levofloxacin 250 MG Tab PO SCH (08:00)
[2018-03-12] MEDS: Cyanocobalamin (Vitamin B12) 250 MCG Tab PO SCH (08:00)
[2018-03-12] MEDS: Cholecalciferol (Vitamin D3) 1,000 Unit Tab PO SCH (08:00)
[2018-03-12] MEDS: Omeprazole 20 MG Cap.CR PO SCH (08:00)
[2018-03-12 08:01] VITALS: BP 137/67
--- NOTE | 2018-03-13 02:38 | DISCH ---
PRIMARY DISCHARGE DIAGNOSIS: 1. Acute on chronic hypoxic and hypercapnic respiratory failure secondary to a chronic obstructive pulmonary disease exacerbation with severe chronic obstructive pulmonary disease. 2. Klebsiella urinary tract infection. 3. Delirium due to urinary tract infection and hypercapnia, improving. 4. Chronic severe chronic obstructive pulmonary disease, on chronic oxygen at least 2 L at home. 5. Polymyalgia rheumatica. 6. Hypokalemia. 7. Chronic diastolic heart failure, stable without exacerbation. 8. Paroxysmal atrial fibrillation with rapid ventricular rates, controlled. She is now back in a sinus rhythm, not on anticoagulation due to bleeding risk and chronic anemia. 9. Chronic anemia. 10.A 1.8 x 1.[address], could be community-acquired pneumonia. 11.Community-acquired pneumonia. 12.Weakness and fatigue related to acute illness. REASON FOR ADMISSION: On the date of admission, this 78-year-old came into the emergency room. She was unresponsive. She had recently been started on Bactrim for outpatient treatment of a UTI. She was found to be quite hypercapnic with CO2 levels up in the 66 range. She was started on BiPAP. These levels improved down to 53. She had been off BiPAP, but she has been on it for several hours overnight as her oxygen level tends to drop on the continuous monitoring and she is more of a mouth breather at night. Her cough and breathing seem to be better, but she tells me she just feels tired. This is what she mentioned a couple days ago. At the same point, we had already decreased her steroids to twice daily. No changes were made in her treatment yesterday but on the , we also changed her to oral Levaquin. She has been afebrile. She has had multiple previous admissions for pneumonia and COPD exacerbation and chronic anemia. We had even discussed hospice prior to this admission. She is in need of further cares with physical therapy. Her goal is to return home. Ultimately she may need to return home with hospice. In fact, her last admission was quite prolonged and she actually ended up in the custodial until about October. Otherwise, she is not having any pain. She had a Ma catheter initially but that was removed. She is voiding okay but does have some leakage at times. Her Ditropan was discontinued due to concern for retention and her recent UTI. Otherwise, she is continuing on nebulizer treatments every 4 hours as needed. She will be started on a flutter valve. She has been on Lovenox for DVT prophylaxis. DISCHARGE PLAN/INSTRUCTIONS: The patient is going over to swing bed for further therapies. Family conference will be arranged through the social studies department chair next week. Lab work will be repeated Friday. She will complete her last dose of Levaquin tomorrow. She will be on prednisone instead of IV, now 20 mg daily for at least another 5 days. We will taper as needed down to her previous dose of 4 mg daily for polymyalgia. Her recent ESR was only 36 and she is not having any pain. She will continue on Lovenox for DVT prophylaxis. PHYSICAL EXAMINATION: Vitals: Discharge vitals include a weight of 74.95 kg, pulse 70, blood pressure of 137/67, oxygen was 95 on 4 L, but she has been able to get down to at least 1 L at times. Her respiratory rate is 20. General: She is in no acute distress. Heart: Regular rate and rhythm with murmur. Pulmonary: Lung sounds are decreased bilaterally with rare expiratory wheezing. Her rhonchi have improved. Abdomen: Nondistended, nontender. Extremities: Warm and dry. No edema. Her left arm is examined. She does have some redness at the elbow area. No warmth. She has significant bruising over the hand but no pain. She has no IV in that left arm but did have a blood draw there. Mental Status: She is alert and orientated x3. Greater than 30 minutes spent on the discharge process. MKA: 03/12/2018 17:12:26 MODL: 03/13/2018 02:32:57 /[id number]
== END 2018-03-12 09:20 | disposition swing bed (61) | DRG 190 ==
LOC: VM.ED 11:59 → VM.MS 14:56
PROVIDERS: ADMIT Family Medicine; ATTEND Internal Medicine
PROC: 5A09357 Assistance with Respiratory Ventilation, Less than 24 Consecutive Hours, Continuous Positive Airway Pressure (ICD-10-PCS; principal; 2018-03-07)
DX: R53.1 Weakness (principal); R41.0 Disorientation, unspecified; J44.1 Chronic obstructive pulmonary disease with (acute) exacerbation; J18.9 Pneumonia, unspecified organism; J96.21 Acute and chronic respiratory failure with hypoxia; J96.22 Acute and chronic respiratory failure with hypercapnia; I50.9 Heart failure, unspecified; E78.00 Pure hypercholesterolemia, unspecified; R06.02 Shortness of breath; J44.9 Chronic obstructive pulmonary disease, unspecified; K21.9 Gastro-esophageal reflux disease without esophagitis; K57.90 Diverticulosis of intestine, part unspecified, without perforation or abscess without bleeding; M19.90 Unspecified osteoarthritis, unspecified site; F03.90 Unspecified dementia, unspecified severity, without behavioral disturbance, psychotic disturbance, mood disturbance, and anxiety; H91.90 Unspecified hearing loss, unspecified ear; N39.0 Urinary tract infection, site not specified; I50.32 Chronic diastolic (congestive) heart failure; J44.0 Chronic obstructive pulmonary disease with (acute) lower respiratory infection; M35.3 Polymyalgia rheumatica; I11.0 Hypertensive heart disease with heart failure; I48.0 Paroxysmal atrial fibrillation; I25.10 Atherosclerotic heart disease of native coronary artery without angina pectoris; Z66 Do not resuscitate; Z79.52 Long term (current) use of systemic steroids; Z99.81 Dependence on supplemental oxygen; M81.0 Age-related osteoporosis without current pathological fracture; I25.2 Old myocardial infarction; Z87.891 Personal history of nicotine dependence; B96.1 Klebsiella pneumoniae [K. pneumoniae] as the cause of diseases classified elsewhere; R31.9 Hematuria, unspecified; R91.1 Solitary pulmonary nodule; D63.8 Anemia in other chronic diseases classified elsewhere; Z79.899 Other long term (current) drug therapy; Z79.82 Long term (current) use of aspirin
CPT/HCPCS: 36415; 36600; 51702; 71045; 71275; 80048; 80053; 81001; 82550; 82803; 83605; 83735; 83880; 84484; 85007; 85025; 85027; 85652; 86140; 87040; 87086; 87088; 87186; 93005; 94640; 94660; 94760; 96374; 97162-GP; 97530-GP; 99284-GF; 99285; A9270-GY; J0696; J1650; J2920; J2930; J7030; J7050; J7620-GY; Q9967

== ENCOUNTER 2018-03-12 08:56 | Inpatient (IN) | payer MEDICARE, OTHER ==
[2018-03-12] MEDS ORDERED: Calcium Carbonate 750 MG Tab.Chew PO PRN (09:53)
[2018-03-12] MEDS ORDERED: Albuterol 0.083% 2.5 MG/3 ML Neb Soln NEB PRN (09:53)
[2018-03-12] MEDS ORDERED: Acetaminophen 325 MG Tab PO PRN (09:53)
[2018-03-12] MEDS: Albuterol 0.083% 2.5 MG/3 ML Neb Soln NEB SCH ×3 (10:49→19:24)
[2018-03-12] MEDS: Furosemide 20 MG Tab PO SCH (13:01)
[2018-03-12] MEDS: Arformoterol 15 MCG/2 ML Neb Soln INH SCH (19:20)
[2018-03-12] MEDS: Calcium Citrate/Vitamin D3 315 MG-250 Unit Tab PO SCH (19:20)
[2018-03-12] MEDS: Metoprolol Tartrate 50 MG Tab PO SCH (19:21)
[2018-03-12] MEDS: Simvastatin 10 MG Tab PO SCH (19:23)
[2018-03-12] MEDS: Budesonide 0.5 MG/2 ML Neb Susp NEB SCH (19:25)
[2018-03-12] MEDS: Sodium Chloride 0.9% 10 ML Syringe FLUSH PRN (19:33)
[2018-03-13] MEDS: Omeprazole 20 MG Cap.CR PO SCH (06:31)
[2018-03-13] MEDS ORDERED: Levofloxacin 250 MG Tab PO SCH (07:00)
[2018-03-13] MEDS: Albuterol 0.083% 2.5 MG/3 ML Neb Soln NEB SCH ×4 (07:10→19:25)
[2018-03-13] MEDS: Arformoterol 15 MCG/2 ML Neb Soln INH SCH ×2 (07:10→19:24)
[2018-03-13] MEDS: Budesonide 0.5 MG/2 ML Neb Susp NEB SCH ×2 (07:10→19:26)
[2018-03-13] MEDS ORDERED: Potassium Chloride 20 MEQ Tab.ER PO SCH (08:00)
[2018-03-13] MEDS ORDERED: Ascorbic Acid 500 MG Tab PO SCH (08:00)
[2018-03-13] MEDS ORDERED: Multivitamins with Iron/Calcium/Folic Acid/Minerals Tab PO SCH (08:00)
[2018-03-13] MEDS ORDERED: Cholecalciferol (Vitamin D3) 1,000 Unit Tab PO SCH (08:00)
[2018-03-13] MEDS: Metoprolol Tartrate 50 MG Tab PO SCH ×2 (08:03→19:23)
[2018-03-13] MEDS: predniSONE 20 MG Tab PO SCH (08:03)
[2018-03-13] MEDS: Cyanocobalamin (Vitamin B12) 250 MCG Tab PO SCH (08:03)
[2018-03-13] MEDS: Furosemide 40 MG Tab PO SCH (08:04)
[2018-03-13] MEDS: Magnesium Oxide 400 MG Tab PO SCH (08:04)
[2018-03-13] MEDS: Ferrous Sulfate 325 MG Tab PO SCH (08:04)
[2018-03-13] MEDS: Calcium Citrate/Vitamin D3 315 MG-250 Unit Tab PO SCH (08:05)
[2018-03-13] MEDS: Enoxaparin 40 MG/0.4 ML Syringe SUBCUT SCH (08:05)
[2018-03-13] MEDS: Aspirin 81 MG Tab.EC PO SCH (08:05)
[2018-03-13] MEDS: Furosemide 20 MG Tab PO SCH (12:12)
[2018-03-13] MEDS: Simvastatin 10 MG Tab PO SCH (19:23)
[2018-03-13] MEDS: Sodium Chloride 0.9% 10 ML Syringe FLUSH PRN (19:26)
--- NOTE | 2018-03-14 03:09 | PN ---
Progress Note for MIGUEL Perez RADHA Date: 03/13/2018 Room #: VM.217 SUBJECTIVE: This is an 78-year-old on swing bed after an acute stay for UTI and COPD exacerbation. She did use some BiPAP during the night but not because she needed or asked for it. It was just noted her oxygen saturations had been lower and so they had been putting it on. She would like to try it without. She states she is still having some shortness of breath but overall cough has not worsened. She is chronically on oxygen at home. She is not having any pain other than some pain in her stomach that started this morning after taking pills. She is having a hard time swallowing all her vitamins and supplements. She has been afebrile. OBJECTIVE: Vital Signs: Her weight is 74.7 kg, temperature is 97.6, pulse 65, blood pressure 127/59, respiratory rate 20, and O2 of 93% on 2 L. General: She is in no acute distress. Heart: Regular rate and rhythm with murmur. Pulmonary: Lung sounds are decreased especially in the bases with fine expiratory wheezing. Abdomen: Positive bowel sounds. Mildly distended but nontender. Extremities: Warm and dry. No edema. Mental Status: She is alert and orientated x3. ASSESSMENT AND PLAN: 1. Klebsiella urinary tract infection. She is taking her last dose of Levaquin today. 2. Acute on chronic hypoxic and hypercapnic respiratory failure, improving. She is still on prednisone 20 mg daily for at least another 4 days, then taper down to her 4 mg dose for polymyalgia. She will finish Levaquin today. She will continue her home nebulizers. 3. Delirium due to acute illness. This has resolved. She is mentating normally. 4. Polymyalgia rheumatica, stable without pain. 5. Hypokalemia. We will switch her over to some liquid potassium. 6. Chronic diastolic heart failure stable without exacerbation. We will continue her same Lasix. 7. Paroxysmal atrial fibrillation, rate controlled. She actually sounds to be back in a sinus rhythm. She is on Lovenox for deep venous thrombosis prophylaxis and aspirin. We will continue with the same. 8. Chronic anemia. 9. Lung mass. Will need outpatient workup with repeat CT in 3 months. 10.Weakness and deconditioning. She will continue swing bed for therapies. Plan: The patient will have lab work again Friday. We will arrange for a family conference next week. We will hold off on further BiPAP for now but restart if needed. MKA: 03/13/2018 08:43:03 MODL: 03/14/2018 03:02:49 /[id number]
[2018-03-14] MEDS: Omeprazole 20 MG Cap.CR PO SCH (06:15)
[2018-03-14] MEDS: Albuterol 0.083% 2.5 MG/3 ML Neb Soln NEB SCH ×4 (07:06→20:37)
[2018-03-14] MEDS: Budesonide 0.5 MG/2 ML Neb Susp NEB SCH ×2 (07:07→20:38)
[2018-03-14] MEDS: Arformoterol 15 MCG/2 ML Neb Soln INH SCH ×2 (07:07→20:37)
[2018-03-14] MEDS: Sodium Chloride 0.9% 10 ML Syringe FLUSH PRN (08:01)
[2018-03-14] MEDS: Enoxaparin 40 MG/0.4 ML Syringe SUBCUT SCH (08:03)
[2018-03-14] MEDS: Cyanocobalamin (Vitamin B12) 250 MCG Tab PO SCH (08:06)
[2018-03-14] MEDS: predniSONE 20 MG Tab PO SCH (08:06)
[2018-03-14] MEDS: Potassium Chloride 10% 20 MEQ/15 ML Soln 15 ML UD Cup PO SCH (08:06)
[2018-03-14] MEDS: Metoprolol Tartrate 50 MG Tab PO SCH ×2 (08:06→20:37)
[2018-03-14] MEDS: Magnesium Oxide 400 MG Tab PO SCH (08:06)
[2018-03-14] MEDS: Aspirin 81 MG Tab.EC PO SCH (08:09)
[2018-03-14] MEDS: Furosemide 40 MG Tab PO SCH (08:09)
[2018-03-14] MEDS: Furosemide 20 MG Tab PO SCH (11:25)
[2018-03-14] MEDS: Simvastatin 10 MG Tab PO SCH (20:37)
[2018-03-15] MEDS: Omeprazole 20 MG Cap.CR PO SCH (06:25)
[2018-03-15] MEDS: Budesonide 0.5 MG/2 ML Neb Susp NEB SCH ×2 (07:01→20:05)
[2018-03-15] MEDS: Albuterol 0.083% 2.5 MG/3 ML Neb Soln NEB SCH ×4 (07:01→20:04)
[2018-03-15] MEDS: Arformoterol 15 MCG/2 ML Neb Soln INH SCH ×2 (07:02→20:05)
[2018-03-15] MEDS: Furosemide 40 MG Tab PO SCH (07:24)
[2018-03-15] MEDS: Metoprolol Tartrate 50 MG Tab PO SCH ×2 (07:24→20:05)
[2018-03-15] MEDS: Magnesium Oxide 400 MG Tab PO SCH (07:24)
[2018-03-15] MEDS: Aspirin 81 MG Tab.EC PO SCH (07:24)
[2018-03-15] MEDS: predniSONE 20 MG Tab PO SCH (07:24)
[2018-03-15] MEDS: Cyanocobalamin (Vitamin B12) 250 MCG Tab PO SCH (07:24)
[2018-03-15] MEDS: Potassium Chloride 10% 20 MEQ/15 ML Soln 15 ML UD Cup PO SCH (07:24)
[2018-03-15] MEDS: Enoxaparin 40 MG/0.4 ML Syringe SUBCUT SCH (07:25)
[2018-03-15] MEDS: Sodium Chloride 0.9% 10 ML Syringe FLUSH PRN (07:25)
[2018-03-15] MEDS: Furosemide 20 MG Tab PO SCH (11:05)
[2018-03-15] MEDS: Simvastatin 10 MG Tab PO SCH (20:05)
[2018-03-16] MEDS: Omeprazole 20 MG Cap.CR PO SCH (06:53)
[2018-03-16] MEDS: Arformoterol 15 MCG/2 ML Neb Soln INH SCH ×2 (06:57→20:26)
[2018-03-16] MEDS: Albuterol 0.083% 2.5 MG/3 ML Neb Soln NEB SCH ×4 (06:57→20:26)
[2018-03-16] MEDS: Budesonide 0.5 MG/2 ML Neb Susp NEB SCH ×2 (06:57→20:26)
[2018-03-16 07:07] LABS: CHLORIDE,CL 90 mmol/L (98-107); SODIUM,NA 134 mmol/L (136-145)
[2018-03-16 07:31] LABS: ANION GAP 2.7 mmol/L (10-20)
[2018-03-16] MEDS: Cyanocobalamin (Vitamin B12) 250 MCG Tab PO SCH (08:16)
[2018-03-16] MEDS: Ferrous Sulfate 325 MG Tab PO SCH (08:16)
[2018-03-16] MEDS: Furosemide 40 MG Tab PO SCH (08:16)
[2018-03-16] MEDS: Magnesium Oxide 400 MG Tab PO SCH (08:16)
[2018-03-16] MEDS: Potassium Chloride 10% 20 MEQ/15 ML Soln 15 ML UD Cup PO SCH ×2 (08:16→17:37)
[2018-03-16] MEDS: Enoxaparin 40 MG/0.4 ML Syringe SUBCUT SCH (08:17)
[2018-03-16] MEDS: predniSONE 20 MG Tab PO SCH (08:17)
[2018-03-16] MEDS: Aspirin 81 MG Tab.EC PO SCH (08:17)
[2018-03-16] MEDS: Metoprolol Tartrate 50 MG Tab PO SCH ×2 (08:17→20:27)
[2018-03-16] MEDS: Furosemide 20 MG Tab PO SCH (11:52)
[2018-03-16] MEDS: Simvastatin 10 MG Tab PO SCH (20:26)
[2018-03-17] MEDS: Omeprazole 20 MG Cap.CR PO SCH (06:25)
[2018-03-17] MEDS: Albuterol 0.083% 2.5 MG/3 ML Neb Soln NEB SCH ×4 (07:04→19:43)
[2018-03-17] MEDS: Budesonide 0.5 MG/2 ML Neb Susp NEB SCH ×2 (07:05→19:43)
[2018-03-17] MEDS: Arformoterol 15 MCG/2 ML Neb Soln INH SCH ×2 (07:05→19:43)
[2018-03-17] MEDS: Potassium Chloride 10% 20 MEQ/15 ML Soln 15 ML UD Cup PO SCH ×2 (07:50→18:36)
[2018-03-17] MEDS: Aspirin 81 MG Tab.EC PO SCH (07:51)
[2018-03-17] MEDS: Cyanocobalamin (Vitamin B12) 250 MCG Tab PO SCH (07:51)
[2018-03-17] MEDS: Magnesium Oxide 400 MG Tab PO SCH ×2 (07:51→19:42)
[2018-03-17] MEDS: predniSONE 20 MG Tab PO SCH (07:51)
[2018-03-17] MEDS: Furosemide 40 MG Tab PO SCH (07:51)
[2018-03-17] MEDS: Metoprolol Tartrate 50 MG Tab PO SCH ×2 (07:52→19:42)
[2018-03-17] MEDS: Enoxaparin 40 MG/0.4 ML Syringe SUBCUT SCH (07:58)
[2018-03-17 09:33] LABS: CHLORIDE,CL 89 mmol/L (98-107); SODIUM,NA 131 mmol/L (136-145)
[2018-03-17 09:51] LABS: ANION GAP 5.2 mmol/L (10-20)
[2018-03-17] MEDS: Furosemide 20 MG Tab PO SCH (11:51)
--- NOTE | 2018-03-17 14:12 | PN ---
Progress Note for MIGUEL Perez RADHA Date: 03/17/2018 Room #: VM.217 SUBJECTIVE: This is an 78-year-old, on swing bed. Yesterday, her potassium was low at 2.7. We increased her supplements. It is up to 4.2 today. She is still feeling tired, but not as short of breath. She feels a little achy in the shoulders, but not like her polymyalgia pain. OBJECTIVE: Vital Signs: Her temperature 97.5, pulse 63, blood pressure 123/56, respiratory rate 20, O2 of 98% on 2 L. General: She is in no acute distress. Heart: Regular rate and rhythm with murmur. Lungs: Sounds are decreased but no crackles or wheezes appreciated. Abdomen: Positive bowel sounds. Nontender. Extremities: Warm and dry. No edema. Mental Status: Alert and orientated x3. LABORATORY DATA: For today will include white count went up to 15.1, hemoglobin 11.6, platelets 315. Sodium 131, potassium 4.2, chloride 89, bicarb 41, BUN 9, creatinine 0.9, glucose 167, magnesium 1.5, calcium 8.6. ASSESSMENT AND PLAN: 1. Klebsiella urinary tract infection, treated with Levaquin, she finished on the . 2. Acute on chronic hypoxic and hypercapnic respiratory failure secondary to a chronic obstructive pulmonary disease exacerbation. We will decrease her prednisone from 20 to 10 mg daily today. 3. Polymyalgia rheumatica, seems to be stable. We will get an ESR with her next lab work on Friday. Likely, we will decrease her prednisone down to 5 mg then. 4. Delirium due to acute illness, resolving. She has deconditioning, and she is working with PT. 5. Hypokalemia, replaced. We will decrease her potassium supplements to 20 b.i.d. 6. Hypomagnesemia. We will increase magnesium up to twice daily. 7. Chronic diastolic heart failure, stable without exacerbation. She will continue on her same Lasix doses. 8. Paroxysmal atrial fibrillation. She seems to be back in a sinus rhythm. She is on aspirin for prophylaxis given her chronic anemia and bleeding risk. 9. Chronic anemia. 10.Lung mass. Plan for outpatient workup. We will also have a family conference regarding her overall care later this week on . The patient seems to be doing well without BiPAP which she had been using only at night. We will continue to focus on therapies and strengthening. Likely, she will go home or to [facility] with [facility] when able. MKA: 03/17/2018 12:56:40 MODL: 03/17/2018 13:13:45 /[id number]
[2018-03-17] MEDS: Simvastatin 10 MG Tab PO SCH (19:43)
[2018-03-18] MEDS: Omeprazole 20 MG Cap.CR PO SCH ×2 (05:50→06:06)
[2018-03-18] MEDS: Budesonide 0.5 MG/2 ML Neb Susp NEB SCH ×2 (07:11→19:28)
[2018-03-18] MEDS: Arformoterol 15 MCG/2 ML Neb Soln INH SCH ×2 (07:11→19:25)
[2018-03-18] MEDS: Albuterol 0.083% 2.5 MG/3 ML Neb Soln NEB SCH ×4 (07:11→19:26)
[2018-03-18] MEDS: Magnesium Oxide 400 MG Tab PO SCH ×2 (07:42→19:25)
[2018-03-18] MEDS: Aspirin 81 MG Tab.EC PO SCH (07:42)
[2018-03-18] MEDS: Potassium Chloride 10% 20 MEQ/15 ML Soln 15 ML UD Cup PO SCH ×2 (07:42→17:18)
[2018-03-18] MEDS: predniSONE 10 MG Tab PO SCH (07:42)
[2018-03-18] MEDS: Cyanocobalamin (Vitamin B12) 250 MCG Tab PO SCH (07:42)
[2018-03-18] MEDS: Ferrous Sulfate 325 MG Tab PO SCH (07:43)
[2018-03-18] MEDS: Metoprolol Tartrate 50 MG Tab PO SCH ×2 (07:43→19:25)
[2018-03-18] MEDS: Enoxaparin 40 MG/0.4 ML Syringe SUBCUT SCH (07:43)
[2018-03-18] MEDS: Furosemide 40 MG Tab PO SCH (07:43)
[2018-03-18] MEDS: Furosemide 20 MG Tab PO SCH (11:16)
[2018-03-18] MEDS: Simvastatin 10 MG Tab PO SCH (19:25)
[2018-03-19] MEDS: Omeprazole 20 MG Cap.CR PO SCH (06:05)
[2018-03-19] MEDS: Arformoterol 15 MCG/2 ML Neb Soln INH SCH ×2 (07:08→19:33)
[2018-03-19] MEDS: Albuterol 0.083% 2.5 MG/3 ML Neb Soln NEB SCH ×4 (07:08→19:33)
[2018-03-19] MEDS: Budesonide 0.5 MG/2 ML Neb Susp NEB SCH ×2 (07:08→19:33)
[2018-03-19] MEDS: Magnesium Oxide 400 MG Tab PO SCH ×2 (07:36→19:34)
[2018-03-19] MEDS: Potassium Chloride 10% 20 MEQ/15 ML Soln 15 ML UD Cup PO SCH ×2 (07:36→17:48)
[2018-03-19] MEDS: Metoprolol Tartrate 50 MG Tab PO SCH ×2 (07:36→19:35)
[2018-03-19] MEDS: Furosemide 40 MG Tab PO SCH (07:36)
[2018-03-19] MEDS: predniSONE 10 MG Tab PO SCH (07:36)
[2018-03-19] MEDS: Cyanocobalamin (Vitamin B12) 250 MCG Tab PO SCH (07:36)
[2018-03-19] MEDS: Enoxaparin 40 MG/0.4 ML Syringe SUBCUT SCH (07:36)
[2018-03-19] MEDS: Aspirin 81 MG Tab.EC PO SCH (07:36)
[2018-03-19] MEDS: Furosemide 20 MG Tab PO SCH (12:14)
[2018-03-19] MEDS ORDERED: LORazepam 0.5 MG Tab PO PRN (16:45)
--- NOTE | 2018-03-19 18:39 | PN ---
Progress Note for MIGUEL GARCIA Date: 03/19/2018 Room #: VM.217 SUBJECTIVE: This is an 78-year-old on swing bed for further strengthening after a UTI and COPD exacerbation. We held a family conference today to go over goals of care. The patient seems to be improving. She is gaining some strength. Walking with PT now over 7 feet. She otherwise is having continued problems with urinary incontinence and then not being able to go when she is using the bathroom. She has had a history of urinary retention. She has been on Ditropan in the past to help with the incontinence, but it led to bladder infections. The patient at this point is ready for a catheter to prevent further skin breakdown. She also is having a lot of trouble sleeping at night. She continues to be fatigued during the day and feels that if she slept better, this might improve. Otherwise, her potassium levels were back up into the normal range. She was due for lab work tomorrow, but after further discussion, she wants to wait till Friday. OBJECTIVE: Vital Signs: Her temperature is 97.3, pulse 72, blood pressure 119/70, respiratory rate 19, and O2 of 97% on 2 L. ASSESSMENT: 1. Urinary retention with incontinence. We will place a Ma. 2. Insomnia. We will try some Ativan 0.5 at bedtime and have it available p.r.n.. 3. For her other chronic comorbidities, the polymyalgia, she is on 10 mg of prednisone. We will repeat the level Friday and taper her down further if able. 4. Delirium due to her acute illness, resolved. 5. Acute on chronic hypoxic and hypercapnic respiratory failure, improving. Discussed with family that we will monitor and follow clinically. Her CO2 level is likely not going to return to normal, but we will not utilize the BiPAP or CPAP, as long as she is doing well because she does not really like it or tolerate it. 6. Hypomagnesemia, on replacement. 7. Chronic diastolic heart failure, stable on Lasix. 8. Paroxysmal atrial fibrillation. She has been on aspirin. 9. Chronic anemia. 10.Lung mass. Plan for outpatient further workup with a CT scan in 3 months, which would be May. Discussed that she would not be a candidate for chemotherapy treatments. PLAN: At this point, the patient will continue on swing bed cares with PT. We will likely consult OT next week. The long-term plan would be [facility] therapies when she no longer meets acute therapy needs here. She is also on Lovenox for DVT prophylaxis. We will likely discontinue that when she is up and moving more. MKA: 03/19/2018 16:49:03 MODL: 03/19/2018 17:07:07 /[id number]
[2018-03-19] MEDS: Simvastatin 10 MG Tab PO SCH (19:34)
[2018-03-19] MEDS: LORazepam 0.5 MG Tab PO SCH (19:34)
[2018-03-20] MEDS: Omeprazole 20 MG Cap.CR PO SCH (06:00)
[2018-03-20] MEDS: Albuterol 0.083% 2.5 MG/3 ML Neb Soln NEB SCH ×4 (07:07→19:23)
[2018-03-20] MEDS: Budesonide 0.5 MG/2 ML Neb Susp NEB SCH ×2 (07:08→19:23)
[2018-03-20] MEDS: Arformoterol 15 MCG/2 ML Neb Soln INH SCH ×2 (07:08→19:23)
[2018-03-20] MEDS: Cyanocobalamin (Vitamin B12) 250 MCG Tab PO SCH (07:49)
[2018-03-20] MEDS: Potassium Chloride 10% 20 MEQ/15 ML Soln 15 ML UD Cup PO SCH ×2 (07:49→17:44)
[2018-03-20] MEDS: Magnesium Oxide 400 MG Tab PO SCH ×2 (07:49→19:24)
[2018-03-20] MEDS: Metoprolol Tartrate 50 MG Tab PO SCH ×2 (07:49→19:24)
[2018-03-20] MEDS: predniSONE 10 MG Tab PO SCH (07:49)
[2018-03-20] MEDS: Aspirin 81 MG Tab.EC PO SCH (07:49)
[2018-03-20] MEDS: Furosemide 40 MG Tab PO SCH (07:49)
[2018-03-20] MEDS: Ferrous Sulfate 325 MG Tab PO SCH (07:49)
[2018-03-20] MEDS: Enoxaparin 40 MG/0.4 ML Syringe SUBCUT SCH (07:50)
[2018-03-20] MEDS: Furosemide 20 MG Tab PO SCH (12:13)
[2018-03-20] MEDS: LORazepam 0.5 MG Tab PO SCH (19:24)
[2018-03-20] MEDS: Simvastatin 10 MG Tab PO SCH (19:24)
[2018-03-21] MEDS: Omeprazole 20 MG Cap.CR PO SCH (06:12)
[2018-03-21] MEDS: Albuterol 0.083% 2.5 MG/3 ML Neb Soln NEB SCH ×4 (06:59→20:06)
[2018-03-21] MEDS: Arformoterol 15 MCG/2 ML Neb Soln INH SCH ×2 (06:59→20:06)
[2018-03-21] MEDS: Budesonide 0.5 MG/2 ML Neb Susp NEB SCH ×2 (06:59→20:06)
[2018-03-21] MEDS: Potassium Chloride 10% 20 MEQ/15 ML Soln 15 ML UD Cup PO SCH ×2 (07:18→17:55)
[2018-03-21] MEDS: Cyanocobalamin (Vitamin B12) 250 MCG Tab PO SCH (07:18)
[2018-03-21] MEDS: Furosemide 40 MG Tab PO SCH (07:19)
[2018-03-21] MEDS: Metoprolol Tartrate 50 MG Tab PO SCH ×2 (07:19→20:06)
[2018-03-21] MEDS: Magnesium Oxide 400 MG Tab PO SCH ×2 (07:19→20:06)
[2018-03-21] MEDS: Aspirin 81 MG Tab.EC PO SCH (07:19)
[2018-03-21] MEDS: Enoxaparin 40 MG/0.4 ML Syringe SUBCUT SCH (07:19)
[2018-03-21] MEDS: predniSONE 10 MG Tab PO SCH (07:19)
[2018-03-21 08:01] LABS: CHLORIDE,CL 94 mmol/L (98-107); SODIUM,NA 134 mmol/L (136-145)
[2018-03-21 08:06] LABS: ANION GAP 4.6 mmol/L (10-20)
[2018-03-21] MEDS: Furosemide 20 MG Tab PO SCH (11:01)
[2018-03-21] MEDS: Simvastatin 10 MG Tab PO SCH (20:06)
[2018-03-21] MEDS: LORazepam 0.5 MG Tab PO SCH (20:06)
[2018-03-22] MEDS: Omeprazole 20 MG Cap.CR PO SCH (06:05)
[2018-03-22] MEDS: Arformoterol 15 MCG/2 ML Neb Soln INH SCH ×2 (07:00→19:52)
[2018-03-22] MEDS: Albuterol 0.083% 2.5 MG/3 ML Neb Soln NEB SCH ×4 (07:00→19:52)
[2018-03-22] MEDS: Budesonide 0.5 MG/2 ML Neb Susp NEB SCH ×2 (07:00→19:52)
[2018-03-22] MEDS: Aspirin 81 MG Tab.EC PO SCH (07:45)
[2018-03-22] MEDS: Magnesium Oxide 400 MG Tab PO SCH ×2 (07:45→19:52)
[2018-03-22] MEDS: Enoxaparin 40 MG/0.4 ML Syringe SUBCUT SCH (07:45)
[2018-03-22] MEDS: Potassium Chloride 10% 20 MEQ/15 ML Soln 15 ML UD Cup PO SCH ×2 (07:45→18:25)
[2018-03-22] MEDS: Furosemide 40 MG Tab PO SCH (07:45)
[2018-03-22] MEDS: Cyanocobalamin (Vitamin B12) 250 MCG Tab PO SCH (07:45)
[2018-03-22] MEDS: predniSONE 10 MG Tab PO SCH (07:45)
[2018-03-22] MEDS: Metoprolol Tartrate 50 MG Tab PO SCH ×2 (07:46→19:52)
[2018-03-22] MEDS: Furosemide 20 MG Tab PO SCH (11:15)
[2018-03-22] MEDS: Simvastatin 10 MG Tab PO SCH (19:51)
[2018-03-22] MEDS: LORazepam 0.5 MG Tab PO SCH (19:52)
[2018-03-23] MEDS: Omeprazole 20 MG Cap.CR PO SCH (06:02)
[2018-03-23] MEDS: Albuterol 0.083% 2.5 MG/3 ML Neb Soln NEB SCH ×4 (07:17→20:02)
[2018-03-23] MEDS: Arformoterol 15 MCG/2 ML Neb Soln INH SCH ×2 (07:18→20:02)
[2018-03-23] MEDS: Budesonide 0.5 MG/2 ML Neb Susp NEB SCH ×2 (07:18→20:07)
[2018-03-23] MEDS: Furosemide 40 MG Tab PO SCH (08:19)
[2018-03-23] MEDS: Cyanocobalamin (Vitamin B12) 250 MCG Tab PO SCH (08:19)
[2018-03-23] MEDS: predniSONE 10 MG Tab PO SCH (08:19)
[2018-03-23] MEDS: Metoprolol Tartrate 50 MG Tab PO SCH ×2 (08:19→20:04)
[2018-03-23] MEDS: Aspirin 81 MG Tab.EC PO SCH (08:19)
[2018-03-23] MEDS: Magnesium Oxide 400 MG Tab PO SCH ×2 (08:19→20:03)
[2018-03-23] MEDS: Enoxaparin 40 MG/0.4 ML Syringe SUBCUT SCH (08:20)
[2018-03-23] MEDS: Potassium Chloride 10% 20 MEQ/15 ML Soln 15 ML UD Cup PO SCH ×2 (08:20→17:09)
[2018-03-23] MEDS: Ferrous Sulfate 325 MG Tab PO SCH (08:20)
[2018-03-23] MEDS: Nystatin Crm 30 GM Tube TOP SCH ×2 (08:34→20:03)
[2018-03-23] MEDS: Furosemide 20 MG Tab PO SCH (11:00)
--- NOTE | 2018-03-23 17:30 | PCM.SN ---
- Free Text/Narrative Note: Groin area examined and nystatin started along with A and D to assist with further healing of her redness. Ma to continue due to incontinence to prevent further skin breakdown. Plan OT and then NH when she completes therapies may do another round of blood work prior to that but it looked good on 03/21 and prednisone has been decreased to 7.5 mg daily likely will be 5 mg on d/c.
[2018-03-23] MEDS: Simvastatin 10 MG Tab PO SCH (20:04)
[2018-03-23] MEDS: LORazepam 0.5 MG Tab PO SCH (20:07)
[2018-03-24] MEDS: Omeprazole 20 MG Cap.CR PO SCH (06:14)
[2018-03-24] MEDS: Albuterol 0.083% 2.5 MG/3 ML Neb Soln NEB SCH ×4 (07:13→19:34)
[2018-03-24] MEDS: Budesonide 0.5 MG/2 ML Neb Susp NEB SCH ×2 (07:13→19:34)
[2018-03-24] MEDS: Arformoterol 15 MCG/2 ML Neb Soln INH SCH ×2 (07:14→19:34)
[2018-03-24] MEDS ORDERED: predniSONE 5 MG Tab PO SCH (08:00)
[2018-03-24] MEDS: Potassium Chloride 10% 20 MEQ/15 ML Soln 15 ML UD Cup PO SCH ×2 (08:03→18:06)
[2018-03-24] MEDS: Cyanocobalamin (Vitamin B12) 250 MCG Tab PO SCH (08:03)
[2018-03-24] MEDS: Furosemide 40 MG Tab PO SCH (08:03)
[2018-03-24] MEDS: Metoprolol Tartrate 50 MG Tab PO SCH ×2 (08:04→19:33)
[2018-03-24] MEDS: Magnesium Oxide 400 MG Tab PO SCH ×2 (08:04→19:33)
[2018-03-24] MEDS: Aspirin 81 MG Tab.EC PO SCH (08:04)
[2018-03-24] MEDS: Enoxaparin 40 MG/0.4 ML Syringe SUBCUT SCH (08:05)
[2018-03-24] MEDS: Nystatin Crm 30 GM Tube TOP SCH ×2 (08:05→19:34)
[2018-03-24] MEDS: Furosemide 20 MG Tab PO SCH (13:24)
[2018-03-24] MEDS: LORazepam 0.5 MG Tab PO SCH (19:34)
[2018-03-24] MEDS: Simvastatin 10 MG Tab PO SCH (19:34)
[2018-03-24] MEDS ORDERED: predniSONE 5 MG Tab PO ONE (20:22)
--- NOTE | 2018-03-24 22:37 | PCM.PN ---
- General Info Date of Service: 03/24/18 Admission Dx/Problem (Free Text): Admitted for copd exacerbation with hypercapnea, confusion, and UTI. Has completed ABX is on swing bed for therapies. Subjective Update: PT discharged yesterday is working with OT but family prefers transfer to [facility] to resume therapies so plan is for tomorrow however her prednisone was decreased from 10 to 7.5 mg yesterday and she is wheezing more this afternoon. She has had a neb and it helps some. She is using the flutter valve. Denies any SOB just feels breathing is a little tighter. No cough, no fevers. NO chest pain. Live is in but is leaking. Functional Status: Reports: Tolerating Diet - Review of Systems General: Reports: Fatigue HEENT: Reports: No Symptoms Pulmonary: Reports: Wheezing Cardiovascular: Reports: Dyspnea on Exertion. Denies: Chest Pain Gastrointestinal: Reports: No Symptoms - Patient Data Vitals - Most Recent: Last Vital Signs Temp 97.4 F 03/24/18 05:51 Pulse 64 03/24/18 19:33 Resp 19 03/24/18 05:51 BP 142/63 H 03/24/18 19:33 Pulse Ox 95 03/24/18 07:14 Weight - Most Recent: 71.214 kg I&O - Last 24 Hours: Intake & Output 03/24/18 03/24/18 03/24/18 06:59 14:59 22:59 Intake Total 450 360 240 Output Total 980 650 650 Balance -530 -290 -410 Med Orders - Current: Current Medications Acetaminophen (Tylenol) 650 mg PO Q4H PRN PRN Reason: Pain (Mild 1-3)/fever Last Admin: 03/22/18 07:46 Dose: 650 mg Albuterol (Proventil Neb Soln) 2.5 mg NEB Q4H PRN PRN Reason: Shortness of Breath Albuterol (Proventil Neb Soln) 2.5 mg NEB QIDRT [facility] Last Admin: 03/24/18 19:34 Dose: 2.5 mg Arformoterol Tartrate (Brovana) 15 mcg INH BIDRT [facility] Last Admin: 03/24/18 19:34 Dose: 15 mcg Aspirin (Halfprin) 81 mg PO DAILY [facility] Last Admin: 03/24/18 08:04 Dose: 81 mg Budesonide (Pulmicort) 0.5 mg NEB BIDRT [facility] Last Admin: 03/24/18 19:34 Dose: 0.5 mg Calcium Carbonate/Glycine (Tums Extra Strength) 750 mg PO Q4HR PRN PRN Reason: Dyspepsia Cyanocobalamin (Vitamin B12) 500 mcg PO DAILY [facility] Last Admin: 03/24/18 08:03 Dose: 500 mcg Ferrous Sulfate (Ferrous Sulfate) 325 mg PO MoWeFr@0800 [facility] Last Admin: 03/23/18 08:20 Dose: 325 mg Furosemide (Lasix) 40 mg PO DAILY [facility] Last Admin: 03/24/18 08:03 Dose: 40 mg Furosemide (Lasix) 20 mg PO DAILY@12 [facility] Last Admin: 03/24/18 13:24 Dose: 20 mg Lorazepam (Ativan) 0.5 mg PO BEDTIME [facility] Last Admin: 03/24/18 19:34 Dose: 0.5 mg Lorazepam (Ativan) 0.5 mg PO Q4H PRN PRN Reason: Insomnia Magnesium Oxide (Magnesium Oxide) 400 mg PO BID [facility] Last Admin: 03/24/18 19:33 Dose: 400 mg Metoprolol Tartrate (Lopressor) 50 mg PO BID [facility] Last Admin: 03/24/18 19:33 Dose: 50 mg Nystatin (Nystatin Crm) 0 gm TOP BID [facility] Last Admin: 03/24/18 19:34 Dose: 1 applic Omeprazole (Omeprazole) 20 mg PO DAILY@0700 [facility] Last Admin: 03/24/18 06:14 Dose: 20 mg Potassium Chloride (Potassium Chloride Solution) 20 meq PO BIDMEALS [facility] Last Admin: 03/24/18 18:06 Dose: 20 meq Prednisone (Prednisone) 7.5 mg PO WITHBREAKFAST [facility] Simvastatin (Zocor) 10 mg PO BEDTIME [facility] Last Admin: 03/24/18 19:34 Dose: 10 mg Sodium Chloride (Saline Flush) 10 ml FLUSH ASDIRECTED PRN PRN Reason: Keep Vein Open Last Admin: 03/15/18 07:25 Dose: 10 ml Discontinued Medications Ascorbic Acid (Vitamin C) 500 mg PO DAILY [facility] Last Admin: 03/13/18 08:04 Dose: 500 mg Calcium Citrate (Calcium Citrate + D) 1 tab PO BID [facility] Last Admin: 03/13/18 08:05 Dose: 1 tab Cholecalciferol (Vitamin D3) 2,000 units PO DAILY [facility] Last Admin: 03/13/18 08:03 Dose: 2,000 units Enoxaparin Sodium (Lovenox) 40 mg SUBCUT DAILY [facility] Last Admin: 03/24/18 08:05 Dose: 40 mg Levofloxacin (Levaquin) 250 mg PO DAILY@0700 [facility] Stop: 03/13/18 07:01 Last Admin: 03/13/18 06:30 Dose: 250 mg Magnesium Oxide (Magnesium Oxide) 400 mg PO DAILY [facility] Last Admin: 03/17/18 07:51 Dose: 400 mg Multivitamins/Minerals (Thera M Plus) 1 tab PO DAILY [facility] Last Admin: 03/13/18 08:04 Dose: 1 tab Potassium Chloride (Klor-Con M20) 20 meq PO DAILY [facility] Last Admin: 03/13/18 08:04 Dose: 20 meq Potassium Chloride (Potassium Chloride Solution) 20 meq PO DAILY [facility] Last Admin: 03/15/18 07:24 Dose: 20 meq Potassium Chloride (Potassium Chloride Solution) 40 meq PO BIDMEALS [facility] Last Admin: 03/17/18 07:50 Dose: 40 meq Prednisone (Prednisone) 20 mg PO WITHBREAKFAST [facility] Last Admin: 03/17/18 07:51 Dose: 20 mg Prednisone (Prednisone) 10 mg PO WITHBREAKFAST [facility] Last Admin: 03/23/18 08:19 Dose: 10 mg Prednisone (Prednisone) 7.5 mg PO WITHBREAKFAST [facility] Last Admin: 03/24/18 08:04 Dose: 7.5 mg Prednisone (Prednisone) 5 mg PO WITHBREAKFAST [facility] Prednisone (Prednisone) 5 mg PO ONETIME ONE Stop: 03/24/18 20:23 Last Admin: 03/24/18 20:47 Dose: 5 mg - Exam Quality Assessment: Supplemental Oxygen General: Alert, Oriented, Cooperative, No Acute Distress Neck: Supple, Trachea Midline, No JVD Lungs: Normal Respiratory Effort, Decreased Breath Sounds, Wheezing Cardiovascular: Regular Rate, Regular Rhythm, Murmurs Extremities: Normal Inspection, No Pedal Edema Skin: Warm, Dry Psy/Mental Status: Alert, Normal Affect - Problem List Review Problem List Initiated/Reviewed/Updated: Yes - My Orders Last 24 Hours: My Active Orders 03/24/18 13:02 Ready for Discharge [RC] PER UNIT ROUTINE 03/24/18 13:03 Ready for Discharge [RC] PER UNIT ROUTINE 03/24/18 21:29 Chest 2V [CR] Routine 03/25/18 08:00 predniSONE 7.5 mg PO WITHBREAKFAST 03/26/18 05:15 BASIC METABOLIC PANEL,BMP [CHEM] AM CBC WITH AUTO DIFF [HEME] AM - Assessment Assessment:: Wheezing with known severe COPD continue nebs consider increasing prednisone again if needed. NO other symptoms to warrant ABX for exacerbation. 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 fib Urinary retention and incontinence Martina interigo in the groin Deconditioning Isaac nodule PMR without current symptoms but on prednisone also for COPD DVT prophylaxis has been on Lovenox Chronic anemia Plan: [facility] if stable If wheezing or breathing worsens repeat a CXR NO coumadin due to bleeding risk, continue ASA Urology referral placed change live in [address] of the lungs again in May Continue therapies at the [facility] we had a family conference last week and if her condition worsens I would recommend hospice care Oxygen at 2L she actually was using 3-3.5 at home and her sats have been high 90s on 2 L Follow up on [place] rounds Lab planned for next week Lovenox will not be continued at the [facility] she actually has quite a bit of bruising on her arms but no bleeding
[2018-03-25] MEDS: Omeprazole 20 MG Cap.CR PO SCH (06:12)
[2018-03-25 06:17] VITALS: BP 158/87
[2018-03-25] MEDS: Albuterol 0.083% 2.5 MG/3 ML Neb Soln NEB SCH (06:45)
[2018-03-25] MEDS: Budesonide 0.5 MG/2 ML Neb Susp NEB SCH (06:45)
[2018-03-25] MEDS: Arformoterol 15 MCG/2 ML Neb Soln INH SCH (06:45)
[2018-03-25] MEDS: Aspirin 81 MG Tab.EC PO SCH (07:46)
[2018-03-25] MEDS: Ferrous Sulfate 325 MG Tab PO SCH (07:46)
[2018-03-25] MEDS: Furosemide 40 MG Tab PO SCH (07:47)
[2018-03-25] MEDS: Metoprolol Tartrate 50 MG Tab PO SCH (07:47)
[2018-03-25] MEDS: Magnesium Oxide 400 MG Tab PO SCH (07:48)
[2018-03-25] MEDS: Cyanocobalamin (Vitamin B12) 250 MCG Tab PO SCH (07:48)
[2018-03-25] MEDS: Potassium Chloride 10% 20 MEQ/15 ML Soln 15 ML UD Cup PO SCH (07:48)
[2018-03-25] MEDS: Nystatin Crm 30 GM Tube TOP SCH (07:49)
[2018-03-25] MEDS ORDERED: predniSONE 5 MG Tab PO SCH ×2 (08:00)
--- NOTE | 2018-03-25 13:08 | PCM.DCSUM1 ---
Discharge Summary - Hospital Course Free Text/Narrative:: Patient admitted for further therapies on swing bed after an acute stay. Patient seen and examined on 03/24 for discharge. She is going to [facility] for further therapies. Did get an extra 5 mg dose of prednisone last night along with her regular nebs for wheezing. Her CXR done this AM did show mild vascular congestion and she is on her same doses of lasix. She still has a 1.8 cm left upper lobe nodule and will have a repeat CT in May. Diagnosis: Stroke: No - Discharge Data Discharge Date: 03/25/18 Discharge Disposition: DC/Tfer to [place] [id number] Condition: Fair - Discharge Diagnosis/Problem(s) (1) COPD, Moderate chronic obstructive pulmonary disease SNOMED Code(s): 009315529 ICD Code: J44.9 - CHRONIC OBSTRUCTIVE PULMONARY DISEASE, UNSPECIFIED Status : Chronic Priority: Medium (2) Delirium SNOMED Code(s): 7235914 ICD Code: R41.0 - DISORIENTATION, UNSPECIFIED Status: Acute Priority: High (3) Generalized weakness SNOMED Code(s): 27370395 ICD Code: R53.1 - WEAKNESS Status: Acute Priority: Medium Problem Details: This is related to her acute admission as well as her underlying comorbidities. Physical therapy has been working with her. Although she has made some gains, it is not felt she will be prepared for dismissal home any time soon. (4) Hypercapnemia SNOMED Code(s): 99452512 ICD Code: R06.89 - OTHER ABNORMALITIES OF BREATHING Status: Chronic Priority: High (5) UTI (urinary tract infection) SNOMED Code(s): 77220088 ICD Code: N39.0 - URINARY TRACT INFECTION, SITE NOT SPECIFIED Status: Resolved Priority: Medium Onset Date: ~03/06/18 Problem Details: Klebsiella Qualifiers: Urinary tract infection type: acute cystitis Hematuria presence: with hematuria Qualified Code(s): N30.01 - Acute cystitis with hematuria (6) CHF (congestive heart failure) SNOMED Code(s): 24982517 ICD Code: I50.9 - HEART FAILURE, UNSPECIFIED Status: Chronic Priority: Medium Problem Details: She did not have any trouble with any exacerbation of this. her home medications were continued. Qualifiers: Heart failure type: diastolic Heart failure chronicity: chronic Qualified Code(s): I50.32 - Chronic diastolic (congestive) heart failure (7) Chronic anemia SNOMED Code(s): 865812732 ICD Code: D64.9 - ANEMIA, UNSPECIFIED Status: Chronic Priority: Medium Problem Details: Hemoglobin stable on d/c (8) Diastolic heart failure SNOMED Code(s): 855877552 ICD Code: I50.30 - UNSPECIFIED DIASTOLIC (CONGESTIVE) HEART FAILURE Status : Chronic Priority: Medium Qualifiers: Heart failure chronicity: chronic Qualified Code(s): I50.32 - Chronic diastolic (congestive) heart failure (9) OAB (overactive bladder) SNOMED Code(s): 353094467 ICD Code: N32.81 - OVERACTIVE BLADDER Status: Chronic Priority: Medium Problem Details: live in place due to significant skin breakdown (10) PMR (polymyalgia rheumatica) SNOMED Code(s): 22561621 ICD Code: M35.3 - POLYMYALGIA RHEUMATICA Status: Chronic Priority: Medium (11) Paroxysmal atrial fibrillation SNOMED Code(s): 940037180 ICD Code: I48.0 - PAROXYSMAL ATRIAL FIBRILLATION Status: Chronic Priority : Medium Problem Details: not on anticoagulation due to bleeding concerns with chronic anemia (12) Pre-diabetes SNOMED Code(s): 754552584 ICD Code: R73.09 - OTHER ABNORMAL GLUCOSE Status: Chronic Priority: Medium (13) COPD exacerbation SNOMED Code(s): 812014281 ICD Code: J44.1 - CHRONIC OBSTRUCTIVE PULMONARY DISEASE W (ACUTE) EXACERBATION Status: Resolved Priority: Medium Problem Details: Taper to 7.5 mg will hold off on further taper until her wheezing improves - Patient Summary/Data Consults: Consultations 03/12/18 09:53 Consult to Music Librarian [CONS] Routine PT Evaluation and Treatment [CONS] Routine 03/23/18 08:23 OT Evaluation and Treatment [CONS] Routine - Patient Instructions Diet: Heart Healthy Diet Activity: As Tolerated Driving: Do Not Drive Notify Provider of: Fever, Nausea and/or Vomiting - Discharge Plan Prescriptions/Med Rec: Calcium Carbonate [Tums Extra Strength] 750 mg PO Q4HR PRN #30 tab.chew PRN Reason: Dyspepsia LORazepam [Ativan] 0.5 mg PO BEDTIME #30 tablet Nystatin [Nystatin Crm] 1 gm TOP BID 12 Days #1 tube Potassium Chloride [Potassium Chloride Solution] 20 meq PO BIDMEALS #60 cup predniSONE 7.5 mg PO WITHBREAKFAST #45 tablet Home Medications: Home Meds Calcium Citrate/Vitamin D3 [Calcium Citrate with D Tablet] 1 tab PO BIDMEALS [History] Cholecalciferol (Vitamin D3) [Vitamin D3] 2,000 unit PO DAILY 12/15/13 [History] Multivitamin [Multivitamins] 1 cap PO DAILY 12/15/13 [History] Ascorbate Calcium [Vitamin C] 500 mg PO DAILY 01/25/14 [History] Albuterol [Proventil Neb Soln] 2.5 mg NEB Q4H PRN 11/28/15 [History] Albuterol [Proventil Neb Soln] 2.5 mg NEB QID 11/28/15 [History] Aspirin 81 mg PO DAILY 11/28/15 [History] Cyanocobalamin (Vitamin B-12) [B-12] 500 mcg PO DAILY 11/28/15 [History] Furosemide 40 mg PO DAILY 11/28/15 [History] Magnesium Oxide [Magnesium] 400 mg PO DAILY 11/28/15 [History] Omeprazole 20 mg PO DAILY 11/28/15 [History] Simvastatin [Zocor] 10 mg PO BEDTIME 11/28/15 [History] Ferrous Gluconate 324 mg PO MOWEFR 02/19/16 [History] Metoprolol Tartrate [Lopressor] 50 mg PO BID tablet 02/25/16 [Rx] Acetaminophen [Tylenol] 650 mg PO Q4H PRN tablet 09/15/17 [Rx] Arformoterol [Brovana] 15 mcg NEB BID 03/07/18 [History] Budesonide [Pulmicort] 0.5 mg NEB BID 03/07/18 [History] Furosemide [Lasix] 20 mg PO DAILY@12 03/07/18 [History] Calcium Carbonate [Tums Extra Strength] 750 mg PO Q4HR PRN #30 tab.chew [Rx] LORazepam [Ativan] 0.5 mg PO BEDTIME #30 tablet 03/24/18 [Rx] Nystatin [Nystatin Crm] 1 gm TOP BID 12 Days #1 tube 03/24/18 [Rx] Potassium Chloride [Potassium Chloride Solution] 20 meq PO BIDMEALS #60 cup [Rx] predniSONE 7.5 mg PO WITHBREAKFAST #45 tablet 03/24/18 [Rx] - Discharge Summary/Plan Comment DC Time >30 min.: No - General Info Date of Service: 03/24/18 - Patient Data Vitals - Most Recent: Last Vital Signs Temp 97.5 F 03/25/18 06:00 Pulse 72 03/25/18 07:47 Resp 22 H 03/25/18 06:00 BP 158/87 H 03/25/18 07:47 Pulse Ox 93 L 03/25/18 06:48 Weight - Most Recent: 71.668 kg I&O - Last 24 hours: Intake & Output 03/24/18 03/25/18 03/25/18 22:59 06:59 14:59 Intake Total 240 360 Output Total 650 770 Balance -410 -770 360 Med Orders - Current: Current Medications Discontinued Medications Acetaminophen (Tylenol) 650 mg PO Q4H PRN PRN Reason: Pain (Mild 1-3)/fever Last Admin: 03/22/18 07:46 Dose: 650 mg Albuterol (Proventil Neb Soln) 2.5 mg NEB Q4H PRN PRN Reason: Shortness of Breath Albuterol (Proventil Neb Soln) 2.5 mg NEB QIDRT [facility] Last Admin: 03/25/18 06:45 Dose: 2.5 mg Arformoterol Tartrate (Brovana) 15 mcg INH BIDRT [facility] Last Admin: 03/25/18 06:45 Dose: 15 mcg Ascorbic Acid (Vitamin C) 500 mg PO DAILY [facility] Last Admin: 03/13/18 08:04 Dose: 500 mg Aspirin (Halfprin) 81 mg PO DAILY [facility] Last Admin: 03/25/18 07:46 Dose: 81 mg Budesonide (Pulmicort) 0.5 mg NEB BIDRT [facility] Last Admin: 03/25/18 06:45 Dose: 0.5 mg Calcium Carbonate/Glycine (Tums Extra Strength) 750 mg PO Q4HR PRN PRN Reason: Dyspepsia Calcium Citrate (Calcium Citrate + D) 1 tab PO BID [facility] Last Admin: 03/13/18 08:05 Dose: 1 tab Cholecalciferol (Vitamin D3) 2,000 units PO DAILY [facility] Last Admin: 03/13/18 08:03 Dose: 2,000 units Cyanocobalamin (Vitamin B12) 500 mcg PO DAILY [facility] Last Admin: 03/25/18 07:48 Dose: 500 mcg Enoxaparin Sodium (Lovenox) 40 mg SUBCUT DAILY [facility] Last Admin: 03/24/18 08:05 Dose: 40 mg Ferrous Sulfate (Ferrous Sulfate) 325 mg PO MoWeFr@0800 [facility] Last Admin: 03/25/18 07:46 Dose: 325 mg Furosemide (Lasix) 40 mg PO DAILY [facility] Last Admin: 03/25/18 07:47 Dose: 40 mg Furosemide (Lasix) 20 mg PO DAILY@12 [facility] Last Admin: 03/24/18 13:24 Dose: 20 mg Levofloxacin (Levaquin) 250 mg PO DAILY@0700 [facility] Stop: 03/13/18 07:01 Last Admin: 03/13/18 06:30 Dose: 250 mg Lorazepam (Ativan) 0.5 mg PO BEDTIME [facility] Last Admin: 03/24/18 19:34 Dose: 0.5 mg Lorazepam (Ativan) 0.5 mg PO Q4H PRN PRN Reason: Insomnia Magnesium Oxide (Magnesium Oxide) 400 mg PO DAILY [facility] Last Admin: 03/17/18 07:51 Dose: 400 mg Magnesium Oxide (Magnesium Oxide) 400 mg PO BID [facility] Last Admin: 03/25/18 07:48 Dose: 400 mg Metoprolol Tartrate (Lopressor) 50 mg PO BID [facility] Last Admin: 03/25/18 07:47 Dose: 50 mg Multivitamins/Minerals (Thera M Plus) 1 tab PO DAILY [facility] Last Admin: 03/13/18 08:04 Dose: 1 tab Nystatin (Nystatin Crm) 0 gm TOP BID [facility] Last Admin: 03/25/18 07:49 Dose: 1 applic Omeprazole (Omeprazole) 20 mg PO DAILY@0700 [facility] Last Admin: 03/25/18 06:12 Dose: 20 mg Potassium Chloride (Klor-Con M20) 20 meq PO DAILY [facility] Last Admin: 03/13/18 08:04 Dose: 20 meq Potassium Chloride (Potassium Chloride Solution) 20 meq PO DAILY [facility] Last Admin: 03/15/18 07:24 Dose: 20 meq Potassium Chloride (Potassium Chloride Solution) 40 meq PO BIDMEALS [facility] Last Admin: 03/17/18 07:50 Dose: 40 meq Potassium Chloride (Potassium Chloride Solution) 20 meq PO BIDMEALS [facility] Last Admin: 03/25/18 07:48 Dose: 20 meq Prednisone (Prednisone) 20 mg PO WITHBREAKFAST [facility] Last Admin: 03/17/18 07:51 Dose: 20 mg Prednisone (Prednisone) 10 mg PO WITHBREAKFAST [facility] Last Admin: 03/23/18 08:19 Dose: 10 mg Prednisone (Prednisone) 7.5 mg PO WITHBREAKFAST [facility] Last Admin: 03/24/18 08:04 Dose: 7.5 mg Prednisone (Prednisone) 5 mg PO WITHBREAKFAST [facility] Prednisone (Prednisone) 5 mg PO ONETIME ONE Stop: 03/24/18 20:23 Last Admin: 03/24/18 20:47 Dose: 5 mg Prednisone (Prednisone) 7.5 mg PO WITHBREAKFAST [facility] Last Admin: 03/25/18 07:49 Dose: 7.5 mg Simvastatin (Zocor) 10 mg PO BEDTIME [facility] Last Admin: 03/24/18 19:34 Dose: 10 mg Sodium Chloride (Saline Flush) 10 ml FLUSH ASDIRECTED PRN PRN Reason: Keep Vein Open Last Admin: 03/15/18 07:25 Dose: 10 ml
== END 2018-03-25 10:14 | DRG 191 ==
LOC: VM.MS 09:20
PROVIDERS: ADMIT Internal Medicine; ATTEND Internal Medicine
DX: J44.1 Chronic obstructive pulmonary disease with (acute) exacerbation (principal); J96.12 Chronic respiratory failure with hypercapnia; J96.11 Chronic respiratory failure with hypoxia; I50.32 Chronic diastolic (congestive) heart failure; N39.0 Urinary tract infection, site not specified; I48.0 Paroxysmal atrial fibrillation; B37.2 Candidiasis of skin and nail; R91.1 Solitary pulmonary nodule; M35.3 Polymyalgia rheumatica; D63.8 Anemia in other chronic diseases classified elsewhere; R32 Unspecified urinary incontinence; E87.6 Hypokalemia; R73.03 Prediabetes; E83.42 Hypomagnesemia; B96.1 Klebsiella pneumoniae [K. pneumoniae] as the cause of diseases classified elsewhere; G47.00 Insomnia, unspecified; N32.81 Overactive bladder; R53.1 Weakness; Z99.81 Dependence on supplemental oxygen; Z79.52 Long term (current) use of systemic steroids
CPT/HCPCS: 36415; 51702; 71046; 80048; 83735; 85025; 85652; 94640; 94667; 94668; 94760; 97110-GP; 97116-GP; 97165-GO; 97530-GP; 97535-GO; A9270-GY; J1650; J7050; J7613-GY